=== PATIENT | male | born 1940 | race Caucasian/White ===

== ENCOUNTER 2017-05-01 07:37 | Day surgery (SDC) | payer BC, MEDICARE ==
[2017-04-28 10:39] VITALS: BMI 26.4
[~2017-05-01 07:37] MED LIST: LACTATED RINGERS 1,000 ML IV SCH
[2017-05-01 07:51] VITALS: RESP 18; TEMP 98
[2017-05-01] MEDS ORDERED: LACTATED RINGERS 1,000 ML IV ONE (07:51)
[2017-05-01] MEDS ORDERED: LIDOCAINE 1% 20 ML VIAL (10MG/ML) FOR IV START INTRADERMA ONE (07:51)
[2017-05-01 08:01] LABS: Glucose,Whole Blood 112 mg/dL (75-99)
[2017-05-01] MEDS ORDERED: GLUCAGON 1 MG/ML VIAL ONE (08:20)
[2017-05-01] MEDS ORDERED: LIDOCAINE 1% INJ 10MG/ML (20 ML MDV) ONE (08:20)
[2017-05-01] MEDS ORDERED: PROPOFOL 10 MG/ML 20 ML VIAL IV ONE (08:20)
--- NOTE | 2017-05-01 08:39 | P.GSHP ---
History of Present Illness H&P Date: 05/01/17 Chief Complaint: GERD, screening colonoscopy This a 76-year-old male who presents today for EGD and screening colonoscopy. He's had issues with GERD. Past Medical History Past Medical History: Atrial Fibrillation, Cancer, COPD, Diabetes Mellitus, Eye Disorder, GERD/Reflux, Hyperlipidemia, Hypertension, Prostate Disorder, Sleep Apnea/CPAP/BIPAP Additional Past Medical History / Comment(s): skin cancer- squamous and pre- melanoma, macular degeneration, brain bleed- February 2016, back problems-uses walker , cane as needed. History of Any Multi-Drug Resistant Organisms: None Reported Past Surgical History: Back Surgery, Heart Catheterization, Hernia Repair, Joint Replacement, Orthopedic Surgery, Tonsillectomy Additional Past Surgical History / Comment(s): total rt knee replacement, reverse total rt shoulder, lt knee benign tumor removed external, internal. back surgery with laminectomy and fusion. stevie cataracts Past Anesthesia/Blood Transfusion Reactions: Family History of Problems w/ Anesthesia, Postoperative Nausea & Vomiting (PONV) Additional Past Anesthesia/Blood Transfusion Reaction / Comment(s): mother hx ponv Smoking Status: Former smoker - Past Family History Mother Family Medical History: Cancer Additional Family Medical History / Comment(s): uterine cancer, pre-cancer colon had bowel resection Father Family Medical History: Cancer Additional Family Medical History / Comment(s): lymphoma Medications and Allergies Home Medications Medication Instructions Recorded Confirmed Type Atorvastatin [Lipitor] 40 mg PO DAILY 04/28/17 04/28/17 History Calcium Citrate 250 mg PO DAILY 04/28/17 04/28/17 History Cetirizine HCl 10 mg PO DAILY 04/28/17 04/28/17 History Cyanocobalamin [Vitamin B-12] 500 mcg PO DAILY 04/28/17 04/28/17 History DULoxetine HCL [Cymbalta] 60 mg PO DAILY 04/28/17 04/28/17 History Diltiazem HCl [Cartia Xt] 120 mg PO DAILY 04/28/17 04/28/17 History Fluticasone Nasal [place] [Flonase 1 spray EA NOSTRIL BID 04/28/17 04/28/17 History Nasal [place]] Folic Acid 0.5 mg PO DAILY 04/28/17 04/28/17 History Hydrochlorothiazide 25 mg PO DAILY 04/28/17 04/28/17 History Magnesium 200 mg PO DAILY 04/28/17 04/28/17 History Omeprazole 20 mg PO DAILY 04/28/17 04/28/17 History Pregabalin [Lyrica] 50 mg PO BID 04/28/17 04/28/17 History Tamsulosin HCl [Flomax] 0.4 mg PO DAILY 04/28/17 04/28/17 History Vit C/E/Zn/Coppr/Lutein/Zeaxan 1 each PO BID 04/28/17 04/28/17 History [Preservision Areds 2 Softgel] Warfarin [Coumadin] 5 mg PO WE 04/28/17 04/28/17 History Warfarin [Coumadin] 7.5 mg PO SUMOTUTHFRSA 04/28/17 04/28/17 History metFORMIN HCL [Glucophage] 500 mg PO DAILY 04/28/17 04/28/17 History traMADol HCL [Ultram] 50 mg PO BID 04/28/17 04/28/17 History Allergies Allergy/AdvReac Type Severity Reaction Status Date / Time lisinopril Allergy coughing Verified 04/28/17 09:41 Surgical - Exam Vital Signs Temp Pulse Resp BP Pulse Ox 98.0 F 90 18 151/85 99 05/01/17 07:50 05/01/17 07:50 05/01/17 07:50 05/01/17 07:50 05/01/17 07:50 - General well developed, no distress - Eyes PERRL - ENT normal pinna - Neck no masses - Respiratory normal expansion - Cardiovascular Rhythm: regular - Abdomen Abdomen: soft, non tender Results - Labs Abnormal Lab Results - Last 24 Hours (Table) 05/01/17 Range/Units 07:59 POC Glucose (mg/dL) 112 H (75-99) mg/dL Assessment and Plan Plan: GERD. We'll perform EGD. We'll also perform screening colonoscopy.
--- NOTE | 2017-05-01 09:07 | P.OP ---
Date of Procedure: 05/01/17 Preoperative Diagnosis: GERD Screening colonoscopy Postoperative Diagnosis: Antral gastritis Hiatal hernia Esophagitis Diverticulosis Right colon polyp Procedure(s) Performed: EGD Colonoscopy Implants: Anesthesia: MAC Surgeon: Ivan Kline Pathology: other (Antrum, esophagus, right colon) Condition: stable Disposition: PACU Indications for Procedure: Operative Findings: Description of Procedure: The patient's placed on the endoscopy table lateral position. He received IV sedation. The gastroscope placed oropharynx and passed into the esophagus and the stomach. The scope was then placed through the pylorus. First and second portion of the duodenum appeared normal. The scope was then brought back the antrum this appeared mildly inflamed. A biopsies was performed. Opened retroflexed and the remainder of the stomach appeared normal. There was a moderate size hiatal hernia. The GE junction was at 38 cm. The distal esophagus appeared inflamed and a biopsies performed. The proximal esophagus appeared normal. The scope was withdrawn for patient. Next digital rectal exam was performed which revealed a few external hemorrhoids. The prostate was symmetric without nodules. The flexible colonoscope was then placed patient anus and passed throughout the entire colon. The ileocecal valve was visualized. The scope was then brought back and the right colon there was a small sessile polyp. This removed the forcep. The remainder of the transverse colon appeared normal. In the descending; there is mild diverticular changes. The scope was then brought back the rectum and this appeared normal. Scope was withdrawn for patient.
[2017-05-01 09:26] VITALS: BP 181/83; PULSE 69
== END 2017-05-01 10:17 | disposition home or self-care (01) ==
LOC: ORWHC2ENDO 07:37
PROVIDERS: ATTEND Surgery
DX: Z12.11 Encounter for screening for malignant neoplasm of colon (principal); K29.50 Unspecified chronic gastritis without bleeding; K21.0 Gastro-esophageal reflux disease with esophagitis; K20.0 Eosinophilic esophagitis; K44.9 Diaphragmatic hernia without obstruction or gangrene; D12.2 Benign neoplasm of ascending colon; K57.30 Diverticulosis of large intestine without perforation or abscess without bleeding; K64.4 Residual hemorrhoidal skin tags; I48.91 Unspecified atrial fibrillation; Z79.01 Long term (current) use of anticoagulants; J44.9 Chronic obstructive pulmonary disease, unspecified; E11.9 Type 2 diabetes mellitus without complications; Z79.84 Long term (current) use of oral hypoglycemic drugs; G47.33 Obstructive sleep apnea (adult) (pediatric); Z99.89 Dependence on other enabling machines and devices; H35.30 Unspecified macular degeneration; I10 Essential (primary) hypertension; E78.5 Hyperlipidemia, unspecified; Z87.891 Personal history of nicotine dependence; Z79.891 Long term (current) use of opiate analgesic; Z79.51 Long term (current) use of inhaled steroids; Z79.899 Other long term (current) drug therapy; Z88.8 Allergy status to other drugs, medicaments and biological substances
CPT/HCPCS: 88305; 88342; 45380; 43239; J1610; J2001; J2704

== ENCOUNTER → 2017-05-12 | Outpatient (CLI) | payer MEDICARE, BC ==
[2017-05-12 14:43] LABS: INR 1.1 (<1.2); Partial Thromboplastin Time 24.3 sec (22.0-30.0)
== END | disposition home or self-care (01) ==
LOC: LABWHC1 14:16
PROVIDERS: ATTEND Physical Medicine & Rehabilitation
DX: M48.06 Spinal stenosis, lumbar region (principal); M43.16 Spondylolisthesis, lumbar region; M41.26 Other idiopathic scoliosis, lumbar region; M51.17 Intervertebral disc disorders with radiculopathy, lumbosacral region; M47.817 Spondylosis without myelopathy or radiculopathy, lumbosacral region; M54.5 Low back pain; M47.814 Spondylosis without myelopathy or radiculopathy, thoracic region; Z79.01 Long term (current) use of anticoagulants; Z98.890 Other specified postprocedural states; Z96.651 Presence of right artificial knee joint
CPT/HCPCS: 36415; 85610; 85730

== ENCOUNTER → 2017-05-28 | Outpatient (CLI) | payer MEDICARE, BC ==
[2017-05-28 16:56] LABS: Partial Thromboplastin Time 33.9 sec (22.0-30.0); Prothrombin Time 39.5 sec (9.0-12.0)
[2017-05-28 17:10] LABS: Potassium 3.9 mmol/L (3.5-5.1)
== END | disposition home or self-care (01) ==
LOC: LABPAT 15:50
PROVIDERS: ATTEND Surgery
DX: Z01.818 Encounter for other preprocedural examination (principal); I48.91 Unspecified atrial fibrillation; Z51.81 Encounter for therapeutic drug level monitoring; Z79.01 Long term (current) use of anticoagulants
CPT/HCPCS: 80051; 85610; 85730

== ENCOUNTER 2017-06-05 06:26 | Day surgery (SDC) | payer MEDICARE ==
[2017-05-27 16:58] VITALS: BMI 26.4
[~2017-06-05 06:26] MED LIST changes: +HEPARIN SODIUM,PORCINE 5,000 UNIT/ML 1 ML VIAL SQ ONE; +HYDROmorphone 1 MG/ML 1 ML SYRINGE IVP PRN; -LACTATED RINGERS 1,000 ML IV SCH; +ONDANSETRON 4 MG/2 ML VIAL IVP PRN; +ceFAZolin 2 GM in SODIUM CHLORIDE 0.9% 100 ML IVPB ONE
[2017-06-05] MEDS ORDERED: LIDOCAINE 1% 20 ML VIAL (10MG/ML) FOR IV START INTRADERMA ONE (07:01)
[2017-06-05] MEDS: LACTATED RINGERS 1,000 ML IV SCH (07:01)
[2017-06-05 07:05] LABS: Glucose,Whole Blood 130 mg/dL (75-99)
[2017-06-05] MEDS ORDERED: BUPIVACAINE (PF) 0.25% 30 ML VIAL SQ ONE (07:25)
[2017-06-05 07:39] LABS: Partial Thromboplastin Time 24.6 sec (22.0-30.0)
[2017-06-05 07:41] LABS: INR 1.1 (<1.2)
--- NOTE | 2017-06-05 07:55 | P.GSHP ---
History of Present Illness H&P Date: 06/05/17 Chief Complaint: GERD This is a 76-year-old male referred from Dr. merrill.The patient has had long- standing problems with reflux esophagitis. The patient underwent recent EGD is found have evidence of esophagitis. Patient has been well informed on the procedure of laparoscopic Edwin fundoplication. The patient is aware the risk of the conversion to the open procedure, risk of injury to the stomach, liver and spleen. The patient is also a risk of recurrent GERD and dysphagia symptoms. The patient understands there is a postoperative diet of full liquids for 2 weeks after surgery. Past Medical History Past Medical History: Atrial Fibrillation, Cancer, COPD, Diabetes Mellitus, Eye Disorder, GERD/Reflux, Hyperlipidemia, Hypertension, Prostate Disorder, Sleep Apnea/CPAP/BIPAP Additional Past Medical History / Comment(s): skin cancer- squamous and pre- melanoma, macular degeneration, brain bleed- February 2016, back problems-uses walker , cane as needed. History of Any Multi-Drug Resistant Organisms: None Reported Past Surgical History: Back Surgery, Heart Catheterization, Hernia Repair, Joint Replacement, Orthopedic Surgery, Tonsillectomy Additional Past Surgical History / Comment(s): total rt knee replacement, reverse total rt shoulder, lt knee benign tumor removed external, internal. back surgery with laminectomy and fusion. stevie cataracts Past Anesthesia/Blood Transfusion Reactions: Family History of Problems w/ Anesthesia, Postoperative Nausea & Vomiting (PONV) Additional Past Anesthesia/Blood Transfusion Reaction / Comment(s): mother hx ponv Smoking Status: Former smoker - Past Family History Mother Family Medical History: Cancer Additional Family Medical History / Comment(s): uterine cancer, pre-cancer colon had bowel resection Father Family Medical History: Cancer Additional Family Medical History / Comment(s): lymphoma Medications and Allergies Home Medications Medication Instructions Recorded Confirmed Type Atorvastatin [Lipitor] 40 mg PO DAILY 04/28/17 06/05/17 History Calcium Citrate 250 mg PO DAILY 04/28/17 06/05/17 History Cetirizine HCl 10 mg PO DAILY 04/28/17 06/05/17 History Cyanocobalamin [Vitamin B-12] 500 mcg PO DAILY 04/28/17 06/05/17 History DULoxetine HCL [Cymbalta] 60 mg PO DAILY 04/28/17 06/05/17 History Diltiazem HCl [Cartia Xt] 120 mg PO DAILY 04/28/17 06/05/17 History Fluticasone Nasal [place] [Flonase 1 spray EA NOSTRIL BID 04/28/17 06/05/17 History Nasal [place]] Folic Acid 0.5 mg PO DAILY 04/28/17 06/05/17 History Hydrochlorothiazide 25 mg PO DAILY 04/28/17 06/05/17 History Magnesium 200 mg PO DAILY 04/28/17 06/05/17 History Omeprazole 20 mg PO DAILY 04/28/17 06/05/17 History Pregabalin [Lyrica] 50 mg PO BID 04/28/17 06/05/17 History Tamsulosin HCl [Flomax] 0.4 mg PO DAILY 04/28/17 06/05/17 History Vit C/E/Zn/Coppr/Lutein/Zeaxan 1 each PO BID 04/28/17 06/05/17 History [Preservision Areds 2 Softgel] Warfarin [Coumadin] 5 mg PO WE 04/28/17 06/05/17 History Warfarin [Coumadin] 7.5 mg PO SUMOTUTHFRSA 04/28/17 06/05/17 History metFORMIN HCL [Glucophage] 500 mg PO DAILY 04/28/17 06/05/17 History traMADol HCL [Ultram] 50 mg PO BID 04/28/17 06/05/17 History Allergies Allergy/AdvReac Type Severity Reaction Status Date / Time lisinopril Allergy coughing Verified 06/05/17 06:47 Surgical - Exam Vital Signs Temp Pulse Resp BP Pulse Ox 97.7 F 73 16 150/76 97 06/05/17 06:52 06/05/17 06:52 06/05/17 06:52 06/05/17 06:52 06/05/17 06:52 - General well developed, no distress - Eyes PERRL - ENT normal pinna - Neck no masses - Respiratory normal expansion - Cardiovascular Rhythm: regular - Abdomen Abdomen: soft, non tender Results - Labs Abnormal Lab Results - Last 24 Hours (Table) 06/05/17 Range/Units 06:55 POC Glucose (mg/dL) 130 H (75-99) mg/dL Assessment and Plan Plan: GERD. We'll perform laparoscopic Edwin fundoplication.
[2017-06-05] MEDS ORDERED: ROCURONIUM BROMIDE 10 MG/ML 10 ML VIAL IV ONE (07:59)
[2017-06-05] MEDS ORDERED: LIDOCAINE 1% INJ 10MG/ML (20 ML MDV) ONE (07:59)
[2017-06-05] MEDS ORDERED: GLYCOPYRROLATE 0.2 MG/ML 2 ML VIAL ONE (07:59)
[2017-06-05] MEDS ORDERED: LABETALOL 5 MG/ML VIAL MDV ONE (07:59)
[2017-06-05] MEDS ORDERED: MIDAZOLAM 2 MG/2 ML VIAL ONE (07:59)
[2017-06-05] MEDS ORDERED: PROPOFOL 10 MG/ML 20 ML VIAL IV ONE (07:59)
[2017-06-05] MEDS ORDERED: NEOSTIGMINE 1 MG/ML 10 ML VIAL ONE (07:59)
[2017-06-05] MEDS ORDERED: PHENYLEPHRINE-0.9% NACL SYG 1 MG/10 ML SYRINGE ONE (07:59)
[2017-06-05] MEDS ORDERED: fentaNYL (PF) 50 MCG/ML 2 ML AMP ONE (07:59)
[2017-06-05] MEDS ORDERED: ePHEDrine SULFATE/0.9% NACL/PF 50 MG/5 ML SYRINGE IV ONE (07:59)
[2017-06-05] MEDS ORDERED: SUCCINYLCHOLINE CHLORIDE 100 MG/5 ML SYR IV ONE (07:59)
[2017-06-05] MEDS ORDERED: LACTATED RINGERS 1,000 ML IV ONE (08:53)
--- NOTE | 2017-06-05 08:57 | P.OP ---
Date of Procedure: 06/05/17 Preoperative Diagnosis: GERD Postoperative Diagnosis: GERD Procedure(s) Performed: Laparoscopic Edwin fundal plication Implants: Anesthesia: ANNIA Surgeon: Ivan Kline Estimated Blood Loss (ml): 5 Pathology: none sent Condition: stable Disposition: PACU Indications for Procedure: Operative Findings: Description of Procedure: HaThe patient was placed on the operating table in the supine position. The patient received general anesthesia. And was placed in dorsal lithotomy position. The patient was prepped and draped in the usual sterile fashion. The skin incision sites were anesthetized with 1% local Xylocaine. The skin was incised in the left periumbilical area and then using a blade less 5 mm trocar under direct visualization panel cavity was entered. After adequate insufflation the laparoscope was then placed into the peritoneal cavity. Next a 5 mm trochars placed in the right epigastric position. Another 5 millimeter trocar the right lateral position. Another 5 millimeter trocar in the left lateral position a 5 mm trocar is placed in the left epigastric position. And then the initial 5 mm trocar was exchanged for a 10 mm trocar. The left lateral lobe liver was retracted. The hernia was seen. The crural defect was then dissected using the Harmonic scissors device. A 360 crural dissection was performed the esophagus stomach was reduced back into the peritoneal Cavity. The crural defect was then closed using 2-0 Ethibond suture. Next the fundus of the stomach was mobilized using the Harvard scissors device. and then a 58-Kinyarwanda bougie dilator was placed oropharynx passed into the esophagus and stomach the fundal plication wrap was then performed by grasping the fundus posteriorly and bringing it around the esophagus and stomach fundoplication was then performed using 2-0 Ethibond suture. Care was taken that the fundal location rested over top of the intra-abdominal esophagus. There was no injury seen to the stomach or esophagus. The dilator was then withdrawn. The abdomen was irrigated there is no bleeding seen. The trochars were then withdrawn and then skin incision sites were closed using 3-0 Monocryl suture Steri-Strips are applied. Patient thought procedure well and sent to recovery room in stable condition.
[2017-06-05] MEDS ORDERED: ONDANSETRON 4 MG/2 ML VIAL IVP PRN (08:59)
[2017-06-05] MEDS ORDERED: HYDROmorphone 1 MG/ML 1 ML SYRINGE IVP PRN (08:59)
[2017-06-05 09:35] LABS: Glucose,Whole Blood 131 mg/dL (75-99)
[2017-06-05] MEDS: hydrALAZINE HCL 20 MG/ML 1 ML VIAL IVP ONE ×2 (09:48→09:59)
--- NOTE | 2017-06-05 11:25 | P.CONS ---
History of Present Illness - Reason for Consult Consult date: 06/05/17 Medical management Requesting physician: Ivan Kline - Chief Complaint Status post Edwin fundoplication - History of Present Illness This is a 76-year-old male, patient of Dr. Morelos. Patient has a known past medical history of GERD, atrial fibrillation, IVs mellitus type II, hyperlipidemia, hypertension, obstructive sleep apnea and a brain bleed in February 2016 after a fall. Patient did not require any surgical intervention at that time. Patient is currently in the hospital for Edwin fundoplication for his severe acid reflux. Patient tolerated surgery well. He is awake and alert. Reports that his pain is controlled. He did have some elevated blood pressures after surgery. N did require dose of IV hydralazine. Blood pressures have shown improvement. All medications will be restarted. Patient did not take blood pressure medications this morning. Patient denies any chest pain or shortness breath. Denies any nausea or vomiting. Bowel movements prior to surgery later normal. He does have a history of BPH in which she is on Flomax otherwise no new urinary symptoms. Review of Systems Please refer to HPI otherwise unremarkable Past Medical History Past Medical History: Atrial Fibrillation, Cancer, COPD, Diabetes Mellitus, Eye Disorder, GERD/Reflux, Hyperlipidemia, Hypertension, Prostate Disorder, Sleep Apnea/CPAP/BIPAP Additional Past Medical History / Comment(s): skin cancer- squamous and pre- melanoma, macular degeneration, brain bleed- February 2016, back problems-uses walker , cane as needed. History of Any Multi-Drug Resistant Organisms: None Reported Past Surgical History: Back Surgery, Heart Catheterization, Hernia Repair, Joint Replacement, Orthopedic Surgery, Tonsillectomy Additional Past Surgical History / Comment(s): total rt knee replacement, reverse total rt shoulder, lt knee benign tumor removed external, internal. back surgery with laminectomy and fusion. stevie cataracts Past Anesthesia/Blood Transfusion Reactions: Family History of Problems w/ Anesthesia, Postoperative Nausea & Vomiting (PONV) Additional Past Anesthesia/Blood Transfusion Reaction / Comm: mother hx ponv Smoking Status: Former smoker - Past Family History Mother Family Medical History: Cancer Additional Family Medical History / Comment(s): uterine cancer, pre-cancer colon had bowel resection Father Family Medical History: Cancer Additional Family Medical History / Comment(s): lymphoma Medications and Allergies Home Medications Medication Instructions Recorded Confirmed Type Atorvastatin [Lipitor] 40 mg PO DAILY 04/28/17 06/05/17 History Calcium Citrate 250 mg PO DAILY 04/28/17 06/05/17 History Cetirizine HCl 10 mg PO DAILY 04/28/17 06/05/17 History Cyanocobalamin [Vitamin B-12] 500 mcg PO DAILY 04/28/17 06/05/17 History DULoxetine HCL [Cymbalta] 60 mg PO DAILY 04/28/17 06/05/17 History Diltiazem HCl [Cartia Xt] 120 mg PO DAILY 04/28/17 06/05/17 History Fluticasone Nasal [place] [Flonase 1 spray EA NOSTRIL BID 04/28/17 06/05/17 History Nasal [place]] Folic Acid 0.5 mg PO DAILY 04/28/17 06/05/17 History Hydrochlorothiazide 25 mg PO DAILY 04/28/17 06/05/17 History Magnesium 200 mg PO DAILY 04/28/17 06/05/17 History Omeprazole 20 mg PO DAILY 04/28/17 06/05/17 History Pregabalin [Lyrica] 50 mg PO BID 04/28/17 06/05/17 History Tamsulosin HCl [Flomax] 0.4 mg PO DAILY 04/28/17 06/05/17 History Vit C/E/Zn/Coppr/Lutein/Zeaxan 1 each PO BID 04/28/17 06/05/17 History [Preservision Areds 2 Softgel] Warfarin [Coumadin] 5 mg PO WE 04/28/17 06/05/17 History Warfarin [Coumadin] 7.5 mg PO SUMOTUTHFRSA 04/28/17 06/05/17 History metFORMIN HCL [Glucophage] 500 mg PO DAILY 04/28/17 06/05/17 History traMADol HCL [Ultram] 50 mg PO BID 04/28/17 06/05/17 History Allergies Allergy/AdvReac Type Severity Reaction Status Date / Time lisinopril Allergy coughing Verified 06/05/17 06:47 Physical Exam Vitals: Vital Signs Temp Pulse Pulse Resp BP BP Pulse Ox 06/05/17 10:10 68 16 123/58 93 L 06/05/17 10:05 133/62 06/05/17 09:59 148/69 06/05/17 09:53 61 16 164/77 98 06/05/17 09:47 173/85 06/05/17 09:42 174/83 06/05/17 09:38 56 L 16 189/85 100 06/05/17 09:23 62 16 194/91 100 06/05/17 09:08 97 F L 82 12 198/91 97 06/05/17 06:52 97.7 F 73 16 150/76 97 Intake and Output 06/04/17 06/05/17 06/05/17 22:59 06:59 14:59 Intake Total 1350 Output Total 10 Balance 1340 Intake: IV 1350 Output: Estimated Blood Loss 10 Head normocephalic Neck supple Lungs clear to auscultation bilaterally no wheezing or crackles Heart irregular rhythm Abdomen is soft nontender nondistended hypoactive bowel sounds. Incision sites clean dry and intact Extremities no edema Neuro alert and orientated to 3 Results Labs: Abnormal Lab Results - Last 24 Hours (Table) 06/05/17 06/05/17 Range/Units 06:55 09:33 POC Glucose (mg/dL) 130 H 131 H (75-99) mg/dL Assessment and Plan Plan: 1. GERD: Status post Edwin fundoplication 2. Essential hypertension with episodes of accelerated hypertension after surgery. Patient did require 1 dose of IV hydralazine. Blood pressures are now stable. We'll resume his Cardizem today. Continue to monitor blood pressures 3. Chronic atrial fibrillation: Anticoagulated with Coumadin at home. We'll have nursing staff verify with surgeon if it is okay to resume Coumadin. Continue Cardizem. Monitor daily PT/INRs 4. History of obstructive sleep apnea: Patient brought CPAP from home 5. Diabetes mellitus type 2: Hold metformin while hospitalized. Add Humalog with sliding scale coverage 6. Hyperlipidemia resume Lipitor 7. History of brain bleed in February 2016 after a fall from a ladder an injury to his head. DVT prophylaxis subcu Lovenox Check CBC, CMP and PT/INR Thank you for this consultation. We will continue to follow along with you during patient's hospitalization. Time with Patient: Greater than 30 (Greater than 50% of the total time spent in counseling and coordination of care.I performed an examination of the patient and discussed their management with the physician Cmm Technician. I have reviewed the Physician Cmm Technician's notes and agree with the documented findings and plan of care)
[2017-06-05 11:34] LABS: Glucose,Whole Blood 149 mg/dL (75-99)
[2017-06-05 11:58] LABS: Basophils % (A) 0 %; CH 29.3; CHCM 33.2; Eosinophils # (A) 0.1 k/uL (0-0.7); Eosinophils % (A) 1 %; HCT 35.7 % (39.0-53.0); HDW 2.49; Luc # (Auto) 0.21; Luc % (Auto) 3; Lymphocytes # (A) 1.7 k/uL (1.0-4.8); Lymphocytes % (A) 21 %; MCH 29.7 pg (25.0-35.0); MCHC 33.5 g/dL (31.0-37.0); MCV 88.6 fL (80.0-100.0); Monocytes # (A) 0.5 k/uL (0-1.0); Monocytes % (A) 7 %; Neutrophils # (A) 5.4 k/uL (1.3-7.7); Neutrophils % (A) 68 %; RBC 4.03 m/uL (4.30-5.90); RDW 13.5 % (11.5-15.5); WBC (Perox) 8.32
[2017-06-05 12:10] LABS: ALT 45 U/L (21-72); AST 32 U/L (17-59); Alkaline Phosphatase 100 U/L (38-126); Anion Gap 11 mmol/L; Blood Urea Nitrogen 23 mg/dL (9-20); Calcium 8.9 mg/dL (8.4-10.2); Carbon Dioxide 26 mmol/L (22-30); Chloride 101 mmol/L (98-107); Glucose 148 mg/dL (74-99); Non-African American GFR(MDRD) >60 (>60 ml/min/1.73 sqM); Potassium 3.7 mmol/L (3.5-5.1); Sodium 138 mmol/L (137-145); Total Bilirubin 0.5 mg/dL (0.2-1.3); Total Protein 6.1 g/dL (6.3-8.2)
[2017-06-05] MEDS: TAMSULOSIN 0.4 MG CAP.ER.24H PO SCH ×2 (12:59→13:30)
[2017-06-05] MEDS: DILTIAZEM CD 120 MG CAP.ER.24H PO SCH ×2 (12:59→13:30)
[2017-06-05] MEDS: ENOXAPARIN 40 MG/0.4 ML SYRINGE SQ SCH (12:59)
[2017-06-05] MEDS: INSULIN LISPRO (humaLOG) 300 UNIT/3 ML VIAL SQ SCH ×3 (13:30→20:30)
[2017-06-05] MEDS: D5-0.45% NACL WITH KCL 20MEQ/L 1,000 ML IV SCH ×2 (13:57→17:53)
--- NOTE | 2017-06-05 14:52 | FL ---
EXAMINATION TYPE: FL esophagus cervic/pharynx DATE OF EXAM: 06/05/2017 LIMITED UGI-ESOPHAGRAM: CLINICAL HISTORY: History of epigastric pain, reflux, and hiatal hernia status post Brien fundoplic ation surgery earlier today. TECHNIQUE: Limited esophagram is performed utilizing 10 oz of Omnipaque 350. A total of 74 seconds o f fluoroscopic time was utilized during procedure. FINDINGS: The patient swallowed contrast without difficulty or delay. Some esophageal dysmotility wi th abnormal dilatation secondary and tertiary contractions is present. There is small amount of free air consistent with recent surgery noted. There is mild to moderate delay in flow of contrast along t he diaphragmatic hiatus into the stomach at site of surgery, there is no evidence of contrast extrava sation to suggest leak. Some contrast flows, other remains within distal esophagus after 1 to 2 ashish dillon. No persistent hiatal hernia is seen. Patient remains asymptomatic. IMPRESSION: No evidence of leak status post Brien fundoplication surgery earlier today. There is mil d to moderate obstruction but patient is noted to remain asymptomatic.
[2017-06-05 16:36] LABS: Glucose,Whole Blood 131 mg/dL (75-99)
[2017-06-05] MEDS: LIDOCAINE 5% PATCH TOPICAL SCH (17:49)
[2017-06-05] MEDS ORDERED: WARFARIN 7.5 MG TAB PO SCH (18:00)
[2017-06-05 19:39] LABS: Hemoglobin A1C 6.5 % (4.2-6.1)
[2017-06-05 20:23] LABS: Glucose,Whole Blood 150 mg/dL (75-99)
[2017-06-05] MEDS: PREGABALIN 50 MG CAP PO SCH (20:29)
[2017-06-05] MEDS: FLUTICASONE 50MCG/SPRAY NASAL 16GM EA NOSTRIL SCH (20:30)
[2017-06-05 22:40] VITALS: RESP 16
[2017-06-06] MEDS: D5-0.45% NACL WITH KCL 20MEQ/L 1,000 ML IV SCH ×2 (06:00→08:21)
[2017-06-06] MEDS: LACTATED RINGERS 1,000 ML IV SCH (06:06)
[2017-06-06] MEDS ORDERED: PANTOPRAZOLE 40 MG TABLET PO SCH (06:30)
[2017-06-06 07:07] LABS: Basophils % (A) 0 %; CH 30.2; CHCM 33.4; Eosinophils # (A) 0.1 k/uL (0-0.7); Eosinophils % (A) 2 %; HCT 37.5 % (39.0-53.0); HDW 2.37; HGB 12.2 gm/dL (13.0-17.5); Luc # (Auto) 0.17; Luc % (Auto) 2; Lymphocytes # (A) 1.4 k/uL (1.0-4.8); Lymphocytes % (A) 19 %; MCH 29.6 pg (25.0-35.0); MCHC 32.6 g/dL (31.0-37.0); MCV 90.8 fL (80.0-100.0); Mean Platelet Volume 8.6; Monocytes # (A) 0.5 k/uL (0-1.0); Monocytes % (A) 7 %; Neutrophils # (A) 4.9 k/uL (1.3-7.7); Neutrophils % (A) 69 %; RBC 4.13 m/uL (4.30-5.90); RDW 14.5 % (11.5-15.5); WBC 7.2 k/uL (3.8-10.6); WBC (Perox) 6.94
[2017-06-06 07:10] LABS: INR 1.1 (<1.2); Prothrombin Time 11.5 sec (9.0-12.0)
[2017-06-06 07:29] LABS: ALT 35 U/L (21-72); AST 32 U/L (17-59); Alkaline Phosphatase 98 U/L (38-126); Anion Gap 9 mmol/L; Blood Urea Nitrogen 10 mg/dL (9-20); Calcium 8.8 mg/dL (8.4-10.2); Carbon Dioxide 28 mmol/L (22-30); Chloride 102 mmol/L (98-107); Glucose 137 mg/dL (74-99); Non-African American GFR(MDRD) >60 (>60 ml/min/1.73 sqM); Potassium 4.3 mmol/L (3.5-5.1); Sodium 139 mmol/L (137-145); Total Bilirubin 0.7 mg/dL (0.2-1.3); Total Protein 6.1 g/dL (6.3-8.2)
[2017-06-06 07:30] LABS: Glucose,Whole Blood 144 mg/dL (75-99)
[2017-06-06] MEDS: INSULIN LISPRO (humaLOG) 300 UNIT/3 ML VIAL SQ SCH ×2 (08:19→12:19)
[2017-06-06] MEDS: LIDOCAINE 5% PATCH TOPICAL SCH (08:19)
[2017-06-06] MEDS: DILTIAZEM CD 120 MG CAP.ER.24H PO SCH (08:20)
[2017-06-06] MEDS: TAMSULOSIN 0.4 MG CAP.ER.24H PO SCH (08:20)
[2017-06-06] MEDS: ENOXAPARIN 40 MG/0.4 ML SYRINGE SQ SCH (08:20)
[2017-06-06] MEDS: FLUTICASONE 50MCG/SPRAY NASAL 16GM EA NOSTRIL SCH (08:21)
[2017-06-06] MEDS: PREGABALIN 50 MG CAP PO SCH (08:24)
[2017-06-06] MEDS ORDERED: DILTIAZEM CD 120 MG CAP.ER.24H PO SCH (09:00)
[2017-06-06] MEDS ORDERED: HYDROCHLOROTHIAZIDE 25 MG TAB PO SCH (09:00)
[2017-06-06] MEDS ORDERED: DULoxetine HCL 60 MG CAPSULE.DR PO SCH (09:00)
[2017-06-06] MEDS ORDERED: CALCIUM CARBONATE 500 MG CHEWABLE PO SCH (09:00)
[2017-06-06] MEDS ORDERED: MAGNESIUM OXIDE 400 MG TAB PO SCH (09:00)
[2017-06-06] MEDS ORDERED: VIT A,C & E-LUTEIN-MINERALS 1 EACH TAB PO SCH (09:00)
[2017-06-06] MEDS ORDERED: LORATADINE 10 MG TAB PO SCH (09:00)
[2017-06-06] MEDS ORDERED: ATORVASTATIN 40 MG TAB PO SCH (09:00)
[2017-06-06 11:56] LABS: Glucose,Whole Blood 126 mg/dL (75-99)
[2017-06-06] MEDS ORDERED: FOLIC ACID 1 MG TAB PO SCH (12:00)
[2017-06-06] MEDS ORDERED: CYANOCOBALAMIN 500 MCG TAB PO SCH (12:00)
[2017-06-06 15:43] VITALS: BP 118/70; PULSE 104; TEMP 98.1
--- NOTE | 2017-06-06 15:46 | P.PN ---
Subjective Patient status post Edwin fundal plication. Tolerating clear liquid diet. Last night patient had episode of chest pressure EKG had shown accelerated junctional rhythm. Patient has had no longer having chest pressure. Blood pressures were elevated this morning. Since his tolerating diet fluids and been discontinued blood pressures are showing improvement. He did have a blood pressure as high as 196/84. Repeat blood pressure is 155%. Patient reports having bowel movements. I did have one episode of urinary retention that improved after straight catheterization since then he has been able to urinate on his own Objective - Vital Signs Vital signs: Vital Signs Temp 97.7 F 06/06/17 07:00 Pulse 79 06/06/17 07:00 Resp 16 06/06/17 07:00 BP 155/77 06/06/17 11:36 Pulse Ox 93 L 06/06/17 07:00 Intake & Output 06/05/17 06/06/17 06/06/17 18:59 06:59 18:59 Intake Total 1590 1800 Output Total 685 1300 Balance 905 500 Weight 74.389 kg Intake: IV 1350 Intake, IV Titration 1250 Amount D5-0.45% NaCl with KCl 1250 20Meq/l 1,000 ml @ 125 mls/hr IV .Q8H [facility], [facility] Rx#: [id number] Oral 240 550 Output: Urine 675 1300 Straight 675 Estimated Blood Loss 10 Other: Voiding Method Urinal Urinal - Exam Head normocephalic Neck supple Lungs clear to auscultation bilaterally no wheezing or crackles Heart regular rate and rhythm S1-S2, no rub or gallop Abdomen is soft nontender nondistended positive bowel sounds no hepatosplenomegaly Extremities no edema Neuro alert and orientated to 3 - Labs CBC & Chem 7: 06/06/17 06:38 06/06/17 06:38 Labs: Abnormal Lab Results - Last 24 Hours (Table) 06/05/17 06/05/17 06/05/17 Range/Units 11:25 16:16 20:22 RBC (4.30-5.90) m/uL Hgb (13.0-17.5) gm/dL Hct (39.0-53.0) % Glucose (74-99) mg/dL POC Glucose (mg/dL) 131 H 150 H (75-99) mg/dL Hemoglobin A1c 6.5 H (4.2-6.1) % Total Protein (6.3-8.2) g/dL 06/06/17 06/06/17 06/06/17 Range/Units 06:38 06:38 07:21 RBC 4.13 L (4.30-5.90) m/uL Hgb 12.2 L (13.0-17.5) gm/dL Hct 37.5 L (39.0-53.0) % Glucose 137 H (74-99) mg/dL POC Glucose (mg/dL) 144 H (75-99) mg/dL Hemoglobin A1c (4.2-6.1) % Total Protein 6.1 L (6.3-8.2) g/dL 06/06/17 Range/Units 11:51 RBC (4.30-5.90) m/uL Hgb (13.0-17.5) gm/dL Hct (39.0-53.0) % Glucose (74-99) mg/dL POC Glucose (mg/dL) 126 H (75-99) mg/dL Hemoglobin A1c (4.2-6.1) % Total Protein (6.3-8.2) g/dL Assessment and Plan Plan: 1. GERD: Status post Edwin fundoplication 2. Essential hypertension with episodes of accelerated hypertension after surgery. Patient did require 1 dose of IV hydralazine. Blood pressures are now stable. We'll resume his Cardizem today. Continue to monitor blood pressures. Patient did have elevated blood pressures improved after IV fluids discontinued. 3. Chronic atrial fibrillation: Anticoagulated with Coumadin at home. Patient was restarted on his Coumadin 4. History of obstructive sleep apnea: Patient brought CPAP from home 5. Diabetes mellitus type 2: Hold metformin while hospitalized. Add Humalog with sliding scale coverage 6. Hyperlipidemia resume Lipitor 7. History of brain bleed in February 2016 after a fall from a ladder an injury to his head. 8. Chest pressure likely secondary to gas buildup from surgery. Symptoms have resolved. EKG had shown accelerated junctional rhythm. Reviewed with Dr. Soto. Patient is stable for discharge Patient follow-up with PCP in 1 week and to continue home medications. DVT prophylaxis subcu Lovenox
--- NOTE | 2017-06-06 15:48 | P.DS ---
Providers Date of admission: 06/05/2017 Expected date of discharge: 06/06/17 Attending physician: Ivan Kline Consults: 06/05/17 08:59 Consult Physician Routine Consulting Provider: Milan Soto Consult Reason/Comments: Medical management Do you want consulting provider notified?: Yes Primary care physician: [facility] Course: This is a 76-year-old male underwent laparoscopic Edwin location. Patient's postoperative arrival. Please see chart for details. Procedures: Laparoscopic Edwin fundal plication Patient Condition at Discharge: Good Plan - Discharge Summary New Discharge Prescriptions: New Docusate [Colace] 100 mg PO BID #20 capsule HYDROcodone/APAP 7.5-325MG [[place] 7.5] 1 each PO Q4H PRN #60 tab PRN Reason: Pain No Action Diltiazem HCl [Cartia Xt] 120 mg PO DAILY Vit C/E/Zn/Coppr/Lutein/Zeaxan [Preservision Ared[place] 2 Softgel] 1 each PO BID Cyanocobalamin [Vitamin B-12] 500 mcg PO DAILY metFORMIN HCL [Glucophage] 500 mg PO DAILY Warfarin [Coumadin] 5 mg PO WE Warfarin [Coumadin] 7.5 mg PO SUMOTUTHFRSA Pregabalin [Lyrica] 50 mg PO BID Omeprazole 20 mg PO DAILY Folic Acid 0.5 mg PO DAILY Fluticasone Nasal [place] [Flonase Nasal [place]] 1 spray EA NOSTRIL BID DULoxetine HCL [Cymbalta] 60 mg PO DAILY Cetirizine HCl 10 mg PO DAILY Atorvastatin [Lipitor] 40 mg PO DAILY Tamsulosin HCl [Flomax] 0.4 mg PO DAILY traMADol HCL [Ultram] 50 mg PO BID Magnesium 200 mg PO DAILY Hydrochlorothiazide 25 mg PO DAILY Calcium Citrate 250 mg PO DAILY Discharge Medication List Atorvastatin [Lipitor] 40 mg PO DAILY 04/28/17 [History] Calcium Citrate 250 mg PO DAILY 04/28/17 [History] Cetirizine HCl 10 mg PO DAILY 04/28/17 [History] Cyanocobalamin [Vitamin B-12] 500 mcg PO DAILY 04/28/17 [History] DULoxetine HCL [Cymbalta] 60 mg PO DAILY 04/28/17 [History] Diltiazem HCl [Cartia Xt] 120 mg PO DAILY 04/28/17 [History] Fluticasone Nasal [place] [Flonase Nasal [place]] 1 spray EA NOSTRIL BID 04/28/17 [ History] Folic Acid 0.5 mg PO DAILY 04/28/17 [History] Hydrochlorothiazide 25 mg PO DAILY 04/28/17 [History] Magnesium 200 mg PO DAILY 04/28/17 [History] Omeprazole 20 mg PO DAILY 04/28/17 [History] Pregabalin [Lyrica] 50 mg PO BID 04/28/17 [History] Tamsulosin HCl [Flomax] 0.4 mg PO DAILY 04/28/17 [History] Vit C/E/Zn/Coppr/Lutein/Zeaxan [Preservision [place]red[place] 2 Softgel] 1 each PO BID 01/10 [History] Warfarin [Coumadin] 5 mg PO WE 04/28/17 [History] Warfarin [Coumadin] 7.5 mg PO SUMOTUTHFRSA 04/28/17 [History] metFORMIN HCL [Glucophage] 500 mg PO DAILY 04/28/17 [History] traMADol HCL [Ultram] 50 mg PO BID 04/28/17 [History] Docusate [Colace] 100 mg PO BID #20 capsule 06/06/17 [Rx] HYDROcodone/APAP 7.5-325MG [[place] 7.5] 1 each PO Q4H PRN #60 tab 06/06/17 [Rx] Follow up Appointment(s)/Referral(s): Ivan Kline MD [STAFF PHYSICIAN] - 1 Week Discharge Disposition: HOME SELF-CARE
[2017-06-06 16:57] LABS: Glucose,Whole Blood 92 mg/dL (75-99)
[2017-06-11] MEDS ORDERED: WARFARIN 5 MG TAB PO SCH (18:00)
== END 2017-06-06 17:29 | disposition home or self-care (01) ==
LOC: OR 06:26 → 3SUR 08:54 → OR 06-06 17:29
PROVIDERS: ATTEND Surgery
DX: K21.0 Gastro-esophageal reflux disease with esophagitis (principal); Z83.79 Family history of other diseases of the digestive system; I48.2 Chronic atrial fibrillation; Z79.01 Long term (current) use of anticoagulants; R07.89 Other chest pain; J44.9 Chronic obstructive pulmonary disease, unspecified; E11.9 Type 2 diabetes mellitus without complications; Z79.84 Long term (current) use of oral hypoglycemic drugs; I10 Essential (primary) hypertension; E78.5 Hyperlipidemia, unspecified; G47.33 Obstructive sleep apnea (adult) (pediatric); Z99.89 Dependence on other enabling machines and devices; Z87.891 Personal history of nicotine dependence; N42.9 Disorder of prostate, unspecified; Z79.51 Long term (current) use of inhaled steroids; Z79.899 Other long term (current) drug therapy; Z88.8 Allergy status to other drugs, medicaments and biological substances
CPT/HCPCS: 93005; 97116; 97162; 80053 ×2; 83036; 85025 ×2; 85610 ×2; 85730; 74210; 43280; J2250; J0360; J1644; J2710; Q9967; J0690; J2405; J2001; J1650 ×2; J3010; J1170; J2370; J0330; J2704

== ENCOUNTER 2017-06-07 15:50 | Inpatient (IN) | payer MEDICARE ==
[2017-06-07] MEDS ORDERED: SODIUM CHLORIDE 0.9% 500 ML IV STA (16:26)
[2017-06-07] MEDS ORDERED: SODIUM CHLORIDE 0.9% 1,000 ML IV STA (16:26)
--- NOTE | 2017-06-07 16:30 | ED ---
Male Urogenital HPI - General Chief complaint: Urogenital Stated complaint: Male Time Seen by Provider: 06/07/17 16:19 Source: patient, RN notes reviewed Mode of arrival: wheelchair Limitations: no limitations - History of Present Illness Initial comments: This is a 68-year-old male who was just discharged yesterday after having a laparoscopic Edwin procedure done who states he's been having urinary frequency and urgency. He has been having incontinence. He probably had a catheterization done yesterday he's had decreased urine output. He is not eating and drinking. He did not take his medications this morning he is critically drinks fluids he'll have to urinating more. He was found upon arrival here to have a tachycardia likely atrial fibrillation. He denies any chest pain fevers chills nausea vomiting sweats any overt abdominal pain. - Related Data Home Medications Medication Instructions Recorded Confirmed Atorvastatin [Lipitor] 40 mg PO DAILY 04/28/17 06/07/17 Calcium Citrate 250 mg PO DAILY 04/28/17 06/07/17 Cetirizine HCl 10 mg PO DAILY 04/28/17 06/07/17 Cyanocobalamin [Vitamin B-12] 500 mcg PO DAILY 04/28/17 06/07/17 DULoxetine HCL [Cymbalta] 60 mg PO DAILY 04/28/17 06/07/17 Diltiazem HCl [Cartia Xt] 120 mg PO DAILY 04/28/17 06/07/17 Fluticasone Nasal [place] [Flonase 1 spray EA NOSTRIL BID 04/28/17 06/07/17 Nasal [place]] Folic Acid 0.5 mg PO DAILY 04/28/17 06/07/17 Hydrochlorothiazide 25 mg PO DAILY 04/28/17 06/07/17 Magnesium 200 mg PO DAILY 04/28/17 06/07/17 Omeprazole 20 mg PO DAILY 04/28/17 06/07/17 Pregabalin [Lyrica] 50 mg PO BID 04/28/17 06/07/17 Tamsulosin HCl [Flomax] 0.4 mg PO DAILY 04/28/17 06/07/17 Vit C/E/Zn/Coppr/Lutein/Zeaxan 1 cap PO BID 04/28/17 06/07/17 [Preservision Areds 2 Softgel] Warfarin [Coumadin] 5 mg PO WE 04/28/17 06/07/17 Warfarin [Coumadin] 7.5 mg PO SUMOTUTHFRSA 04/28/17 06/07/17 metFORMIN HCL [Glucophage] 500 mg PO W/BRKFST 04/28/17 06/07/17 traMADol HCL [Ultram] 50 mg PO BID 04/28/17 06/07/17 HYDROcodone/APAP 7.5-325MG [[place] 1 tab PO Q4H PRN 06/07/17 06/07/17 7.5] Previous Rx's Medication Instructions Recorded Docusate [Colace] 100 mg PO BID #20 capsule 06/06/17 Allergies Allergy/AdvReac Type Severity Reaction Status Date / Time lisinopril AdvReac Cough Verified 06/07/17 16:11 Review of Systems ROS Statement: Those systems with pertinent positive or pertinent negative responses have been documented in the HPI. ROS Other: All systems not noted in ROS Statement are negative. Past Medical History Past Medical History: Atrial Fibrillation, Cancer, COPD, Diabetes Mellitus, Eye Disorder, GERD/Reflux, Hyperlipidemia, Hypertension, Prostate Disorder, Sleep Apnea/CPAP/BIPAP Additional Past Medical History / Comment(s): skin cancer- squamous and pre- melanoma, macular degeneration, brain bleed- February 2016, back problems-uses walker , cane as needed. History of Any Multi-Drug Resistant Organisms: None Reported Past Surgical History: Back Surgery, Heart Catheterization, Hernia Repair, Joint Replacement, Orthopedic Surgery, Tonsillectomy Additional Past Surgical History / Comment(s): total rt knee replacement, reverse total rt shoulder, lt knee benign tumor removed external, internal. back surgery with laminectomy and fusion. stevie cataracts Past Anesthesia/Blood Transfusion Reactions: Family History of Problems w/ Anesthesia, Postoperative Nausea & Vomiting (PONV) Additional Past Anesthesia/Blood Transfusion Reaction / Comment(s): mother hx ponv Past Psychological History: No Psychological Hx Reported Smoking Status: Former smoker - Past Family History Mother Family Medical History: Cancer Additional Family Medical History / Comment(s): uterine cancer, pre-cancer colon had bowel resection Father Family Medical History: Cancer Additional Family Medical History / Comment(s): lymphoma General Exam - General Exam Comments Initial Comments: This is a well-developed well-nourished awake alert oriented 3 male Limitations: no limitations General appearance: alert, in no apparent distress Head exam: Present: atraumatic, normocephalic, normal inspection Eye exam: Present: normal appearance, PERRL, EOMI. Absent: scleral icterus, conjunctival injection, periorbital swelling ENT exam: Present: mucous membranes dry Neck exam: Present: normal inspection. Absent: tenderness, meningismus, lymphadenopathy Respiratory exam: Present: normal lung sounds bilaterally. Absent: respiratory distress, wheezes, rales, rhonchi, stridor Cardiovascular Exam: Present: tachycardia, irregular rhythm, normal heart sounds. Absent: systolic murmur, diastolic murmur, rubs, gallop, clicks GI/Abdominal exam: Present: soft, normal bowel sounds, other (Bladder fullness. No wound dehiscence). Absent: distended, tenderness, guarding, rebound, rigid Rectal exam: Present: deferred Extremities exam: Present: normal inspection, full ROM, normal capillary refill. Absent: tenderness, pedal edema, joint swelling, calf tenderness Back exam: Present: normal inspection Neurological exam: Present: alert, oriented X3, CN II-XII intact Psychiatric exam: Present: normal affect, normal mood Skin exam: Present: warm, dry, intact, normal color. Absent: rash Course Vital Signs 06/07/17 06/07/17 06/07/17 15:56 16:30 16:45 Temperature 97.8 F Pulse Rate 144 H 144 H 150 H Respiratory 18 18 18 Rate Blood Pressure 107/53 134/78 112/76 O2 Sat by Pulse 97 96 96 Oximetry 06/07/17 06/07/17 06/07/17 17:00 17:30 18:00 Temperature Pulse Rate 146 H 104 H 82 Respiratory 18 18 18 Rate Blood Pressure 107/77 108/67 108/68 O2 Sat by Pulse 95 96 98 Oximetry 06/07/17 06/07/17 18:30 19:00 Temperature Pulse Rate 82 80 Respiratory 18 18 Rate Blood Pressure 115/66 118/68 O2 Sat by Pulse 96 95 Oximetry - Reevaluation(s) Reevaluation #1: 06/07/17 19:33 Reevaluation patient reveals he does feel improved he did require Jacobs catheter for the urinary retention. His atrial fibrillation has improved with IV Cardizem. Medical Decision Making - Medical Decision Making I did discuss findings with the patient family and with Dr. Soto and facial be admitted he is subtherapeutic on his Coumadin he'll be placed on Lovenox. - Lab Data Result diagrams: 06/07/17 16:23 06/07/17 16:23 Lab Results 06/07/17 06/07/17 06/07/17 Range/Units 16:23 16:23 16:23 WBC 7.4 (3.8-10.6) k/uL RBC 4.76 (4.30-5.90) m/uL Hgb 14.7 (13.0-17.5) gm/dL Hct 41.0 (39.0-53.0) % MCV 86.2 (80.0-100.0) fL MCH 30.9 (25.0-35.0) pg MCHC 35.8 (31.0-37.0) g/dL RDW 13.5 (11.5-15.5) % Plt Count 263 (150-450) k/uL Neutrophils % 68 % Lymphocytes % 18 % Monocytes % 9 % Eosinophils % 2 % Basophils % 0 % Neutrophils # 5.0 (1.3-7.7) k/uL Lymphocytes # 1.3 (1.0-4.8) k/uL Monocytes # 0.7 (0-1.0) k/uL Eosinophils # 0.1 (0-0.7) k/uL Basophils # 0.0 (0-0.2) k/uL PT (9.0-12.0) sec INR (<1.2) APTT (22.0-30.0) sec Sodium 136 L (137-145) mmol/L Potassium 3.8 (3.5-5.1) mmol/L Chloride 99 (98-107) mmol/L Carbon Dioxide 25 (22-30) mmol/L Anion Gap 12 mmol/L BUN 13 (9-20) mg/dL Creatinine 0.79 (0.66-1.25) mg/dL Est GFR (MDRD) Af Amer >60 (>60 ml/min/1.73 sqM) Est GFR (MDRD) Non-Af >60 (>60 ml/min/1.73 sqM) Glucose 165 H (74-99) mg/dL Calcium 9.6 (8.4-10.2) mg/dL Magnesium 1.4 L (1.6-2.3) mg/dL Total Bilirubin 1.1 (0.2-1.3) mg/dL AST 37 (17-59) U/L ALT 38 (21-72) U/L Alkaline Phosphatase 120 (38-126) U/L Total Creatine Kinase 409 H (55-170) U/L CK-MB (CK-2) 6.4 H* (0.0-2.4) ng/mL CK-MB (CK-2) Rel Index 1.6 Troponin I 0.038 H* (0.000-0.034) ng/mL Total Protein 7.1 (6.3-8.2) g/dL Albumin 4.4 (3.5-5.0) g/dL Urine Color Urine Appearance (Clear) Urine pH (5.0-8.0) Ur Specific [place] (1.001-1.035) Urine Protein (Negative) Urine Glucose (UA) (Negative) Urine Ketones (Negative) Urine Blood (Negative) Urine Nitrite (Negative) Urine Bilirubin (Negative) Urine Urobilinogen (<2.0) mg/dL Ur Leukocyte Esterase (Negative) Urine WBC (0-5) /hpf Urine Mucus (None) /hpf 06/07/17 06/07/17 Range/Units 16:23 17:00 WBC (3.8-10.6) k/uL RBC (4.30-5.90) m/uL Hgb (13.0-17.5) gm/dL Hct (39.0-53.0) % MCV (80.0-100.0) fL MCH (25.0-35.0) pg MCHC (31.0-37.0) g/dL RDW (11.5-15.5) % Plt Count (150-450) k/uL Neutrophils % % Lymphocytes % % Monocytes % % Eosinophils % % Basophils % % Neutrophils # (1.3-7.7) k/uL Lymphocytes # (1.0-4.8) k/uL Monocytes # (0-1.0) k/uL Eosinophils # (0-0.7) k/uL Basophils # (0-0.2) k/uL PT 11.3 (9.0-12.0) sec INR 1.1 (<1.2) APTT 24.4 (22.0-30.0) sec Sodium (137-145) mmol/L Potassium (3.5-5.1) mmol/L Chloride (98-107) mmol/L Carbon Dioxide (22-30) mmol/L Anion Gap mmol/L BUN (9-20) mg/dL Creatinine (0.66-1.25) mg/dL Est GFR (MDRD) Af Amer (>60 ml/min/1.73 sqM) Est GFR (MDRD) Non-Af (>60 ml/min/1.73 sqM) Glucose (74-99) mg/dL Calcium (8.4-10.2) mg/dL Magnesium (1.6-2.3) mg/dL Total Bilirubin (0.2-1.3) mg/dL AST (17-59) U/L ALT (21-72) U/L Alkaline Phosphatase (38-126) U/L Total Creatine Kinase (55-170) U/L CK-MB (CK-2) (0.0-2.4) ng/mL CK-MB (CK-2) Rel Index Troponin I (0.000-0.034) ng/mL Total Protein (6.3-8.2) g/dL Albumin (3.5-5.0) g/dL Urine Color Yellow Urine Appearance Clear (Clear) Urine pH 7.5 (5.0-8.0) Ur Specific [place] 1.008 (1.001-1.035) Urine Protein 2+ H (Negative) Urine Glucose (UA) Negative (Negative) Urine Ketones 1+ H (Negative) Urine Blood Negative (Negative) Urine Nitrite Negative (Negative) Urine Bilirubin Negative (Negative) Urine Urobilinogen <2.0 (<2.0) mg/dL Ur Leukocyte Esterase Negative (Negative) Urine WBC 2 (0-5) /hpf Urine Mucus Rare H (None) /hpf - EKG Data -: EKG Interpreted by Me (Atrial fibrillation rate of 150 QRS 88 QT since QTC of 350/553 old inferior) - Radiology Data Radiology results: report reviewed (I did review the imaging and report or is evidence of atelectasis ), image reviewed Critical Care Time Critical Care Time: Yes Critical Care Time: 32 minutes of critical care time which includes initial presentation with history physical labs x-rays review of old charting reevaluation patient response to therapy discuss with the patient family regarding findings discussed with the ability physician and admission orders and documentation of the above Disposition Clinical Impression: Rapid atrial fibrillation, Acute urinary retention, Elevated troponin, Hypomagnesemia syndrome Disposition: ADMITTED IP TO THIS [facility] Condition: Stable Referrals: Divya Soni DO [Primary Care Provider] - 1-2 days Decision Time: 18:30
[2017-06-07 16:47] LABS: Basophils % (A) 0 %; CH 29.8; CHCM 34.7; Eosinophils # (A) 0.1 k/uL (0-0.7); Eosinophils % (A) 2 %; HGB 14.7 gm/dL (13.0-17.5); Luc # (Auto) 0.22; Luc % (Auto) 3; Lymphocytes # (A) 1.3 k/uL (1.0-4.8); Lymphocytes % (A) 18 %; MCH 30.9 pg (25.0-35.0); MCHC 35.8 g/dL (31.0-37.0); MCV 86.2 fL (80.0-100.0); Mean Platelet Volume 8.3; Monocytes # (A) 0.7 k/uL (0-1.0); Monocytes % (A) 9 %; Neutrophils % (A) 68 %; RBC 4.76 m/uL (4.30-5.90); RDW 13.5 % (11.5-15.5); WBC 7.4 k/uL (3.8-10.6); WBC (Perox) 7.23
[2017-06-07 17:03] LABS: INR 1.1 (<1.2); Partial Thromboplastin Time 24.4 sec (22.0-30.0); Prothrombin Time 11.3 sec (9.0-12.0)
[2017-06-07 17:04] LABS: ALT 38 U/L (21-72); AST 37 U/L (17-59); Alkaline Phosphatase 120 U/L (38-126); Anion Gap 12 mmol/L; Blood Urea Nitrogen 13 mg/dL (9-20); Calcium 9.6 mg/dL (8.4-10.2); Carbon Dioxide 25 mmol/L (22-30); Chloride 99 mmol/L (98-107); Glucose 165 mg/dL (74-99); Magnesium 1.4 mg/dL (1.6-2.3); Non-African American GFR(MDRD) >60 (>60 ml/min/1.73 sqM); Potassium 3.8 mmol/L (3.5-5.1); Sodium 136 mmol/L (137-145); Total Bilirubin 1.1 mg/dL (0.2-1.3); Total Protein 7.1 g/dL (6.3-8.2)
[2017-06-07 17:10] LABS: Appearance,Urine Clear (Clear); Bilirubin,Urine Negative (Negative); Glucose,Urine (UA) Negative (Negative); Ketones,Urine 1+ (Negative); Leukocyte Esterase,Urine Negative (Negative); Mucus,Urine Rare /hpf; Nitrite,Urine Negative (Negative); PH, Urine 7.5 (5.0-8.0); Particle Count 1132; Protein,Urine 2+ (Negative); Specific Gravity,Urine 1.008 (1.001-1.035); UA Billing (MACRO vs. MICRO) MICRO; Urobilinogen,Urine <2.0 mg/dL (<2.0); WBC,Urine 2 /hpf (0-5)
[2017-06-07] MEDS: DILTIAZEM 125 MG in SODIUM CHLORIDE 0.9% 100 ML IV ONE (17:11)
[2017-06-07 17:29] LABS: Creatine Kinase MB 6.4 ng/mL (0.0-2.4); Troponin I 0.038 ng/mL (0.000-0.034)
--- NOTE | 2017-06-07 18:41 | XR ---
EXAMINATION TYPE: XR chest 2V DATE OF EXAM: 06/07/2017 COMPARISON: None HISTORY: 76-year-old male with dysrhythmia TECHNIQUE: AP and lateral views FINDINGS: The heart is upper limits of normal in size. Atherosclerotic arch calcifications with elongation/ecta eh of the thoracic aorta. Diffuse interstitial prominence has a chronic appearance. There is some pa tchy opacity seen along the right hemidiaphragm on the lateral view. Reverse for a total shoulder art hroplasty. No pleural effusion. IMPRESSION: Chronic appearing changes. There is some patchy opacity along the right hemidiaphragm on the lateral view that probably represents atelectasis. Correlate with patient's symptoms to exclude early infiltr ate.
[2017-06-07] MEDS ORDERED: NALOXONE 0.4 MG/ML 1 ML VIAL IV PRN (19:39)
[2017-06-07] MEDS ORDERED: MAGNESIUM SULFATE-D5W PMX 1 GM in DEXTROSE/WATER 1 100ML.BAG IVPB ONE (19:40)
[2017-06-07] MEDS ORDERED: HYDROcodone/APAP 7.5-325MG 1 EACH TAB PO PRN (19:41)
[2017-06-07] MEDS: ENOXAPARIN 80 MG/0.8 ML SYRINGE SQ SCH (22:14)
[2017-06-07] MEDS: DOCUSATE 100 MG CAP PO SCH (22:14)
[2017-06-07] MEDS: WARFARIN 7.5 MG TAB PO SCH (22:14)
[2017-06-07] MEDS: traMADol 50 MG TAB PO SCH (22:15)
[2017-06-07] MEDS: FLUTICASONE 50MCG/SPRAY NASAL 16GM EA NOSTRIL SCH (22:16)
[2017-06-07] MEDS: PREGABALIN 50 MG CAP PO SCH (22:16)
[2017-06-07 22:28] LABS: Glucose,Whole Blood 132 mg/dL (75-99)
[2017-06-07] MEDS: INSULIN LISPRO (humaLOG) 300 UNIT/3 ML VIAL SQ SCH (22:33)
[2017-06-07] MEDS: SODIUM CHLORIDE 0.9% 1,000 ML IV SCH (23:45)
[2017-06-08 02:50] VITALS: BMI 24.0
[2017-06-08 06:32] LABS: Glucose,Whole Blood 102 mg/dL (75-99)
[2017-06-08] MEDS: INSULIN LISPRO (humaLOG) 300 UNIT/3 ML VIAL SQ SCH ×4 (06:40→22:03)
[2017-06-08] MEDS: PANTOPRAZOLE 40 MG TABLET PO SCH (06:58)
[2017-06-08] MEDS: metFORMIN 500 MG TAB PO SCH (06:58)
[2017-06-08] MEDS: ENOXAPARIN 80 MG/0.8 ML SYRINGE SQ SCH ×2 (08:23→22:03)
[2017-06-08] MEDS: CALCIUM CARBONATE 500 MG CHEWABLE PO SCH (08:24)
[2017-06-08] MEDS: CYANOCOBALAMIN 500 MCG TAB PO SCH (08:24)
[2017-06-08] MEDS: FOLIC ACID 1 MG TAB PO SCH (08:24)
[2017-06-08] MEDS: FLUTICASONE 50MCG/SPRAY NASAL 16GM EA NOSTRIL SCH ×2 (08:24→22:02)
[2017-06-08] MEDS: DOCUSATE 100 MG CAP PO SCH ×2 (08:25→22:02)
[2017-06-08] MEDS: HYDROCHLOROTHIAZIDE 25 MG TAB PO SCH (08:25)
[2017-06-08] MEDS: DULoxetine HCL 60 MG CAPSULE.DR PO SCH (08:25)
[2017-06-08] MEDS: MAGNESIUM OXIDE 400 MG TAB PO SCH (08:25)
[2017-06-08] MEDS: ATORVASTATIN 40 MG TAB PO SCH (08:25)
[2017-06-08] MEDS: LORATADINE 10 MG TAB PO SCH (08:26)
[2017-06-08] MEDS ORDERED: TAMSULOSIN 0.4 MG CAP.ER.24H PO SCH (09:00)
[2017-06-08] MEDS: traMADol 50 MG TAB PO SCH ×2 (10:27→22:01)
[2017-06-08] MEDS: PREGABALIN 50 MG CAP PO SCH ×2 (10:27→22:01)
[2017-06-08] MEDS: DILTIAZEM 125 MG in SODIUM CHLORIDE 0.9% 100 ML IV ONE (10:27)
--- NOTE | 2017-06-08 11:57 | P.HPIM ---
History of Present Illness H&P Date: 06/08/17 Taye August is a 68-year-old male who was recently discharged after having a laparoscopic Edwin procedure. Patient states he has been having urinary frequency and urgency. He has been having incontinence. He probably had a catheterization done yesterday he's had decreased urine output. He is not eating and drinking. Patient was evaluated in the emergency room and had evidence of urinary retention he had a Jacobs catheter inserted and had more than 1 L of urine out of his bladder . Patient was also found to have atrial fibrillation with rapid ventricular response he was started on IV Cardizem and was admitted to telemetry floor. Past Medical History Past Medical History: Atrial Fibrillation, Cancer, COPD, Diabetes Mellitus, Eye Disorder, GERD/Reflux, Hyperlipidemia, Hypertension, Prostate Disorder, Sleep Apnea/CPAP/BIPAP Additional Past Medical History / Comment(s): skin cancer- squamous and pre- melanoma, macular degeneration, brain bleed- February 2016, back problems-uses walker , cane as needed. History of Any Multi-Drug Resistant Organisms: None Reported Past Surgical History: Back Surgery, Heart Catheterization, Hernia Repair, Joint Replacement, Orthopedic Surgery, Tonsillectomy Additional Past Surgical History / Comment(s): total rt knee replacement, reverse total rt shoulder, lt knee benign tumor removed external, internal. back surgery with laminectomy and fusion. stevie cataracts Past Anesthesia/Blood Transfusion Reactions: Family History of Problems w/ Anesthesia, Postoperative Nausea & Vomiting (PONV) Additional Past Anesthesia/Blood Transfusion Reaction / Comment(s): mother hx ponv Past Psychological History: No Psychological Hx Reported Smoking Status: Former smoker Past Alcohol Use History: Daily Additional Past Alcohol Use History / Comment(s): smoked 50 years 1ppd quit 2004 Past Drug Use History: None Reported - Past Family History Mother Family Medical History: Cancer Additional Family Medical History / Comment(s): uterine cancer, pre-cancer colon had bowel resection Father Family Medical History: Cancer Additional Family Medical History / Comment(s): lymphoma Medications and Allergies Home Medications Medication Instructions Recorded Confirmed Type Atorvastatin [Lipitor] 40 mg PO DAILY 04/28/17 06/07/17 History Calcium Citrate 250 mg PO DAILY 04/28/17 06/07/17 History Cetirizine HCl 10 mg PO DAILY 04/28/17 06/07/17 History Cyanocobalamin [Vitamin B-12] 500 mcg PO DAILY 04/28/17 06/07/17 History DULoxetine HCL [Cymbalta] 60 mg PO DAILY 04/28/17 06/07/17 History Diltiazem HCl [Cartia Xt] 120 mg PO DAILY 04/28/17 06/07/17 History Fluticasone Nasal [place] [Flonase 1 spray EA NOSTRIL BID 04/28/17 06/07/17 History Nasal [place]] Folic Acid 0.5 mg PO DAILY 04/28/17 06/07/17 History Hydrochlorothiazide 25 mg PO DAILY 04/28/17 06/07/17 History Magnesium 200 mg PO DAILY 04/28/17 06/07/17 History Omeprazole 20 mg PO DAILY 04/28/17 06/07/17 History Pregabalin [Lyrica] 50 mg PO BID 04/28/17 06/07/17 History Tamsulosin HCl [Flomax] 0.4 mg PO DAILY 04/28/17 06/07/17 History Vit C/E/Zn/Coppr/Lutein/Zeaxan 1 cap PO BID 04/28/17 06/07/17 History [Preservision Areds 2 Softgel] Warfarin [Coumadin] 5 mg PO WE 04/28/17 06/07/17 History Warfarin [Coumadin] 7.5 mg PO SUMOTUTHFRSA 04/28/17 06/07/17 History metFORMIN HCL [Glucophage] 500 mg PO W/BRKFST 04/28/17 06/07/17 History traMADol HCL [Ultram] 50 mg PO BID 04/28/17 06/07/17 History HYDROcodone/APAP 7.5-325MG [[place] 1 tab PO Q4H PRN 06/07/17 06/07/17 History 7.5] Allergies Allergy/AdvReac Type Severity Reaction Status Date / Time lisinopril AdvReac Cough Verified 06/07/17 16:11 Physical Exam Vitals: Vital Signs Temp Pulse Pulse Resp BP BP Pulse Ox 06/08/17 08:00 97.2 F L 70 16 140/86 95 06/08/17 03:59 74 16 06/08/17 03:58 97.0 F L 74 16 140/71 98 06/08/17 00:00 97.0 F L 83 16 145/81 99 06/07/17 20:10 98.4 F 87 18 151/77 98 06/07/17 20:03 97.0 F L 83 18 143/80 100 06/07/17 19:00 80 18 118/68 95 06/07/17 18:30 82 18 115/66 96 06/07/17 18:00 82 18 108/68 98 06/07/17 17:30 104 H 18 108/67 96 06/07/17 17:00 146 H 18 107/77 95 06/07/17 16:45 150 H 18 112/76 96 06/07/17 16:30 144 H 18 134/78 96 06/07/17 15:56 97.8 F 144 H 18 107/53 97 Intake and Output 06/07/17 06/08/17 06/08/17 22:59 06:59 14:59 Intake Total 350 86.333 Output Total 930 450 Balance -580 -450 86.333 Intake: IV 150 Diltiazem 125 mg In 10 Sodium Chloride 0.9% 100 ml @ 5 MG/HR 5 mls/hr IV .Q24H ONE Rx#:[id number] Magnesium Sulfate-D5w Pmx 100 1 gm In Dextrose/Water 1 100ml.bag @ 100 mls/hr IVPB ONCE ONE Rx#: [id number] Sodium Chloride 0.9% 1, 40 000 ml @ 20 mls/hr IV . Q24H COUNT INCLUDES THE [facility] Rx#:[id number] Amount of Fluid Infused ( 200 ml) Intake, IV Titration 86.333 Amount Diltiazem 125 mg In 86.333 Sodium Chloride 0.9% 100 ml @ 5 MG/HR 5 mls/hr IV .Q24H ONE Rx#:[id number] Output: Urine 930 450 Uretheral (Jacobs) 930 Other: Voiding Method Diaper Indwelling Catheter Indwelling Catheter Weight 71.6 kg 72 kg In general patient is alert and oriented 3 in no apparent distress HEENT head normocephalic and atraumatic Neck is supple no JVD no goiter no lymphadenopathy no carotid bruit Chest examination reveals a few scattered crackles no wheezing Cardiac exam reveals regular heart sounds S1 and S2 no gallops no murmurs Abdomen is soft nontender no organomegaly with normal bowel sounds Extremity exam reveals no edema no cyanosis or clubbing Results CBC & Chem 7: 06/07/17 16:23 06/07/17 16:23 Labs: Abnormal Lab Results - Last 24 Hours (Table) 06/07/17 06/07/17 06/07/17 Range/Units 16:23 16:23 17:00 Sodium 136 L (137-145) mmol/L Glucose 165 H (74-99) mg/dL POC Glucose (mg/dL) (75-99) mg/dL Magnesium 1.4 L (1.6-2.3) mg/dL Total Creatine Kinase 409 H (55-170) U/L CK-MB (CK-2) 6.4 H* (0.0-2.4) ng/mL Troponin I 0.038 H* (0.000-0.034) ng/mL Urine Protein 2+ H (Negative) Urine Ketones 1+ H (Negative) Urine Mucus Rare H (None) /hpf 06/07/17 06/08/17 Range/Units 22:27 06:19 Sodium (137-145) mmol/L Glucose (74-99) mg/dL POC Glucose (mg/dL) 132 H 102 H (75-99) mg/dL Magnesium (1.6-2.3) mg/dL Total Creatine Kinase (55-170) U/L CK-MB (CK-2) (0.0-2.4) ng/mL Troponin I (0.000-0.034) ng/mL Urine Protein (Negative) Urine Ketones (Negative) Urine Mucus (None) /hpf Assessment and Plan Plan: Assessment and plan #1 urinary retention, Jacobs catheter inserted and more than 1 L was emptied bladder. At this time continue was Jacobs catheter, Flomax dose was increased to 0.4 mg twice daily Urology consult requested #2 atrial fibrillation with rapid ventricular response currently maintained on IV Cardizem drip continue #3 underlying history of hypertension #4 underlying history of hyperlipidemia #5 recent laparoscopic Edwin fundoplication without complication At this time medication and labs were reviewed, dose of Flomax was increased, otherwise continue with current management Will follow closely
[2017-06-08 12:16] LABS: Glucose,Whole Blood 121 mg/dL (75-99)
[2017-06-08] MEDS: DILTIAZEM CD 120 MG CAP.ER.24H PO SCH (16:45)
[2017-06-08 17:04] LABS: Glucose,Whole Blood 105 mg/dL (75-99)
[2017-06-08] MEDS: WARFARIN 7.5 MG TAB PO SCH (17:19)
[2017-06-08 20:44] LABS: Hemoglobin A1C 6.6 % (4.2-6.1)
[2017-06-08] MEDS: TAMSULOSIN 0.4 MG CAP.ER.24H PO SCH (22:03)
[2017-06-08 22:11] LABS: Glucose,Whole Blood 138 mg/dL (75-99)
[2017-06-09 06:12] LABS: Glucose,Whole Blood 100 mg/dL (75-99)
[2017-06-09 06:18] LABS: Basophils % (A) 1 %; CH 30.8; Eosinophils # (A) 0.3 k/uL (0-0.7); Eosinophils % (A) 4 %; HCT 37.4 % (39.0-53.0); HGB 12.2 gm/dL (13.0-17.5); Luc # (Auto) 0.25; Luc % (Auto) 4; Lymphocytes # (A) 2.4 k/uL (1.0-4.8); Lymphocytes % (A) 37 %; MCH 29.7 pg (25.0-35.0); MCHC 32.6 g/dL (31.0-37.0); Mean Platelet Volume 8.8; Monocytes # (A) 0.5 k/uL (0-1.0); Monocytes % (A) 7 %; Neutrophils # (A) 3.1 k/uL (1.3-7.7); Neutrophils % (A) 47 %; RDW 14.5 % (11.5-15.5); WBC 6.5 k/uL (3.8-10.6); WBC (Perox) 6.34
[2017-06-09 06:22] LABS: MCV 91.2 fL (80.0-100.0)
[2017-06-09] MEDS: INSULIN LISPRO (humaLOG) 300 UNIT/3 ML VIAL SQ SCH ×4 (06:35→21:38)
[2017-06-09 06:36] LABS: ALT 35 U/L (21-72); AST 22 U/L (17-59); Alkaline Phosphatase 94 U/L (38-126); Anion Gap 8 mmol/L; Blood Urea Nitrogen 15 mg/dL (9-20); Carbon Dioxide 27 mmol/L (22-30); Chloride 102 mmol/L (98-107); Glucose 88 mg/dL (74-99); Non-African American GFR(MDRD) >60 (>60 ml/min/1.73 sqM); Potassium 3.7 mmol/L (3.5-5.1); Sodium 137 mmol/L (137-145); Total Bilirubin 0.6 mg/dL (0.2-1.3); Total Protein 5.5 g/dL (6.3-8.2)
[2017-06-09] MEDS: metFORMIN 500 MG TAB PO SCH (06:55)
[2017-06-09] MEDS: PANTOPRAZOLE 40 MG TABLET PO SCH (06:55)
[2017-06-09] MEDS: DULoxetine HCL 60 MG CAPSULE.DR PO SCH (09:46)
[2017-06-09] MEDS: CYANOCOBALAMIN 500 MCG TAB PO SCH (09:46)
[2017-06-09] MEDS: DOCUSATE 100 MG CAP PO SCH ×2 (09:46→21:37)
[2017-06-09] MEDS: MAGNESIUM OXIDE 400 MG TAB PO SCH (09:46)
[2017-06-09] MEDS: CALCIUM CARBONATE 500 MG CHEWABLE PO SCH (09:46)
[2017-06-09] MEDS: TAMSULOSIN 0.4 MG CAP.ER.24H PO SCH ×2 (09:46→21:37)
[2017-06-09] MEDS: ATORVASTATIN 40 MG TAB PO SCH (09:46)
[2017-06-09] MEDS: HYDROCHLOROTHIAZIDE 25 MG TAB PO SCH (09:46)
[2017-06-09] MEDS: FLUTICASONE 50MCG/SPRAY NASAL 16GM EA NOSTRIL SCH ×2 (09:47→21:37)
[2017-06-09] MEDS: ENOXAPARIN 80 MG/0.8 ML SYRINGE SQ SCH ×2 (09:48→22:09)
--- NOTE | 2017-06-09 10:07 | P.CRDCN ---
History of Present Illness Consult date: 06/09/17 Requesting physician: Milan Soto Consult reason: atrial fibrillation Chief complaint: Urinary frequency and urgency History of present illness: This is a 76-year-old gentleman who follows with Dr. Regalado in the office. He has a known history of hypertension, diabetes, hyperlipidemia, sleep apnea, COPD, prior TIA, chronic persistent atrial fibrillation. He also states that he had a heart catheterization several years ago revealed only mild coronary artery disease at that time. Patient was recently in the hospital, at which time he underwent a laparoscopic Edwin procedure by Dr. Kline on June 05, he was discharged from there and states that since then he's been having to urinate frequently, and very little comes out each time. He also states that he's been incontinent of urine and a separate having a decrease in appetite. For these reasons he came to the emergency room. EKG on presentation here showed atrial fibrillation with a rapid ventricular response with occasional PVCs. Blood pressure on presentation here 108/50, heart rate in the 150 range, 97% pulse ox on room air. WBC 7.4 on admission hemoglobin 14.7, hemoglobin 12.2 this morning. Potassium 3.7, BUN 15, creatinine 0.8. Magnesium level on admission 1.4, 1.5 this morning. Troponin 0.038. At the time of my examination, patient is sitting up in the chair, he does have a Jacobs catheter in place and is draining adequate amounts of urine. Denies any point having any chest discomfort or difficulty breathing. Past Medical History Past Medical History: Atrial Fibrillation, Cancer, COPD, Diabetes Mellitus, Eye Disorder, GERD/Reflux, Hyperlipidemia, Hypertension, Prostate Disorder, Sleep Apnea/CPAP/BIPAP Additional Past Medical History / Comment(s): skin cancer- squamous and pre- melanoma, macular degeneration, brain bleed- February 2016, back problems-uses walker , cane as needed. History of Any Multi-Drug Resistant Organisms: None Reported Past Surgical History: Back Surgery, Heart Catheterization, Hernia Repair, Joint Replacement, Orthopedic Surgery, Tonsillectomy Additional Past Surgical History / Comment(s): total rt knee replacement, reverse total rt shoulder, lt knee benign tumor removed external, internal. back surgery with laminectomy and fusion. stevie cataracts Past Anesthesia/Blood Transfusion Reactions: Family History of Problems w/ Anesthesia, Postoperative Nausea & Vomiting (PONV) Additional Past Anesthesia/Blood Transfusion Reaction / Comment(s): mother hx ponv Past Psychological History: No Psychological Hx Reported Smoking Status: Former smoker Past Alcohol Use History: Daily Additional Past Alcohol Use History / Comment(s): smoked 50 years 1ppd quit 2004 Past Drug Use History: None Reported - Past Family History Mother Family Medical History: Cancer Additional Family Medical History / Comment(s): uterine cancer, pre-cancer colon had bowel resection Father Family Medical History: Cancer Additional Family Medical History / Comment(s): lymphoma Medications and Allergies Home Medications Medication Instructions Recorded Confirmed Type Atorvastatin [Lipitor] 40 mg PO DAILY 04/28/17 06/07/17 History Calcium Citrate 250 mg PO DAILY 04/28/17 06/07/17 History Cetirizine HCl 10 mg PO DAILY 04/28/17 06/07/17 History Cyanocobalamin [Vitamin B-12] 500 mcg PO DAILY 04/28/17 06/07/17 History DULoxetine HCL [Cymbalta] 60 mg PO DAILY 04/28/17 06/07/17 History Diltiazem HCl [Cartia Xt] 120 mg PO DAILY 04/28/17 06/07/17 History Fluticasone Nasal [place] [Flonase 1 spray EA NOSTRIL BID 04/28/17 06/07/17 History Nasal [place]] Folic Acid 0.5 mg PO DAILY 04/28/17 06/07/17 History Hydrochlorothiazide 25 mg PO DAILY 04/28/17 06/07/17 History Magnesium 200 mg PO DAILY 04/28/17 06/07/17 History Omeprazole 20 mg PO DAILY 04/28/17 06/07/17 History Pregabalin [Lyrica] 50 mg PO BID 04/28/17 06/07/17 History Tamsulosin HCl [Flomax] 0.4 mg PO DAILY 04/28/17 06/07/17 History Vit C/E/Zn/Coppr/Lutein/Zeaxan 1 cap PO BID 04/28/17 06/07/17 History [Preservision Areds 2 Softgel] Warfarin [Coumadin] 5 mg PO WE 04/28/17 06/07/17 History Warfarin [Coumadin] 7.5 mg PO SUMOTUTHFRSA 04/28/17 06/07/17 History metFORMIN HCL [Glucophage] 500 mg PO W/BRKFST 04/28/17 06/07/17 History traMADol HCL [Ultram] 50 mg PO BID 04/28/17 06/07/17 History HYDROcodone/APAP 7.5-325MG [Fitz[place]illiam 1 tab PO Q4H PRN 06/07/17 06/07/17 History 7.5] Allergies Allergy/AdvReac Type Severity Reaction Status Date / Time lisinopril AdvReac Cough Verified 06/07/17 16:11 Physical Exam Vitals: Vital Signs Temp Pulse Resp BP Pulse Ox 06/09/17 04:00 97.2 F L 74 16 118/62 93 L 06/08/17 23:40 75 16 06/08/17 23:39 98.7 F 75 16 147/73 95 06/08/17 20:00 81 16 131/71 95 06/08/17 15:50 97.8 F 78 16 135/68 97 06/08/17 15:48 83 16 06/08/17 12:00 97.8 F 81 16 137/61 97 Intake and Output 06/08/17 06/09/17 06/09/17 22:59 06:59 14:59 Intake Total 160 Output Total 500 1000 Balance -340 -1000 Intake: IV 160 Sodium Chloride 0.9% 1, 160 000 ml @ 20 mls/hr IV . Q24H [facility] Rx#:[id number] Output: Urine 500 1000 Other: Voiding Method Indwelling Catheter Indwelling Catheter Weight 72.7 kg PHYSICAL EXAMINATION: HEENT: Head is atraumatic, normocephalic. Pupils equal, round. Neck is supple. There is no elevated jugular venous pressure. HEART EXAMINATION: S1 and S2 irregularly irregular a systolic murmur is heard. CHEST EXAMINATION: Lungs are clear to auscultation and precussion. No chest wall tenderness is noted on palpation or with deep breathing. ABDOMEN: Soft, nontender. Bowel sounds are heard. No organomegaly noted. EXTREMITIES: 2+ peripheral pulses with no evidence of peripheral edema and no calf tenderness noted. NEUROLOGIC [patient is awake, alert and oriented -3.] . Results 06/09/17 05:23 06/09/17 05:23 Cardiac Enzymes 06/09/17 Range/Units 05:23 AST 22 (17-59) U/L CBC 06/09/17 Range/Units 05:23 WBC 6.5 (3.8-10.6) k/uL RBC 4.10 L (4.30-5.90) m/uL Hgb 12.2 L (13.0-17.5) gm/dL Hct 37.4 L (39.0-53.0) % Plt Count 202 (150-450) k/uL Comprehensive Metabolic Panel 06/09/17 Range/Units 05:23 Sodium 137 (137-145) mmol/L Potassium 3.7 (3.5-5.1) mmol/L Chloride 102 (98-107) mmol/L Carbon Dioxide 27 (22-30) mmol/L BUN 15 (9-20) mg/dL Creatinine 0.80 (0.66-1.25) mg/dL Glucose 88 (74-99) mg/dL Calcium 9.0 (8.4-10.2) mg/dL AST 22 (17-59) U/L ALT 35 (21-72) U/L Alkaline Phosphatase 94 (38-126) U/L Total Protein 5.5 L (6.3-8.2) g/dL Albumin 3.2 L (3.5-5.0) g/dL Current Medications Generic Name Dose Route Start Last Admin Trade Name Freq PRN Reason Stop Dose Admin Hydrocodone Bitart/Acetaminophen 1 each 06/07/17 19:41 Fitzwilliam 7.5-325 PO Q4H PRN Pain Atorvastatin Calcium 40 mg 06/08/17 09:00 06/08/17 08:25 Lipitor PO 40 mg DAILY MANOJ Administration Calcium Carbonate/Glycine 250 mg 06/08/17 09:00 06/08/17 08:24 Tums PO 250 mg DAILY MANOJ Administration Cyanocobalamin 500 mcg 06/08/17 09:00 06/08/17 08:24 Vitamin B-12 PO 500 mcg DAILY MANOJ Administration Diltiazem HCl 120 mg 06/08/17 16:00 06/08/17 16:45 Cardizem Cd PO 120 mg DAILY MANOJ Administration Docusate Sodium 100 mg 06/07/17 21:00 06/08/17 22:02 Colace PO 100 mg BID MANOJ Administration Duloxetine HCl 60 mg 06/08/17 09:00 06/08/17 08:25 Cymbalta PO 60 mg DAILY MANOJ Administration Enoxaparin Sodium 70 mg 06/07/17 21:00 06/08/17 22:03 Lovenox SQ 70 mg BID MANOJ Administration Fluticasone Propionate 1 spray 06/07/17 21:00 06/08/17 22:02 Flonase Nasal [place] EA NOSTRIL 1 spray BID MANOJ Administration Folic Acid 0.5 mg 06/08/17 09:00 06/08/17 08:24 Folic Acid PO 0.5 mg DAILY MANOJ Administration Hydrochlorothiazide 25 mg 06/08/17 09:00 06/08/17 08:25 Hydrodiuril PO 25 mg DAILY MANOJ Administration Sodium Chloride 1,000 mls @ 20 mls/hr 06/07/17 19:45 06/07/17 23:45 Saline 0.9% IV 20 mls/hr .Q24H MANOJ Administration Insulin Human Lispro 0 unit 06/07/17 21:00 06/09/17 06:35 Humalog SQ Not Given ACHS [facility] Protocol Loratadine 10 mg 06/08/17 09:00 06/08/17 08:26 Claritin PO 10 mg DAILY MANOJ Administration Magnesium Oxide 200 mg 06/08/17 09:00 06/08/17 08:25 Mag-Ox PO 200 mg DAILY MANOJ Administration Metformin HCl 500 mg 06/08/17 07:30 06/09/17 06:55 Glucophage PO 500 mg W/BRKFST MANOJ Administration Naloxone HCl 0.2 mg 06/07/17 19:39 Narcan IV Q2M PRN Opioid Reversal Pantoprazole Sodium 40 mg 06/08/17 07:30 06/09/17 06:55 Protonix PO 40 mg AC-BRKFST MANOJ Administration Pregabalin 50 mg 06/07/17 21:00 06/08/17 22:01 Lyrica PO 50 mg BID MANOJ Administration Tamsulosin HCl 0.4 mg 06/08/17 21:00 06/08/17 22:03 Flomax PO 0.4 mg BID MANOJ Administration Tramadol HCl 50 mg 06/07/17 21:00 06/08/17 22:01 Ultram PO 50 mg BID MANOJ Administration Warfarin Sodium 7.5 mg 06/07/17 19:45 06/08/17 17:19 Coumadin PO 7.5 mg [id number] MANOJ Administration Warfarin Sodium 5 mg 06/11/17 18:00 Coumadin PO WE MANOJ Intake and Output 06/08/17 06/09/17 06/09/17 22:59 06:59 14:59 Intake Total 160 Output Total 500 1000 Balance -340 -1000 Intake: IV 160 Sodium Chloride 0.9% 1, 160 000 ml @ 20 mls/hr IV . Q24H [facility] Rx#:[id number] Output: Urine 500 1000 Other: Voiding Method Indwelling Catheter Indwelling Catheter Weight 72.7 kg 06/09/17 05:23 06/09/17 05:23 EKG Interpretations (text) EKG shows atrial fibrillation with a rapid ventricular response. Assessment and Plan Plan: Assessment and plan #1 symptoms of urinary retention and frequency. Patient did put out more than a 1 L when the Jacobs was inserted. Dose of Flomax was increased. #2 atrial fibrillation with rapid ventricular response in a patient with known chronic persistent atrial fibrillation. Patient does take Coumadin for anticoagulation however has held that for 5 days because of the Edwin procedure. #3 recent Edwin fundoplication procedure #4 hypertension Number 5 hyperlipidemia #6 diabetes #7 COPD #8 abnormal troponin, likely secondary to oxygen supply and demand mismatch. Patient denies having any chest discomfort. #9 hypomagnesemia Plan We will obtain an echocardiogram with Doppler study. We will also repeat to further troponin values. Obtain free T4 and TSH level. Patient is currently in a normal sinus rhythm, on by mouth Cardizem. He is currently on Lovenox , we will reinitiate the Coumadin. Place magnesium. Further recommendations to follow. DNP note has been reviewed, I agree with a documented findings and plan of care. Patient was seen and examined.
[2017-06-09] MEDS: SODIUM CHLORIDE 0.9% 1,000 ML IV SCH (10:32)
[2017-06-09] MEDS: FOLIC ACID 1 MG TAB PO SCH (10:36)
[2017-06-09] MEDS: traMADol 50 MG TAB PO SCH ×2 (10:36→21:37)
[2017-06-09] MEDS: PREGABALIN 50 MG CAP PO SCH ×2 (10:36→21:37)
[2017-06-09 10:49] LABS: INR 1.4 (<1.2); Prothrombin Time 13.6 sec (9.0-12.0)
--- NOTE | 2017-06-09 10:54 | P.PN ---
Subjective Taye August is a 68-year-old male who was recently discharged after having a laparoscopic Edwin procedure. Patient states he has been having urinary frequency and urgency. He has been having incontinence. He probably had a catheterization done yesterday he's had decreased urine output. He is not eating and drinking. Patient was evaluated in the emergency room and had evidence of urinary retention he had a Jacobs catheter inserted and had more than 1 L of urine out of his bladder . Patient was also found to have atrial fibrillation with rapid ventricular response he was started on IV Cardizem and was admitted to telemetry floor. 06/09/2017 patient has converted back to sinus rhythm. He is off Cardizem drip and has been restarted on Cardizem 120 mg by mouth daily. Cardiology is following. They've ordered thyroid studies. Patient has Jacobs catheter in place for urinary retention and awaiting urology consult. Patient denies any chest pain or shortness of breath. Denies any nausea or vomiting reports having a bowel movement and eating without difficulty. Denies any abdominal pain. Objective - Vital Signs Vital signs: Vital Signs Temp 97.2 F L 06/09/17 04:00 Pulse 74 06/09/17 04:00 Resp 16 06/09/17 04:00 BP 118/62 06/09/17 04:00 Pulse Ox 93 L 06/09/17 04:00 Intake & Output 06/08/17 06/09/17 06/09/17 18:59 06:59 18:59 Intake Total 326.333 160 Output Total 500 1000 Balance -173.667 -840 Weight 72.7 kg Intake: IV 160 Sodium Chloride 0.9% 1, 160 000 ml @ 20 mls/hr IV . Q24H [facility] Rx#:[id number] Intake, IV Titration 86.333 Amount Diltiazem 125 mg In 86.333 Sodium Chloride 0.9% 100 ml @ 5 MG/HR 5 mls/hr IV .Q24H [facility] Rx#:[id number] Oral 240 Output: Urine 500 1000 Other: Voiding Method Indwelling Catheter Indwelling Catheter - Exam Head normocephalic Neck supple Lungs clear to auscultation bilaterally no wheezing or crackles Heart regular rate and rhythm S1-S2, no rub or gallop Abdomen is soft nontender nondistended positive bowel sounds no hepatosplenomegaly Extremities no edema Neuro alert and orientated to 3 - Labs CBC & Chem 7: 06/09/17 05:23 06/09/17 05:23 Labs: Abnormal Lab Results - Last 24 Hours (Table) 06/07/17 06/08/17 06/08/17 Range/Units 16:23 11:57 16:57 RBC (4.30-5.90) m/uL Hgb (13.0-17.5) gm/dL Hct (39.0-53.0) % POC Glucose (mg/dL) 121 H 105 H (75-99) mg/dL Hemoglobin A1c 6.6 H (4.2-6.1) % Magnesium (1.6-2.3) mg/dL Total Protein (6.3-8.2) g/dL Albumin (3.5-5.0) g/dL 06/08/17 06/09/17 06/09/17 Range/Units 22:00 05:23 05:23 RBC 4.10 L (4.30-5.90) m/uL Hgb 12.2 L (13.0-17.5) gm/dL Hct 37.4 L (39.0-53.0) % POC Glucose (mg/dL) 138 H (75-99) mg/dL Hemoglobin A1c (4.2-6.1) % Magnesium (1.6-2.3) mg/dL Total Protein 5.5 L (6.3-8.2) g/dL Albumin 3.2 L (3.5-5.0) g/dL 06/09/17 06/09/17 Range/Units 05:23 06:10 RBC (4.30-5.90) m/uL Hgb (13.0-17.5) gm/dL Hct (39.0-53.0) % POC Glucose (mg/dL) 100 H (75-99) mg/dL Hemoglobin A1c (4.2-6.1) % Magnesium 1.5 L (1.6-2.3) mg/dL Total Protein (6.3-8.2) g/dL Albumin (3.5-5.0) g/dL Assessment and Plan Plan: #1 urinary retention, Jacobs catheter inserted and more than 1 L was emptied bladder. At this time continue was Jacobs catheter, Flomax dose was increased to 0.4 mg twice daily yesterday Urology consult requested #2 atrial fibrillation with rapid ventricular response with known chronic atrial fibrillation. Patient is converted back to sinus rhythm. He is off of the Cardizem drip and his been started on by mouth Cardizem. Cardiology following they've ordered echo and thyroid studies. Continue Coumadin and Lovenox #3 underlying history of hypertension #4 underlying history of hyperlipidemia #5 recent laparoscopic Edwin fundoplication without complication I performed an examination of the patient and discussed their management with the physician Adoption Manager. I have reviewed the Physician Adoption Manager's notes and agree with the documented findings and plan of care
[2017-06-09 12:24] LABS: Glucose,Whole Blood 109 mg/dL (75-99)
--- NOTE | 2017-06-09 12:28 | ECHOF ---
Referral Reason:afib MEASUREMENTS -------- HEIGHT: 172.7 cm WEIGHT: 72.6 kg BP: 118/62 IVSd: 1.3 cm (0.6 - 1.1) LVIDd: 3.9 cm (3.9 - 5.3) LVPWd: 1.3 cm (0.6 - 1.1) IVSs: 2.0 cm LVIDs: 2.3 cm LVPWs: 1.9 cm Ao Diam: 3.4 cm (2.0 - 3.7) AV Cusp: 2.1 cm (1.5 - 2.6) LA Diam: 3.7 cm (2.7 - 3.8) MV EXCURSION: 11.106 mm (> 18.000) MV EF SLOPE: 75 mm/s (70 - 150) EPSS: 0.8 cm MV E Constantine: 0.41 m/s MV DecT: 143 ms MV A [place]: 0.75 m/s MV E/A Ratio: 0.54 RAP: 5.00 mmHg RVSP: 20.82 mmHg FINDINGS -------- This was a technically good study. There is mild concentric left ventricular hypertrophy. Overall left ventricular systolic function is normal with, an EF between 55 - 60 %. The right ventricle is normal in size and function. The left atrium is normal in size. The right atrium is normal in size. The aortic valve is trileaflet, and appears structurally normal. No aortic stenosis or regurgitation. There is trace mitral regurgitation. Trace tricuspid regurgitation present. The right ventricular systolic pressure, as measured by Doppler, is 20.82mmHg. Pulmonic valve appears structurally normal. The aortic root size is normal. The pericardium is normal. CONCLUSIONS -------- 1. This was a technically good study. 2. The right ventricular systolic pressure, as measured by Doppler, is 20.82mmHg. 3. Pulmonic valve appears structurally normal. 4. The aortic root size is normal. 5. The pericardium is normal. 6. There is mild concentric left ventricular hypertrophy. 7. Overall left ventricular systolic function is normal with, an EF between 55 - 60 %. 8. The right ventricle is normal in size and function. 9. The left atrium is normal in size. 10. The right atrium is normal in size. 11. The aortic valve is trileaflet, and appears structurally normal. No aortic stenosis or regurgitation. 12. There is trace mitral regurgitation. 13. Trace tricuspid regurgitation present. PATTERN PUNCHER: Shayy Helms RDCS
[2017-06-09] MEDS: MAGNESIUM SULFATE-D5W PMX 1 GM in DEXTROSE/WATER 1 100ML.BAG IVPB SCH ×2 (14:10→15:14)
[2017-06-09] MEDS: LORATADINE 10 MG TAB PO SCH (14:11)
--- NOTE | 2017-06-09 16:10 | P.GSCN ---
History of Present Illness Consult date: 06/09/17 Reason for Consult: Urinary retention History of present illness: The patient is a 76-year-old male who underwent elective laparoscopic Edwin fundoplication on 06/05/2017. He had problems voiding immediately postop and was in and out cathed twice that evening. He was able to void the next day but a postvoid residual was never checked. He was discharged on 06/06 but dull developed increasing lower abdominal discomfort, urinary frequency and urgency. He presented to the emergency room on 06/07 in the evening and a Jacobs catheter was inserted and drained 930 mL. The patient had been taking tamsulosin 0.4 mg daily at that time and the dose has been increased to 0.4 mg twice a day. Patient was also noted to have atrial fibrillation with fast ventricular rate as well as inadequate anticoagulation with warfarin and was admitted for further evaluation and treatment. The patient denies any previous history of urinary retention. He has a history of bladder outflow obstruction and says that he is taken Flomax for years. He most recently has seen Dr. Manny Hinson of the [facility]. He says he usually voids every 2-3 hours during the day and usually once or twice at night. He denies any daytime incontinence but says that at nighttime he sometimes wets before he can get out of bed to the bathroom. Review of Systems - Constitutional Denies chills, Denies fever - Cardiovascular Denies chest pain - Respiratory Denies wheezing - Gastrointestinal Denies abdominal pain, Denies constipation - Genitourinary Reports as per HPI Past Medical History Past Medical History: Atrial Fibrillation, Cancer, COPD, Diabetes Mellitus, Eye Disorder, GERD/Reflux, Hyperlipidemia, Hypertension, Prostate Disorder, Sleep Apnea/CPAP/BIPAP Additional Past Medical History / Comment(s): skin cancer- squamous and pre- melanoma, macular degeneration, brain bleed- February 2016, back problems-uses walker , cane as needed. History of Any Multi-Drug Resistant Organisms: None Reported Past Surgical History: Back Surgery, Heart Catheterization, Hernia Repair, Joint Replacement, Orthopedic Surgery, Tonsillectomy Additional Past Surgical History / Comment(s): total rt knee replacement, reverse total rt shoulder, lt knee benign tumor removed external, internal. back surgery with laminectomy and fusion. stevie cataracts, bilateral vasectomy Past Anesthesia/Blood Transfusion Reactions: Family History of Problems w/ Anesthesia, Postoperative Nausea & Vomiting (PONV) Additional Past Anesthesia/Blood Transfusion Reaction / Comm: mother hx ponv Past Psychological History: No Psychological Hx Reported Smoking Status: Former smoker Past Alcohol Use History: Daily Additional Past Alcohol Use History / Comment(s): smoked 50 years 1ppd quit 2004 Past Drug Use History: None Reported - Past Family History Mother Family Medical History: Cancer Additional Family Medical History / Comment(s): uterine cancer, pre-cancer colon had bowel resection Father Family Medical History: Cancer Additional Family Medical History / Comment(s): lymphoma Medications and Allergies Home Medications Medication Instructions Recorded Confirmed Type Atorvastatin [Lipitor] 40 mg PO DAILY 04/28/17 06/07/17 History Calcium Citrate 250 mg PO DAILY 04/28/17 06/07/17 History Cetirizine HCl 10 mg PO DAILY 04/28/17 06/07/17 History Cyanocobalamin [Vitamin B-12] 500 mcg PO DAILY 04/28/17 06/07/17 History DULoxetine HCL [Cymbalta] 60 mg PO DAILY 04/28/17 06/07/17 History Diltiazem HCl [Cartia Xt] 120 mg PO DAILY 04/28/17 06/07/17 History Fluticasone Nasal [place] [Flonase 1 spray EA NOSTRIL BID 04/28/17 06/07/17 History Nasal Dougherty] Folic Acid 0.5 mg PO DAILY 04/28/17 06/07/17 History Hydrochlorothiazide 25 mg PO DAILY 04/28/17 06/07/17 History Magnesium 200 mg PO DAILY 04/28/17 06/07/17 History Omeprazole 20 mg PO DAILY 04/28/17 06/07/17 History Pregabalin [Lyrica] 50 mg PO BID 04/28/17 06/07/17 History Tamsulosin HCl [Flomax] 0.4 mg PO DAILY 04/28/17 06/07/17 History Vit C/E/Zn/Coppr/Lutein/Zeaxan 1 cap PO BID 04/28/17 06/07/17 History [Preservision Areds 2 Softgel] Warfarin [Coumadin] 5 mg PO WE 04/28/17 06/07/17 History Warfarin [Coumadin] 7.5 mg PO SUMOTUTHFRSA 04/28/17 06/07/17 History metFORMIN HCL [Glucophage] 500 mg PO W/BRKFST 04/28/17 06/07/17 History traMADol HCL [Ultram] 50 mg PO BID 04/28/17 06/07/17 History HYDROcodone/APAP 7.5-325MG [[place] 1 tab PO Q4H PRN 06/07/17 06/07/17 History 7.5] Allergies Allergy/AdvReac Type Severity Reaction Status Date / Time lisinopril AdvReac Cough Verified 06/07/17 16:11 Surgical - Exam Vital Signs Temp Pulse Resp BP Pulse Ox 97.8 F 144 H 18 107/53 97 06/07/17 15:56 06/07/17 15:56 06/07/17 15:56 06/07/17 15:56 06/07/17 15:56 - General well developed, no pain, obese - Respiratory normal respiratory effort - Abdomen Abdomen: soft, non tender - Genitourinary normal penis with no external lesions, testicles non-tender Results - Labs 06/09/17 05:23 06/09/17 05:23 Abnormal Lab Results - Last 24 Hours (Table) 06/07/17 06/08/17 06/08/17 Range/Units 16:23 11:57 16:57 RBC (4.30-5.90) m/uL Hgb (13.0-17.5) gm/dL Hct (39.0-53.0) % POC Glucose (mg/dL) 121 H 105 H (75-99) mg/dL Hemoglobin A1c 6.6 H (4.2-6.1) % Total Protein (6.3-8.2) g/dL Albumin (3.5-5.0) g/dL 06/08/17 06/09/17 06/09/17 Range/Units 22:00 05:23 05:23 RBC 4.10 L (4.30-5.90) m/uL Hgb 12.2 L (13.0-17.5) gm/dL Hct 37.4 L (39.0-53.0) % POC Glucose (mg/dL) 138 H (75-99) mg/dL Hemoglobin A1c (4.2-6.1) % Total Protein 5.5 L (6.3-8.2) g/dL Albumin 3.2 L (3.5-5.0) g/dL 06/09/17 Range/Units 06:10 RBC (4.30-5.90) m/uL Hgb (13.0-17.5) gm/dL Hct (39.0-53.0) % POC Glucose (mg/dL) 100 H (75-99) mg/dL Hemoglobin A1c (4.2-6.1) % Total Protein (6.3-8.2) g/dL Albumin (3.5-5.0) g/dL Diabetes panel 06/07/17 06/09/17 Range/Units 16:23 05:23 Sodium 137 (137-145) mmol/L Potassium 3.7 (3.5-5.1) mmol/L Chloride 102 (98-107) mmol/L Carbon Dioxide 27 (22-30) mmol/L BUN 15 (9-20) mg/dL Creatinine 0.80 (0.66-1.25) mg/dL Glucose 88 (74-99) mg/dL Hemoglobin A1c 6.6 H (4.2-6.1) % Calcium 9.0 (8.4-10.2) mg/dL AST 22 (17-59) U/L ALT 35 (21-72) U/L Alkaline Phosphatase 94 (38-126) U/L Total Protein 5.5 L (6.3-8.2) g/dL Albumin 3.2 L (3.5-5.0) g/dL Calcium panel 06/09/17 Range/Units 05:23 Calcium 9.0 (8.4-10.2) mg/dL Albumin 3.2 L (3.5-5.0) g/dL Pituitary panel 06/09/17 Range/Units 05:23 Sodium 137 (137-145) mmol/L Potassium 3.7 (3.5-5.1) mmol/L Chloride 102 (98-107) mmol/L Carbon Dioxide 27 (22-30) mmol/L BUN 15 (9-20) mg/dL Creatinine 0.80 (0.66-1.25) mg/dL Glucose 88 (74-99) mg/dL Calcium 9.0 (8.4-10.2) mg/dL Adrenal panel 06/09/17 Range/Units 05:23 Sodium 137 (137-145) mmol/L Potassium 3.7 (3.5-5.1) mmol/L Chloride 102 (98-107) mmol/L Carbon Dioxide 27 (22-30) mmol/L BUN 15 (9-20) mg/dL Creatinine 0.80 (0.66-1.25) mg/dL Glucose 88 (74-99) mg/dL Calcium 9.0 (8.4-10.2) mg/dL Total Bilirubin 0.6 (0.2-1.3) mg/dL AST 22 (17-59) U/L ALT 35 (21-72) U/L Alkaline Phosphatase 94 (38-126) U/L Total Protein 5.5 L (6.3-8.2) g/dL Albumin 3.2 L (3.5-5.0) g/dL Assessment and Plan (1) Acute urinary retention Narrative/Plan: The cause of the patient's postop urinary retention is not clear. He seemed to be voiding adequately prior to admission for his surgery last week. His urinary retention could have been related to bladder overdistention in the immediate postoperative period related to sedation from analgesics and anesthesia. He is currently tolerating tamsulosin 0.4 mg twice a day and this should be continued. His catheter will be removed in the morning and he should be followed with bladder scans to check his postvoid residual to ensure that he is not retaining urine prior to discharge. Status: Acute
[2017-06-09 17:09] LABS: Glucose,Whole Blood 137 mg/dL (75-99)
[2017-06-09] MEDS: WARFARIN 7.5 MG TAB PO SCH (17:16)
[2017-06-09] MEDS: DILTIAZEM CD 120 MG CAP.ER.24H PO SCH (17:16)
[2017-06-09 21:16] LABS: Glucose,Whole Blood 193 mg/dL (75-99)
[2017-06-10] MEDS: SODIUM CHLORIDE 0.9% 1,000 ML IV SCH (05:36)
[2017-06-10 05:45] LABS: Glucose,Whole Blood 120 mg/dL (75-99)
[2017-06-10] MEDS: INSULIN LISPRO (humaLOG) 300 UNIT/3 ML VIAL SQ SCH ×2 (05:49→12:26)
[2017-06-10] MEDS: metFORMIN 500 MG TAB PO SCH (06:31)
[2017-06-10] MEDS: PANTOPRAZOLE 40 MG TABLET PO SCH (06:31)
[2017-06-10 06:54] LABS: Basophils % (A) 1 %; CH 30.6; CHCM 34.2; Eosinophils # (A) 0.3 k/uL (0-0.7); Eosinophils % (A) 5 %; HCT 35.7 % (39.0-53.0); HDW 2.43; HGB 12.2 gm/dL (13.0-17.5); Luc # (Auto) 0.19; Luc % (Auto) 3; Lymphocytes # (A) 2.3 k/uL (1.0-4.8); Lymphocytes % (A) 41 %; MCH 30.7 pg (25.0-35.0); MCHC 34.2 g/dL (31.0-37.0); MCV 89.9 fL (80.0-100.0); Mean Platelet Volume 8.7; Monocytes # (A) 0.4 k/uL (0-1.0); Monocytes % (A) 7 %; Neutrophils # (A) 2.4 k/uL (1.3-7.7); Neutrophils % (A) 43 %; RBC 3.97 m/uL (4.30-5.90); RDW 14.4 % (11.5-15.5); WBC 5.7 k/uL (3.8-10.6); WBC (Perox) 5.86
[2017-06-10 07:15] LABS: INR 1.5 (<1.2); Prothrombin Time 14.7 sec (9.0-12.0)
[2017-06-10 07:20] LABS: Anion Gap 9 mmol/L; Blood Urea Nitrogen 15 mg/dL (9-20); Calcium 8.9 mg/dL (8.4-10.2); Carbon Dioxide 28 mmol/L (22-30); Chloride 100 mmol/L (98-107); Glucose 85 mg/dL (74-99); Magnesium 1.7 mg/dL (1.6-2.3); Non-African American GFR(MDRD) >60 (>60 ml/min/1.73 sqM); Sodium 137 mmol/L (137-145)
[2017-06-10 07:21] LABS: Potassium 4.1 mmol/L (3.5-5.1)
--- NOTE | 2017-06-10 09:08 | P.PN ---
Subjective Taye August is a 68-year-old male who was recently discharged after having a laparoscopic Edwin procedure. Patient states he has been having urinary frequency and urgency. He has been having incontinence. He probably had a catheterization done yesterday he's had decreased urine output. He is not eating and drinking. Patient was evaluated in the emergency room and had evidence of urinary retention he had a Jacobs catheter inserted and had more than 1 L of urine out of his bladder . Patient was also found to have atrial fibrillation with rapid ventricular response he was started on IV Cardizem and was admitted to telemetry floor. 06/09/2017 patient has converted back to sinus rhythm. He is off Cardizem drip and has been restarted on Cardizem 120 mg by mouth daily. Cardiology is following. They've ordered thyroid studies. Patient has Jacobs catheter in place for urinary retention and awaiting urology consult. Patient denies any chest pain or shortness of breath. Denies any nausea or vomiting reports having a bowel movement and eating without difficulty. Denies any abdominal pain. On 06/10/2017 patient remains in normal sinus rhythm he is off Cardizem drip. Jacobs catheter was removed this morning he has not urinated yet, he is tolerating Flomax 0.4 mg twice daily well. Continue was current management and medications, will monitor was bladder scan to assess if patient is going to be able to urinate. If stable he can be discharged this afternoon. If patient is unable to urinate this afternoon he will have his Jacobs catheter reinserted will recheck later. Objective - Vital Signs Vital signs: Vital Signs Temp 98.1 F 06/10/17 04:00 Pulse 74 06/10/17 04:00 Resp 18 06/10/17 04:00 BP 149/71 06/10/17 04:00 Pulse Ox 96 06/10/17 04:00 Intake & Output 06/09/17 06/10/17 06/10/17 18:59 06:59 18:59 Intake Total 480 240 Output Total 400 1800 Balance 80 -1800 240 Weight 73.5 kg Intake: Oral 480 240 Output: Urine 400 1800 Uretheral (Jacobs) 300 Other: Voiding Method Indwelling Catheter Indwelling Catheter # Voids 1 # Bowel Movements 1 - Exam HEENT head normocephalic and atraumatic Neck is supple no JVD no goiter no lymphadenopathy Chest exam reveals a few scattered crackles no wheezing Cardiac exam reveals regular heart sounds no gallops no murmurs Abdomen is soft nontender no organomegaly with normal bowel sounds Extremity exam reveals no edema no cyanosis or clubbing - Labs CBC & Chem 7: 06/10/17 05:58 06/10/17 05:58 Labs: Abnormal Lab Results - Last 24 Hours (Table) 06/09/17 06/09/17 06/09/17 Range/Units 05:23 05:23 12:04 RBC (4.30-5.90) m/uL Hgb (13.0-17.5) gm/dL Hct (39.0-53.0) % PT 13.6 H (9.0-12.0) sec INR 1.4 H (<1.2) POC Glucose (mg/dL) 109 H (75-99) mg/dL Magnesium 1.5 L (1.6-2.3) mg/dL 06/09/17 06/09/17 06/10/17 Range/Units 16:43 21:14 05:44 RBC (4.30-5.90) m/uL Hgb (13.0-17.5) gm/dL Hct (39.0-53.0) % PT (9.0-12.0) sec INR (<1.2) POC Glucose (mg/dL) 137 H 193 H 120 H (75-99) mg/dL Magnesium (1.6-2.3) mg/dL 06/10/17 06/10/17 Range/Units 05:58 05:58 RBC 3.97 L (4.30-5.90) m/uL Hgb 12.2 L (13.0-17.5) gm/dL Hct 35.7 L (39.0-53.0) % PT 14.7 H (9.0-12.0) sec INR 1.5 H (<1.2) POC Glucose (mg/dL) (75-99) mg/dL Magnesium (1.6-2.3) mg/dL Assessment and Plan Plan: Assessment and plan #1 urinary retention, Jacobs catheter inserted and more than 1 L was emptied bladder. Flomax dose was increased to 0.4 mg twice daily Urology consult requested, Jacobs catheter was removed this morning awaiting to assess bladder function #2 atrial fibrillation with rapid ventricular response currently maintained on IV Cardizem drip continue #3 underlying history of hypertension #4 underlying history of hyperlipidemia #5 recent laparoscopic Edwin fundoplication without complication At this time medication and labs were reviewed, dose of Flomax was increased, otherwise continue with current management Will follow closely
[2017-06-10] MEDS: PREGABALIN 50 MG CAP PO SCH (09:39)
[2017-06-10] MEDS: ENOXAPARIN 80 MG/0.8 ML SYRINGE SQ SCH (09:39)
[2017-06-10] MEDS: FLUTICASONE 50MCG/SPRAY NASAL 16GM EA NOSTRIL SCH (09:39)
[2017-06-10] MEDS: HYDROCHLOROTHIAZIDE 25 MG TAB PO SCH (09:40)
[2017-06-10] MEDS: CALCIUM CARBONATE 500 MG CHEWABLE PO SCH (09:40)
[2017-06-10] MEDS: FOLIC ACID 1 MG TAB PO SCH (09:40)
[2017-06-10] MEDS: TAMSULOSIN 0.4 MG CAP.ER.24H PO SCH (09:40)
[2017-06-10] MEDS: DOCUSATE 100 MG CAP PO SCH (09:40)
[2017-06-10] MEDS: CYANOCOBALAMIN 500 MCG TAB PO SCH (09:40)
[2017-06-10] MEDS: LORATADINE 10 MG TAB PO SCH (09:41)
[2017-06-10] MEDS: DILTIAZEM CD 120 MG CAP.ER.24H PO SCH (09:41)
[2017-06-10] MEDS: MAGNESIUM OXIDE 400 MG TAB PO SCH (09:41)
[2017-06-10] MEDS: DULoxetine HCL 60 MG CAPSULE.DR PO SCH (09:41)
[2017-06-10] MEDS: ATORVASTATIN 40 MG TAB PO SCH (09:42)
[2017-06-10] MEDS: traMADol 50 MG TAB PO SCH (09:44)
[2017-06-10 11:32] VITALS: BP 154/76; PULSE 82; RESP 20; TEMP 97
[2017-06-10 12:00] LABS: Glucose,Whole Blood 120 mg/dL (75-99)
--- NOTE | 2017-06-10 12:35 | P.PN ---
Subjective This is a 76-year-old gentleman who follows with Dr. Regalado in the office. He has a known history of hypertension, diabetes, hyperlipidemia, sleep apnea, COPD, prior TIA, chronic persistent atrial fibrillation. He also states that he had a heart catheterization several years ago revealed only mild coronary artery disease at that time. Patient was recently in the hospital, at which time he underwent a laparoscopic Edwin procedure by Dr. Kline on June 05, he was discharged from there and states that since then he's been having to urinate frequently, and very little comes out each time. He also states that he's been incontinent of urine and a separate having a decrease in appetite. For these reasons he came to the emergency room. EKG on presentation here showed atrial fibrillation with a rapid ventricular response with occasional PVCs. Blood pressure on presentation here 108/50, heart rate in the 150 range, 97% pulse ox on room air. WBC 7.4 on admission hemoglobin 14.7, hemoglobin 12.2 this morning. Potassium 3.7, BUN 15, creatinine 0.8. Magnesium level on admission 1.4, 1.5 this morning. Troponin 0.038. At the time of my examination, patient is sitting up in the chair, he does have a Jacobs catheter in place and is draining adequate amounts of urine. Denies any point having any chest discomfort or difficulty breathing. 06/10/2017 Patient seen and examined this morning, remaining in normal sinus rhythm. He feels well overall, no complaints. Echocardiogram with Doppler study reveals an ejection fraction of 55-60%. INR 1.5 today. Objective - Vital Signs Vital signs: Vital Signs Temp 97.0 F L 06/10/17 11:32 Pulse 82 06/10/17 11:32 Resp 20 06/10/17 11:32 BP 154/76 06/10/17 11:32 Pulse Ox 95 06/10/17 11:32 Intake & Output 06/09/17 06/10/17 06/10/17 18:59 06:59 18:59 Intake Total 480 240 Output Total 400 1800 50 Balance 80 -1800 190 Weight 73.5 kg Intake: Oral 480 240 Output: Urine 400 1800 50 Uretheral (Jacobs) 300 Other: Voiding Method Indwelling Catheter Indwelling Catheter Indwelling Catheter # Voids 1 # Bowel Movements 1 - Exam PHYSICAL EXAMINATION: HEENT: Head is atraumatic, normocephalic. Pupils equal, round. Neck is supple. There is no elevated jugular venous pressure. HEART EXAMINATION: Heart S1, S2 normal. No murmur or gallop heard. CHEST EXAMINATION: Lungs are clear to auscultation and precussion. No chest wall tenderness is noted on palpation or with deep breathing. ABDOMEN: Soft, nontender. Bowel sounds are heard. No organomegaly noted. EXTREMITIES: 2+ peripheral pulses with no evidence of peripheral edema and no calf tenderness noted. NEUROLOGIC patient is awake, alert and oriented -3. . - Labs CBC & Chem 7: 06/10/17 05:58 06/10/17 05:58 Labs: Abnormal Lab Results - Last 24 Hours (Table) 06/09/17 06/09/17 06/10/17 Range/Units 16:43 21:14 05:44 RBC (4.30-5.90) m/uL Hgb (13.0-17.5) gm/dL Hct (39.0-53.0) % PT (9.0-12.0) sec INR (<1.2) POC Glucose (mg/dL) 137 H 193 H 120 H (75-99) mg/dL 06/10/17 06/10/17 06/10/17 Range/Units 05:58 05:58 11:53 RBC 3.97 L (4.30-5.90) m/uL Hgb 12.2 L (13.0-17.5) gm/dL Hct 35.7 L (39.0-53.0) % PT 14.7 H (9.0-12.0) sec INR 1.5 H (<1.2) POC Glucose (mg/dL) 120 H (75-99) mg/dL Assessment and Plan Plan: Assessment and plan #1 symptoms of urinary retention and frequency. Patient did put out more than a 1 L when the Jacobs was inserted. Dose of Flomax was increased. #2 atrial fibrillation with rapid ventricular response in a patient with known chronic persistent atrial fibrillation. Patient does take Coumadin for anticoagulation however has held that for 5 days because of the Edwin procedure. #3 recent Edwin fundoplication procedure #4 hypertension #5 hyperlipidemia #6 diabetes #7 COPD #8 abnormal troponin, likely secondary to oxygen supply and demand mismatch. Patient denies having any chest discomfort. #9 hypomagnesemia Plan From cardiology's perspective, patient may be able to be discharged once cleared by the primary. We will make him a follow-up appointment to see Dr. Regalado in the office post discharge. DNP note has been reviewed, I agree with a documented findings and plan of care. Patient was seen and examined.
[2017-06-11] MEDS ORDERED: WARFARIN 5 MG TAB PO SCH (18:00)
== END 2017-06-10 16:36 | disposition home or self-care (01) | DRG 696 ==
LOC: EC 15:50 → 6SEL 19:36
PROVIDERS: ADMIT Internal Medicine; ATTEND Internal Medicine
DX: R33.9 Retention of urine, unspecified (principal); I48.1 Persistent atrial fibrillation; J44.9 Chronic obstructive pulmonary disease, unspecified; I48.2 Chronic atrial fibrillation; E83.42 Hypomagnesemia; E78.5 Hyperlipidemia, unspecified; R35.0 Frequency of micturition; R39.15 Urgency of urination; I10 Essential (primary) hypertension; G47.30 Sleep apnea, unspecified; N32.0 Bladder-neck obstruction; N42.9 Disorder of prostate, unspecified; H35.30 Unspecified macular degeneration; I25.10 Atherosclerotic heart disease of native coronary artery without angina pectoris; K21.9 Gastro-esophageal reflux disease without esophagitis; R32 Unspecified urinary incontinence; E11.9 Type 2 diabetes mellitus without complications; I49.3 Ventricular premature depolarization; Z79.01 Long term (current) use of anticoagulants; Z79.899 Other long term (current) drug therapy; Z79.84 Long term (current) use of oral hypoglycemic drugs; Z85.820 Personal history of malignant melanoma of skin; Z96.651 Presence of right artificial knee joint; Z96.611 Presence of right artificial shoulder joint; Z98.42 Cataract extraction status, left eye; Z98.41 Cataract extraction status, right eye; Z87.891 Personal history of nicotine dependence; Z86.73 Personal history of transient ischemic attack (TIA), and cerebral infarction without residual deficits; Z88.8 Allergy status to other drugs, medicaments and biological substances
CPT/HCPCS: 36415; 51798; 71020; 80048; 80053; 81001; 82550; 82553; 83036; 83735; 84443; 84484; 85025; 85610; 85730; 93005; 93306; 94760; 96365; 96368; 99291

== ENCOUNTER 2017-08-08 08:08 | Day surgery (SDC) | payer MEDICARE ==
[2017-08-07 10:08] VITALS: BMI 26.1
[~2017-08-08 08:08] MED LIST changes: +ALPRAZolam 0.25 MG TAB PO PRN; +ALPRAZolam 0.5 MG TAB PO PRN; +ASPIRIN 325 MG TAB PO STA; +ATORVASTATIN 80 MG TAB PO STA; -HEPARIN SODIUM,PORCINE 5,000 UNIT/ML 1 ML VIAL SQ ONE; -HYDROmorphone 1 MG/ML 1 ML SYRINGE IVP PRN; +NITROGLYCERIN SL TABS 0.4 MG TAB SUBLINGUAL PRN; -ONDANSETRON 4 MG/2 ML VIAL IVP PRN; +SODIUM CHLORIDE 0.9% 1,000 ML in EMPTY BAG 1 BAG IV ONE; -ceFAZolin 2 GM in SODIUM CHLORIDE 0.9% 100 ML IVPB ONE
[2017-08-08] MEDS ORDERED: VERAPAMIL 2.5 MG/ML 2 ML AMP ONE (08:13)
[2017-08-08 08:46] LABS: Glucose,Whole Blood 119 mg/dL (75-99)
[2017-08-08 08:48] LABS: INR 1.3 (<1.2); Prothrombin Time 12.6 sec (9.0-12.0)
[2017-08-08 08:53] VITALS: PULSE 78; RESP 20; TEMP 98.6
[2017-08-08] MEDS ORDERED: MIDAZOLAM 2 MG/2 ML VIAL ONE (09:04)
[2017-08-08] MEDS ORDERED: HEPARIN SODIUM 1,000 UN/ML (10ML VL) ONE (09:06)
[2017-08-08] MEDS ORDERED: MIDAZOLAM 2 MG/2 ML VIAL IV ONE (09:18)
[2017-08-08] MEDS: LIDOCAINE 2% INJ 20 MG/ML SQ ONE ×2 (09:19→09:30)
[2017-08-08] MEDS ORDERED: IOHEXOL 350 MG/ML 125ML BOTTLE INJ ONE (09:45)
[2017-08-08] MEDS ORDERED: SODIUM CHLORIDE 0.9% 1,000 ML IV ONE (09:45)
[2017-08-08] MEDS ORDERED: RX INFO: IV CONTRAST WAS GIVEN 1 EACH MISC MISCELLANE PRN (09:52)
[2017-08-08] MEDS ORDERED: SODIUM CHLORIDE 0.9% 1,000 ML IV SCH (10:00)
[2017-08-08] MEDS ORDERED: PREGABALIN 50 MG CAP PO STA (11:11)
--- NOTE | 2017-08-08 11:11 | CC ---
CARDIAC CATHETERIZATION REPORT DATE OF SERVICE: 08/08/2017 PERFORMING PHYSICIAN: Dioni Vanegas MD, Project Estimator. PROCEDURE PERFORMED: Selective right and left coronary angiogram. INDICATION: This is a pleasant 76-year-old gentleman who was not feeling well lately and underwent myocardial perfusion imaging stress that showed apical ischemia. He was brought today to undergo a heart catheterization. APPROACH: Right common femoral artery. COMPLICATION: None. LEVEL OF SEDATION: Moderate with sedation length of 30 minutes. PROCEDURE DESCRIPTION: After obtaining an informed consent, the patient was brought to Cardiac Methods Specialist. The right common femoral artery was cannulated using micropuncture technique. Micropuncture wire passed easily. Then I placed a 6-Latvian sheath in the right common femoral artery. After that, in view of the severe tortuosity, I did exchange my 6-Latvian 11 cm sheath into a 6-Latvian 23 cm sheath. After that, I did selective right and left coronary angiogram using JR4 and JL4 catheters. The procedure was completed without any complication. SELECTIVE CORONARY ANGIOGRAM: 1. The RCA is a large caliber vessel and is a dominant vessel. The RCA is angiographically normal. It distally bifurcates into PDA and PLV branches. Both are angiographically normal. 2. The left main is angiographically normal. It bifurcates into the left circumflex and left anterior descending artery. 3. The left circumflex is a large caliber vessel and it is a nondominant vessel with the proximal circ appeared to have mild disease only. The mid left circumflex is angiographically normal and gives rise into a large OM branch. The left circumflex distally is angiographically normal. 4. LEFT ANTERIOR DESCENDING ARTERY: The proximal LAD appeared to have disease in the range of 40% to 50%. It gives rise into two small diagonal branches but the mid LAD is angiographically normal. The LAD distally appeared to be angiographically normal. CONCLUSION: 1. Normal right coronary artery. 2. Normal left main coronary artery. 3. Mild disease involving the left circumflex. 4. Intermediate disease involving the proximal and mid left anterior descending artery. POSTPROCEDURE MANAGEMENT: 1. Maximize medical treatment. 2. Follow up with the patient. MMODL / IJN: [id number] /
[2017-08-08] MEDS ORDERED: HYDROCHLOROTHIAZIDE 25 MG TAB PO SCH (11:15)
--- NOTE | 2017-08-08 11:17 | LTR ---
DATE OF SERVICE: 08/08/2017 RE: Taye August Dear Divya; Mr. Taye August underwent a heart catheterization today and that revealed only mild to moderate nonobstructive coronary artery disease. I want to thank you for allowing me to participate in his care and please do not hesitate to call if you have any questions or concerns. Sincerely, MD WENCESLAO Saenz / YAAKOV: [id number] /
[2017-08-08 15:14] LABS: Glucose,Whole Blood 117 mg/dL (75-99)
[2017-08-08 16:17] VITALS: BP 132/70
== END 2017-08-08 17:21 | disposition home or self-care (01) ==
LOC: CATHCVL 08:08
PROVIDERS: ATTEND Internal Medicine Interventional Cardiology
DX: I25.10 Atherosclerotic heart disease of native coronary artery without angina pectoris (principal); I48.0 Paroxysmal atrial fibrillation; G47.33 Obstructive sleep apnea (adult) (pediatric); J44.9 Chronic obstructive pulmonary disease, unspecified; E78.00 Pure hypercholesterolemia, unspecified; I10 Essential (primary) hypertension; Z87.891 Personal history of nicotine dependence; Z79.899 Other long term (current) drug therapy; Z79.01 Long term (current) use of anticoagulants; Z88.8 Allergy status to other drugs, medicaments and biological substances; Z79.51 Long term (current) use of inhaled steroids
CPT/HCPCS: 93454; 99152; 99153; 85610; C1769 ×4; C1894 ×4; C1887; J2001; J2250; Q9967

== ENCOUNTER → 2018-09-30 | Outpatient (CLI) | payer MEDICARE ==
[2018-09-30 15:57] LABS: Prothrombin Time 10.8 sec (9.0-12.0)
== END | disposition home or self-care (01) ==
LOC: LABWHC1 14:33
PROVIDERS: ATTEND Physical Medicine & Rehabilitation
DX: M48.062 Spinal stenosis, lumbar region with neurogenic claudication (principal); M43.16 Spondylolisthesis, lumbar region; M51.17 Intervertebral disc disorders with radiculopathy, lumbosacral region; M47.27 Other spondylosis with radiculopathy, lumbosacral region; M41.26 Other idiopathic scoliosis, lumbar region; M47.814 Spondylosis without myelopathy or radiculopathy, thoracic region; E78.5 Hyperlipidemia, unspecified; K58.9 Irritable bowel syndrome, unspecified; E11.9 Type 2 diabetes mellitus without complications; M54.5 Low back pain; Z79.01 Long term (current) use of anticoagulants; Z96.651 Presence of right artificial knee joint; Z87.19 Personal history of other diseases of the digestive system; Z98.890 Other specified postprocedural states
CPT/HCPCS: 36415; 85610

== ENCOUNTER → 2020-05-31 | Outpatient (CLI) | payer MEDICARE ==
[2020-05-31 09:29] LABS: HCT 40.5 % (39.0-53.0); HGB 13.2 gm/dL (13.0-17.5); MCH 30.1 pg (25.0-35.0); MCHC 32.6 g/dL (31.0-37.0); MCV 92.4 fL (80.0-100.0); Platelet Count 282 k/uL (150-450); RBC 4.38 m/uL (4.30-5.90); RDW 13.6 % (11.5-15.5); WBC 7.4 k/uL (3.8-10.6)
[2020-05-31 09:36] LABS: African American GFR (CKD) >90 (>60 ml/min/1.73 sqM); Anion Gap 6 mmol/L; Blood Urea Nitrogen 15 mg/dL (9-20); Carbon Dioxide 30 mmol/L (22-30); Chloride 103 mmol/L (98-107); Glucose 143 mg/dL (74-99); Non-African American GFR(CKD) 82 (>60 ml/min/1.73 sqM); Sodium 139 mmol/L (137-145)
== END | disposition home or self-care (01) ==
LOC: LABPAT 07:54
PROVIDERS: ATTEND Internal Medicine Interventional Cardiology
DX: Z01.818 Encounter for other preprocedural examination (principal); I25.10 Atherosclerotic heart disease of native coronary artery without angina pectoris; I48.0 Paroxysmal atrial fibrillation
CPT/HCPCS: 36415; 80051; 82565; 82947; 84520; 85027

== ENCOUNTER → 2020-06-05 | Day surgery (SDC) | payer MEDICARE ==
[2020-05-30 12:49] VITALS: BMI 27.4
[~2020-06-05] MED LIST changes: +HYDROmorphone 1 MG/ML 1 ML SYRINGE IVP PRN; +IOPAMIDOL-370 100ML BTL INJ ONE; +LIDOCAINE 1% INJ 10MG/ML (20 ML MDV) SQ ONE; +MIDAZOLAM 2 MG/2 ML VIAL IVP ONE; +RX INFO: IV CONTRAST WAS GIVEN 1 EACH MISC MISCELLANE PRN; +SODIUM CHLORIDE 0.9% 1,000 ML IV SCH; +hydrALAZINE HCL 20 MG/ML 1 ML VIAL IVP STA; +hydrALAZINE HCL 20 MG/ML 1 ML VIAL ONE
[2020-06-05 07:20] VITALS: TEMP 98
[2020-06-05 07:21] LABS: Glucose,Whole Blood 151 mg/dL (75-99)
[2020-06-05 09:17] VITALS: RESP 16
--- NOTE | 2020-06-05 12:39 | CC ---
CARDIAC CATHETERIZATION REPORT DATE OF SERVICE: 06/15/2020 PERFORMING PHYSICIAN: Dioni Vanegas MD. PROCEDURE PERFORMED: 1. Selective right and left coronary angiogram. 2. Left heart catheterization. INDICATION: This is an 79-year-old gentleman with hypertension and dyslipidemia and paroxysmal atrial fibrillation, who was experiencing symptoms of increasing shortness of breath with exertion. He underwent myocardial perfusion imaging stress test and that revealed an anterior ischemia. Because of that, a heart catheterization was advised. APPROACH: Right common femoral artery. COMPLICATION: None. LEVEL OF SEDATION: Moderate with sedation length of 20 minutes. PROCEDURE DESCRIPTION: After obtaining an informed consent, the patient was brought to the cardiac label machine operator. The right common femoral artery was cannulated using micropuncture technique, the micropuncture wire passed easily, then I placed a 6-Sami sheath 23 cm because of the tortuosity in the iliac at the right common femoral artery. I did selective right and left coronary angiogram with JR4 and JL4 catheters. Left heart catheterization was not performed. SELECTIVE CORONARY ANGIOGRAM: 1. The right coronary artery is a large caliber vessel and it is a dominant vessel. The RCA is angiographically normal, it distally bifurcates into PDA and PLV branches, both appeared to be angiographically normal. 2. The left main is angiographically normal. It bifurcates into LCX and LAD. 3. The LCX is a large caliber vessel and is a nondominant vessel. The LCX is angiographically normal. It gives rise into the first and second obtuse marginal branches both appeared to be angiographically normal. 4. The LAD, the proximal LAD has mild disease only. The mid LAD has intermediate lesion, appeared to be in the range of 50% to 60%. only. CONCLUSION: Intermediate disease involving the mid LAD appeared to be in the range of 50% to 60%. POSTPROCEDURE MANAGEMENT: 1. I did recommend maximized medical treatment since the intermediate lesion is not in the distribution of the abnormalities on the stress test. 2. Follow up with the patient. MMODL / IJN: [id number] /
[2020-06-05 14:56] VITALS: BP 137/63; PULSE 76
== END ==
LOC: CATHCVL 06:44
PROVIDERS: ATTEND Internal Medicine Interventional Cardiology
DX: I25.110 Atherosclerotic heart disease of native coronary artery with unstable angina pectoris (principal); I48.0 Paroxysmal atrial fibrillation; I49.3 Ventricular premature depolarization; I10 Essential (primary) hypertension; E78.5 Hyperlipidemia, unspecified; E78.00 Pure hypercholesterolemia, unspecified; E11.9 Type 2 diabetes mellitus without complications; Z79.84 Long term (current) use of oral hypoglycemic drugs; Z79.82 Long term (current) use of aspirin; Z79.899 Other long term (current) drug therapy; Z88.8 Allergy status to other drugs, medicaments and biological substances
CPT/HCPCS: 93458; C1769 ×4; C1894 ×3; J2250; J0360; J2001; J1170; Q9967

== ENCOUNTER → 2020-08-01 | Outpatient (CLI) | payer MEDICARE ==
--- NOTE | 2020-08-01 15:21 | MR ---
EXAMINATION TYPE: MR lumbar spine wo con DATE OF EXAM: 08/01/2020 COMPARISON: NONE HISTORY: Lower back pain, Weakness, center of back. Since surgery 6yrs ago. TECHNIQUE: Multiplanar, multisequence imaging of the lumbar spine is performed without IV contrast. FINDINGS: Sagittal images of the lumbar spine show exaggerated lumbar lordosis. There is slight grade 1 anterolisthesis L4 on L5 and L5 and S1. There is slight grade 1 retrolisthesis L1 on L2, L2 on L3, and L3 on L4. There is mild height loss or anterior wedging L1 level. There is mild to moderate heig ht loss or anterior wedging T12 level. Multilevel disc desiccation. Fairly moderate to advanced multi level disc space narrowing L1-L2 through the L4-L5 levels. Vacuum disc phenomenon L4-L5 level. Mild d isc space narrowing L5-S1 level. Posterior decompression with absent spinous process L3-L5 levels. T he conus medullaris is normal in position and signal ending at T12-L1 disc space. The bone marrow si gnal intensity shows overall heterogeneity. Artifact from posterior fusion hardware L5-S1 level is no joyce bilaterally. Axial images at T12-L1 level shows mild to moderate broad disc bulge with left paracentral disc protr usion component effacing anterior thecal sac and mild facet degenerative changes bilaterally. Patent bilateral neural foramina. Axial images at L1-L2 level shows spondylosis with mild/moderate broad disc bulge mildly effacing the anterior thecal sac with [id number] facet degenerative changes bilaterally. There is left fora bruno disc protrusion component causing asymmetric moderate inferior neural foraminal narrowing axial image 26. Right-sided neural foramina is patent. Axial images at L2-L3 level show spondylolisthesis with posterior spur disc complex mildly efface the anterior thecal sac. There is mild/moderate facet arthropathy bilaterally. There are bilateral mary ectomy defects of spinous process resection. There is moderate right and mild left-sided neural jessie inal narrowing. Axial images at L3-L4 level show laminectomy defects and spinous process resection. Spinal canal pres erved. Moderate facet arthropathy bilaterally. Mild to moderate bilateral anterior inferior neural fo raminal narrowing. Bony encroachment right L3 nerve sagittal image 14 is noted. Axial images at L4-L5 show spondylolisthesis with artifact from right-sided fusion hardware. There is broad-based right paracentral disc protrusion. Spinal canal preserved. Posterior decompression is pr esent. There is severe right and moderate left-sided neural foraminal narrowing. Encroachment right L 4 nerve suspected sagittal image 14. Some artifact degradation noted. Axial images at L5-S1 show artifact from posterior fusion hardware. There is posterior scar tissue. S yamila canal preserved. Bilateral neural foramina are likely patent. Findings seen better on axial speedy ges. Ectatic abdominal aorta to 2.3 cm AP diameter axial image 18. IMPRESSION: Multilevel surgical changes redemonstrated. Successful posterior decompression. Multileve l spondylolisthesis and degenerative changes as detailed above.
== END | disposition home or self-care (01) ==
LOC: RADMRIMAIN 14:17
PROVIDERS: ATTEND Physical Medicine & Rehabilitation
DX: M43.16 Spondylolisthesis, lumbar region (principal); M47.26 Other spondylosis with radiculopathy, lumbar region; Z98.1 Arthrodesis status; Z98.890 Other specified postprocedural states
CPT/HCPCS: 72148

== ENCOUNTER → 2020-08-05 | Outpatient (CLI) | payer MEDICARE ==
--- NOTE | 2020-08-05 14:57 | MR ---
EXAMINATION TYPE: MR knee LT wo con DATE OF EXAM: 08/05/2020 COMPARISON: None HISTORY: Pain in left knee, osteosrthritis Multiplanar multiecho imaging of the left knee was performed without contrast. Anterior and posterior cruciate ligaments are intact. There is minute knee joint effusion. Lateral me niscus is intact. There is increased signal horizontally in the posterior horn medial meniscus extend ing to the inferior surface. The collateral ligaments are intact. I see no focal bone destruction. Joint spaces are fairly normal. There is 4 x 1.5 cm popliteal cyst. There is no evidence for fracture. There is subcutaneous edema anterior to the patella and patellar tendon. IMPRESSION: Subcutaneous edema. Oblique horizontal tear of the posterior horn of the medial meniscus. Joint effusion and popliteal cyst.
== END | disposition home or self-care (01) ==
LOC: RADMRIMAIN 10:58
PROVIDERS: ATTEND Orthopaedic Surgery
DX: S83.242A Other tear of medial meniscus, current injury, left knee, initial encounter (principal); M71.22 Synovial cyst of popliteal space [Baker], left knee; R60.0 Localized edema; M17.12 Unilateral primary osteoarthritis, left knee; E11.9 Type 2 diabetes mellitus without complications

== ENCOUNTER → 2022-07-27 | Outpatient (CLI) | payer MEDICARE, BC ==
--- NOTE | 2022-07-28 05:04 | MR ---
EXAMINATION TYPE: MR cspine/tspine wo con DATE OF EXAM: 07/27/2022 COMPARISON: None HISTORY: No balance for 1 year, neck and mid back pain. History of mid back surgery. Multiplanar multiecho imaging of the cervical and thoracic spine was performed with no contrast. There is some straightening of the cervical spine and moderate disc space narrowing at C5-6 and C6-7 and C7-T1 with spurring of the endplates. There is slight kyphotic curvature at C5-6 level. No compre ssion fracture. There is multilevel mild cervical hypertrophic facet arthropathy. The brainstem is in tact. There is some subtle increased signal on the T2 images in the anterior aspect of the cervical c ord at the C3-4 level. The cervical prevertebral soft tissues are intact. Spinal canal is narrowed to 6.5 mm at C3-4 level which is the narrowest point. There is no cervical paraspinal mass. The thoracic vertebrae are fairly normal alignment. There is de generative disc space narrowing throughout the lower thoracic spine. There is anterior wedging of L1 vertebra 25% that appears old. There is posterior disc bulging and spur formation at T11-T12 and T10- 11 with some narrowing of the spinal canal. There is a mild relative spinal stenosis at T11-12. The t horacic spinal cord shows no edema. There is a very mild syrinx that measures 2 mm involving the lowe r thoracic spinal cord from the level of T10-T7. There is no thoracic paraspinal mass. No focal bone destruction in the thoracic spine. 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 No significant spinal stenosis. Mild kyphotic curvat ure at C5-6. Multilevel thoracic spondylotic changes. No significant compression fracture. There is a old compress ion fracture of L1. 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 No evidence of a spinal cord mass. There is mild s yamila stenosis at T10-11 and T11-12 due to the posterior disc bulging and herniation. There is mild p osterior disc bulging also at T8-9 and L1-L2.
== END | disposition home or self-care (01) ==
LOC: RADMRIMAIN 14:11
PROVIDERS: ATTEND Physical Medicine & Rehabilitation
DX: M48.04 Spinal stenosis, thoracic region (principal); M51.24 Other intervertebral disc displacement, thoracic region
CPT/HCPCS: 72141; 72146

== ENCOUNTER 2022-09-22 18:07 | Emergency (ER) | payer MEDICARE, BC ==
[2022-09-22 18:13] VITALS: RESP 16
--- NOTE | 2022-09-22 18:35 | ED ---
Nausea/Vomiting/Diarrhea HPI - General Chief complaint: Nausea/Vomiting/Diarrhea Stated complaint: diarrhea Time Seen by Provider: 09/22/22 18:17 Source: patient Mode of arrival: wheelchair Limitations: no limitations - History of Present Illness Initial comments: Patient is an 81-year-old male presents to the emergency room with complaints of diarrhea ongoing for 3 weeks without any other associated symptoms. He reports that he is having stool-like diarrhea about every 3-4 hours. He denies any nausea, vomiting, abdominal pain, chest pain, shortness of breath, fevers or chills. He reports that he has anal fissures so consequently he occasionally has blood in his stool but no consistent episodes of bloody stools and he denies any mucus in his stool. He reports that the stools are typically brown and liquid in color/consistency without any formed stool over the last few weeks. He discussed the symptoms with his primary care provider kenyatta francis in the week who ordered stool studies which were completed on 09/17/2022 which reveal negative cryptosporidium negative guardian antigen and C. diff negative. He reports that he has been drinking Pedialyte and other electrolyte drinks to help with the volume loss from the diarrhea but does overall feel weak. BPH, sleep apnea, chronic back pain with cane use regularly, very hard of hearing and macular degeneration. - Related Data Home Medications Medication Instructions Recorded Confirmed Cetirizine HCl 10 mg PO DAILY 04/28/17 10/27/21 Cyanocobalamin [Vitamin B-12] 500 mcg PO DAILY 04/28/17 10/27/21 DULoxetine HCL [Cymbalta] 60 mg PO HS 04/28/17 10/27/21 Fluticasone Nasal [place] [Flonase 1 spr EA NOSTRIL BID 04/28/17 10/27/21 Nasal [place]] Pregabalin [Lyrica] 50 mg PO BID PRN 04/28/17 10/27/21 dilTIAZem HCL [Cartia Xt] 120 mg PO DAILY 04/28/17 10/27/21 hydroCHLOROthiazide 25 mg PO DAILY 04/28/17 10/27/21 traMADol HCL [Ultram] 50 mg PO BID PRN 04/28/17 10/27/21 Isosorbide Mononitrate ER [Imdur] 15 mg PO DAILY 06/05/20 10/27/21 Olmesartan [Benicar] 5 mg PO BID 06/05/20 10/27/21 Atorvastatin [Lipitor] 40 mg PO HS 10/27/21 10/27/21 Calcium/Magnesium/Zinc 1 tab PO DAILY 10/27/21 10/27/21 [Fyqqhqc-Bfvekewpz-Eeus Tablet] Gravity Cinnamon 2000mg 1 cap PO DAILY 10/27/21 10/27/21 Cholecalciferol [Vitamin D3 (25 25 mcg PO DAILY 10/27/21 10/27/21 Mcg = 1000 Iu)] Escitalopram [Lexapro] 20 mg PO DAILY 10/27/21 10/27/21 Ginkgo Biloba 500 mg PO DAILY 10/27/21 10/27/21 Immune 24 Hour + 1 tab PO DAILY 10/27/21 10/27/21 L.acidoph,Paracasei, B.lactis 1 cap PO DAILY 10/27/21 10/27/21 [Probiotic] Multivitamins, Thera [Multivitamin 1 tab PO DAILY 10/27/21 10/27/21 (formulary)] Neuriva 1 tab PO DAILY 10/27/21 10/27/21 Pyridoxine HCl (Vitamin B6) 100 mg PO DAILY 10/27/21 10/27/21 [Vitamin B-6] Turmeric Root Extract [Turmeric] 500 mg PO DAILY 10/27/21 10/27/21 Ubidecarenone [Co Q-10] 100 mg PO DAILY 10/27/21 10/27/21 Vit C/E/Zn/Coppr/Lutein/Zeaxan 1 cap PO DAILY 10/27/21 10/27/21 [Preservision Areds 2 Softgel] Vitamin B Complex 1 cap PO DAILY 10/27/21 10/27/21 metFORMIN HCL ER [Glucophage XR] 500 mg PO DAILY 10/27/21 10/27/21 Previous Rx's Medication Instructions Recorded Albuterol Inhaler [Ventolin Hfa 2 puff INHALATION RT-QID PRN #8 gm 10/29/21 Inhaler] Budesonide/Formoterol Fumarate 1 puff INHALATION BID #10.2 gm 10/29/21 [Symbicort 80-4.5 Mcg Inhaler] cefUROXime axetiL [Ceftin] 500 mg PO BID 5 Days #10 tab 10/29/21 predniSONE 10 mg PO DIRECTED #30 tab 10/29/21 Allergies Allergy/AdvReac Type Severity Reaction Status Date / Time lisinopril AdvReac Cough Verified 10/27/21 19:50 Review of Systems ROS Statement: Those systems with pertinent positive or pertinent negative responses have been documented in the HPI. ROS Other: All systems not noted in ROS Statement are negative. Past Medical History Past Medical History: Atrial Fibrillation, Cancer, COPD, Diabetes Mellitus, Eye Disorder, GERD/Reflux, Hyperlipidemia, Hypertension, Prostate Disorder, Sleep Apnea/CPAP/BIPAP Additional Past Medical History / Comment(s): skin cancer- squamous and pre- melanoma, macular degeneration, fell off porch and had a brain bleed from this incident- February 2016, back problems-uses walker, cane as needed. covid 14 April 2021 History of Any Multi-Drug Resistant Organisms: None Reported Past Surgical History: Back Surgery, Heart Catheterization, Hernia Repair, Joint Replacement, Orthopedic Surgery, Tonsillectomy Additional Past Surgical History / Comment(s): total rt knee replacement, reverse total rt shoulder, lt knee benign tumor removed external, internal. back surgery with laminectomy and fusion. stevie cataracts, mema fundoplication Past Anesthesia/Blood Transfusion Reactions: Family History of Problems w/ Anesthesia Additional Past Anesthesia/Blood Transfusion Reaction / Comment(s): Takes longer to wake up. Mother had problems with N&V. Past Psychological History: Anxiety Smoking Status: Former smoker Past Alcohol Use History: Daily Past Drug Use History: None Reported - Past Family History Mother Family Medical History: Cancer Additional Family Medical History / Comment(s): uterine cancer, pre-cancer colon had bowel resection Father Family Medical History: Cancer Additional Family Medical History / Comment(s): lymphoma General Exam Limitations: no limitations General appearance: alert, in no apparent distress Head exam: Present: atraumatic, normocephalic, normal inspection Eye exam: Present: normal appearance, PERRL, EOMI. Absent: scleral icterus, conjunctival injection, periorbital swelling ENT exam: Present: mucous membranes moist Expanded Ear exam: Present: normal external inspection Mouth exam: Present: normal external inspection. Absent: drooling Teeth exam: Present: gingival enlargement, other (Multiple missing teeth with decay. Partial intact) Throat exam: normal inspection Neck exam: Present: normal inspection, full ROM. Absent: lymphadenopathy Respiratory exam: Present: normal lung sounds bilaterally. Absent: respiratory distress, wheezes, rales, rhonchi, stridor Cardiovascular Exam: Present: regular rate, normal rhythm, normal heart sounds. Absent: systolic murmur, diastolic murmur, rubs, gallop, clicks GI/Abdominal exam: Present: soft, normal bowel sounds. Absent: distended, tenderness, guarding, rebound, rigid Rectal exam: Present: deferred Extremities exam: Present: normal inspection, full ROM, pedal edema (Bilateral +1-2). Absent: tenderness Back exam: Present: normal inspection Neurological exam: Present: alert, oriented X3, CN II-XII intact Psychiatric exam: Present: normal affect, normal mood Skin exam: Present: warm, dry, intact, normal color. Absent: rash Course Vital Signs 09/22/22 09/22/22 09/22/22 18:11 19:25 21:28 Temperature 97.5 F L 98.1 F 98.4 F Pulse Rate 86 80 84 Respiratory 16 16 16 Rate Blood Pressure 126/65 156/80 O2 Sat by Pulse 96 97 96 Oximetry 09/22/22 09/22/22 21:29 22:10 Temperature 98.2 F Pulse Rate 82 Respiratory 16 Rate Blood Pressure 150/83 142/80 O2 Sat by Pulse 96 Oximetry Medical Decision Making - Medical Decision Making 81-year-old male presenting to the emergency room with 3 weeks of ongoing diarrhea without any other associated symptoms. Previously seen by primary care provider with stool studies completed previous laboratory studies of stool studies were reviewed and all negative including C. diff. No changes in stool consistency or presentation no indication for repeat stool studies at this time will obtain CBC, CMP, amylase, lipase along with urinalysis and CT of the abdomen in the setting of outpatient workup without any acute findings. Bilateral lower extremity edema noted will defer IV fluids at this time. No pain or nausea no need for analgesics or anti-emetics. CBC with mild leukocytosis with a WBC 12.7 likely inflammatory as platelets are also slightly elevated at 628. Electrolytes stable BUN slightly elevated at 21 as stated above in the setting of lower extremity edema without evidence of severe dehydration we'll defer IV fluids. Alkaline phosphatase normal 123, amylase and lipase low. Urinalysis unremarkable. Computed tomography scan of the abdomen and pelvis without contrast image interpreted by me showing no enteric inflammation, ascites or free air, no evidence of bowel obstruction or fecal impaction. No indication for further laboratory studies were diagnostic imaging. Will discharge home in stable condition with continuation of current antidiarrheal agents from patient's primary care provider and with follow-up with his primary care provider. Case discussed with Dr. Lemos - Lab Data Result diagrams: 09/22/22 18:43 09/22/22 18:43 Lab Results 09/22/22 09/22/22 09/22/22 Range/Units 18:43 18:43 18:43 WBC 12.1 H (3.8-10.6) k/uL RBC 4.03 L (4.30-5.90) m/uL Hgb 12.7 L (13.0-17.5) gm/dL Hct 37.1 L (39.0-53.0) % MCV 92.1 (80.0-100.0) fL MCH 31.6 (25.0-35.0) pg MCHC 34.3 (31.0-37.0) g/dL RDW 11.8 (11.5-15.5) % Plt Count 628 H (150-450) k/uL MPV 7.6 Neutrophils % 62 % Lymphocytes % 25 % Monocytes % 7 % Eosinophils % 2 % Basophils % 1 % Neutrophils # 7.5 (1.3-7.7) k/uL Lymphocytes # 3.1 (1.0-4.8) k/uL Monocytes # 0.8 (0-1.0) k/uL Eosinophils # 0.3 (0-0.7) k/uL Basophils # 0.1 (0-0.2) k/uL Sodium (137-145) mmol/L Potassium (3.5-5.1) mmol/L Chloride (98-107) mmol/L Carbon Dioxide (22-30) mmol/L Anion Gap mmol/L BUN (9-20) mg/dL Creatinine (0.66-1.25) mg/dL Est GFR (CKD-EPI)AfAm (>60 ml/min/1.73 sqM) Est GFR (CKD-EPI)NonAf (>60 ml/min/1.73 sqM) Glucose (74-99) mg/dL Calcium (8.4-10.2) mg/dL Total Bilirubin (0.2-1.3) mg/dL AST (17-59) U/L ALT (4-49) U/L Alkaline Phosphatase (38-126) U/L Total Protein (6.3-8.2) g/dL Albumin (3.5-5.0) g/dL Amylase (30-110) U/L Lipase (23-300) U/L Urine Color Urine Appearance (Clear) Urine pH (5.0-8.0) Ur Specific [place] (1.001-1.035) Urine Protein (Negative) Urine Glucose (UA) (Negative) Urine Ketones (Negative) Urine Blood (Negative) Urine Nitrite (Negative) Urine Bilirubin (Negative) Urine Urobilinogen (<2.0) mg/dL Ur Leukocyte Esterase (Negative) Urine RBC (0-5) /hpf Urine WBC (0-5) /hpf Ur Squamous Epith Cells (0-4) /hpf Amorphous Sediment (None) /hpf Hyaline Casts (0-2) /lpf Urine Mucus (None) /hpf Coronavirus (PCR) Not Detected (Not Detectd) Influenza Type A RNA Not Detected (Not Detectd) Influenza Type B (PCR) Not Detected (Not Detectd) 09/22/22 09/22/22 Range/Units 18:43 20:20 WBC (3.8-10.6) k/uL RBC (4.30-5.90) m/uL Hgb (13.0-17.5) gm/dL Hct (39.0-53.0) % MCV (80.0-100.0) fL MCH (25.0-35.0) pg MCHC (31.0-37.0) g/dL RDW (11.5-15.5) % Plt Count (150-450) k/uL MPV Neutrophils % % Lymphocytes % % Monocytes % % Eosinophils % % Basophils % % Neutrophils # (1.3-7.7) k/uL Lymphocytes # (1.0-4.8) k/uL Monocytes # (0-1.0) k/uL Eosinophils # (0-0.7) k/uL Basophils # (0-0.2) k/uL Sodium 134 L (137-145) mmol/L Potassium 4.4 (3.5-5.1) mmol/L Chloride 100 (98-107) mmol/L Carbon Dioxide 29 (22-30) mmol/L Anion Gap 5 mmol/L BUN 21 H (9-20) mg/dL Creatinine 1.10 (0.66-1.25) mg/dL Est GFR (CKD-EPI)AfAm 72 (>60 ml/min/1.73 sqM) Est GFR (CKD-EPI)NonAf 62 (>60 ml/min/1.73 sqM) Glucose 107 H (74-99) mg/dL Calcium 8.5 (8.4-10.2) mg/dL Total Bilirubin 0.2 (0.2-1.3) mg/dL AST 18 (17-59) U/L ALT 14 (4-49) U/L Alkaline Phosphatase 123 (38-126) U/L Total Protein 6.0 L (6.3-8.2) g/dL Albumin 3.3 L (3.5-5.0) g/dL Amylase <30 L (30-110) U/L Lipase 18 L (23-300) U/L Urine Color Yellow Urine Appearance Clear (Clear) Urine pH 6.0 (5.0-8.0) Ur Specific [place] 1.024 (1.001-1.035) Urine Protein 1+ H (Negative) Urine Glucose (UA) Negative (Negative) Urine Ketones Trace H (Negative) Urine Blood Negative (Negative) Urine Nitrite Negative (Negative) Urine Bilirubin Negative (Negative) Urine Urobilinogen 2.0 (<2.0) mg/dL Ur Leukocyte Esterase Negative (Negative) Urine RBC 1 (0-5) /hpf Urine WBC 5 (0-5) /hpf Ur Squamous Epith Cells 1 (0-4) /hpf Amorphous Sediment Occasional H (None) /hpf Hyaline Casts 22 H (0-2) /lpf Urine Mucus Few H (None) /hpf Coronavirus (PCR) (Not Detectd) Influenza Type A RNA (Not Detectd) Influenza Type B (PCR) (Not Detectd) - Radiology Data Radiology results: report reviewed, image reviewed CT of the abdomen and pelvis without contrast impression by radiologist shows that there is a compression fracture at T12 and L1 which are not significantly different than on MR scan on 08/01/2020. No acute fracture. Multilevel moderate spondylitic changes. Minimal colonic diverticulosis without diverticulitis. Atherosclerotic vascular disease. Right middle lobe nodule with no comparison; 12 mm noncalcified located right middle lobe at the right cardiac border. Disposition Clinical Impression: Diarrhea Disposition: HOME SELF-CARE Condition: Stable Instructions (If sedation given, give patient instructions): Acute Diarrhea (ED) Additional Instructions: Please continue anti-diarrheal medications as prescribed by her primary care provider. Please follow-up with your primary care provider in regards to your continue diarrhea along with follow-up regarding incidental finding of right middle lobe lung nodule. Stay well hydrated avoiding caffeinated products. [place] diet encouraged. Please return to the Emergency Department if symptoms worsen or any other concerns. Is patient prescribed a controlled substance at d/c from ED?: No Referrals: Bhupinder Soni MD [Primary Care Provider] - 1-2 days Time of Disposition: 21:57
[2022-09-22 18:50] LABS: Basophils # (A) 0.1 k/uL (0-0.2); Basophils % (A) 1 %; Eosinophils # (A) 0.3 k/uL (0-0.7); Eosinophils % (A) 2 %; HCT 37.1 % (39.0-53.0); HGB 12.7 gm/dL (13.0-17.5); Lymphocytes # (A) 3.1 k/uL (1.0-4.8); Lymphocytes % (A) 25 %; MCH 31.6 pg (25.0-35.0); MCHC 34.3 g/dL (31.0-37.0); MCV 92.1 fL (80.0-100.0); Mean Platelet Volume 7.6; Monocytes # (A) 0.8 k/uL (0-1.0); Monocytes % (A) 7 %; Neutrophils # (A) 7.5 k/uL (1.3-7.7); Neutrophils % (A) 62 %; Platelet Count 628 k/uL (150-450); RBC 4.03 m/uL (4.30-5.90); RDW 11.8 % (11.5-15.5); WBC 12.1 k/uL (3.8-10.6)
[2022-09-22 19:01] LABS: ALT 14 U/L (4-49); AST 18 U/L (17-59); African American GFR (CKD) 72 (>60 ml/min/1.73 sqM); Albumin 3.3 g/dL (3.5-5.0); Alkaline Phosphatase 123 U/L (38-126); Amylase <30 U/L (30-110); Anion Gap 5 mmol/L; Blood Urea Nitrogen 21 mg/dL (9-20); Calcium 8.5 mg/dL (8.4-10.2); Carbon Dioxide 29 mmol/L (22-30); Chloride 100 mmol/L (98-107); Glucose 107 mg/dL (74-99); Lipase 18 U/L (23-300); Non-African American GFR(CKD) 62 (>60 ml/min/1.73 sqM); Potassium 4.4 mmol/L (3.5-5.1); Sodium 134 mmol/L (137-145); Total Bilirubin 0.2 mg/dL (0.2-1.3)
--- NOTE | 2022-09-22 20:13 | CT ---
EXAMINATION TYPE: CT abdomen pelvis wo con DATE OF EXAM: 09/22/2022 COMPARISON: None HISTORY: Diarrhea x3wks. CT DLP: 608.2 mGycm Automated exposure control for dose reduction was used. Images obtained from the diaphragm to the floor the pelvis with no contrast. Lung bases are clear of consolidation. There is a 12 mm noncalcified nodule in the right middle lobe at the right cardiac border.There is minimal subsegmental atelectasis at the lung bases. Heart size i s fairly normal. No pericardial effusion. There is hiatal hernia. Liver and spleen are intact. The bi le ducts are not dilated. No evidence of pancreatic mass. Gallbladder is intact. There is no adrenal mass. Kidneys of normal size and contour. No hydronephrosis. There are renal calc ifications that are likely vascular. Ureters are not dilated. No retroperitoneal adenopathy. Abdomina l aorta is atheromatous. Bladder distends smoothly. No inguinal hernia. No free fluid in the pelvis. No pelvic mass. Abdominal aorta is atheromatous. There is scattered sigmoid diverticula. No diverticulitis. There is no mesenteric edema. No ascites or free air. No sign of a bowel obstruction. There is lead carpenter ior fusion surgery at L5-S1 with rods and screws. There is multilevel lumbar degenerative disc space narrowing. There is 25% wedging of T12. There is 20% wedging of L1 vertebra. The bony pelvis is intac t. The hip joints are intact. There is 2 cm fat-containing umbilical hernia. IMPRESSION: There is compression fractures of T12 and L1 which are not significantly different than on MR scan of 08/01/2020. No acute fracture. Multilevel moderate spondylotic changes. Minimal colonic diverticulosis without diverticulitis. Atherosclerotic vascular disease. Right middle lobe nodule. I have no old exam to compare.
[2022-09-22 21:04] LABS: Amorphous Sediment,Urine Occasional /hpf; Appearance,Urine Clear (Clear); Bilirubin,Urine Negative (Negative); Blood,Urine Negative (Negative); Color,Urine Yellow; Glucose,Urine (UA) Negative (Negative); Hyaline Casts,Urine 22 /lpf (0-2); Ketones,Urine Trace (Negative); Leukocyte Esterase,Urine Negative (Negative); Mucus,Urine Few /hpf; Nitrite,Urine Negative (Negative); Protein,Urine 1+ (Negative); RBC,Urine 1 /hpf (0-5); Specific Gravity,Urine 1.024 (1.001-1.035); Squamous Epithelial Cell,Urine 1 /hpf (0-4); WBC,Urine 5 /hpf (0-5)
[2022-09-22 22:11] VITALS: BP 142/80; PULSE 82; TEMP 98.2
== END 2022-09-22 22:10 | disposition home or self-care (01) ==
LOC: EC 18:07
DX: R19.7 Diarrhea, unspecified (principal); I48.91 Unspecified atrial fibrillation; J44.9 Chronic obstructive pulmonary disease, unspecified; E11.9 Type 2 diabetes mellitus without complications; K21.9 Gastro-esophageal reflux disease without esophagitis; E78.5 Hyperlipidemia, unspecified; I10 Essential (primary) hypertension; Z86.16 Personal history of COVID-19; Z20.822 Contact with and (suspected) exposure to COVID-19; Z87.891 Personal history of nicotine dependence; Z88.8 Allergy status to other drugs, medicaments and biological substances; Z79.51 Long term (current) use of inhaled steroids; Z79.899 Other long term (current) drug therapy; Z79.84 Long term (current) use of oral hypoglycemic drugs
CPT/HCPCS: 36415; 74176; 80053; 81001; 82150; 83690; 85025; 87502; 87635; 99284

== ENCOUNTER 2022-09-26 20:40 | Inpatient (IN) | payer BC, MEDICARE ==
[2022-09-26 21:00] LABS: Basophils # (A) 0.1 k/uL (0-0.2); Basophils % (A) 1 %; Eosinophils # (A) 0.2 k/uL (0-0.7); Eosinophils % (A) 1 %; HCT 39.9 % (39.0-53.0); HGB 12.8 gm/dL (13.0-17.5); Hypochromasia Slight; Lymphocytes # (A) 6.5 k/uL (1.0-4.8); Lymphocytes % (A) 42 %; MCH 30.8 pg (25.0-35.0); MCHC 32.1 g/dL (31.0-37.0); Monocytes # (A) 0.7 k/uL (0-1.0); Monocytes % (A) 5 %; Neutrophils # (A) 7.5 k/uL (1.3-7.7); Neutrophils % (A) 48 %; Platelet Count 547 k/uL (150-450); RBC 4.15 m/uL (4.30-5.90); RDW 11.8 % (11.5-15.5); WBC 15.6 k/uL (3.8-10.6)
[2022-09-26] MEDS ORDERED: NOREPINEPHRINE 4 MG in SODIUM CHLORIDE 0.9% 250 ML IV ONE (21:03)
[2022-09-26 21:09] LABS: Albumin 3.2 g/dL (3.5-5.0); Calcium 8.2 mg/dL (8.4-10.2); Magnesium 2.2 mg/dL (1.6-2.3); Potassium 4.6 mmol/L (3.5-5.1); Total Bilirubin 0.5 mg/dL (0.2-1.3); Total Protein 5.8 g/dL (6.3-8.2)
--- NOTE | 2022-09-26 21:16 | XR ---
EXAMINATION TYPE: XR chest 1V DATE OF EXAM: 09/26/2022 COMPARISON: 10/27/2021 HISTORY: Chest pain TECHNIQUE: FINDINGS: The endotracheal tube is 4.5 cm from the mark. There is nasogastric tube in the stomach. There is no heart failure. Lungs are clear of consolidation. Thoracic aorta is atheromatous. There is osteopenia. IMPRESSION: No active cardiopulmonary disease. Mild pulmonary fibrosis. No adverse change.
--- NOTE | 2022-09-26 21:28 | ED ---
CPR HPI - General Chief Complaint: Cardiac Arrest/CPR Stated Complaint: Cardiac Arrest Time Seen by Provider: 09/26/22 20:52 Source: EMS Mode of arrival: EMS Limitations: no limitations - History of Present Illness Initial Comments: This is an 81-year-old male who was brought in by EMS after being found in cardiac arrest. Per EMS, the patient was found by the patient's did not breathing or responsive and she called level I and started bystander CPR. Per EMS, the patient received 2 rounds of epinephrine as well as 3 rounds of CPR and had return of spontaneous circulation. The patient was intubated in the field. No further information was obtained by EMS and the was not present initially on arrival. - Related Data Home Medications Medication Instructions Recorded Confirmed Cetirizine HCl 10 mg PO DAILY 04/28/17 09/26/22 Cyanocobalamin [Vitamin B-12] 500 mcg PO DAILY 04/28/17 09/26/22 DULoxetine HCL [Cymbalta] 60 mg PO DAILY 04/28/17 09/26/22 Fluticasone Nasal [place] [Flonase 1 spr EA NOSTRIL BID 04/28/17 09/26/22 Nasal [place]] Pregabalin [Lyrica] 50 mg PO BID 04/28/17 09/26/22 dilTIAZem HCL [Cartia Xt] 120 mg PO DAILY 04/28/17 09/26/22 hydroCHLOROthiazide 25 mg PO DAILY 04/28/17 09/26/22 traMADol HCL [Ultram] 50 mg PO BID PRN 04/28/17 09/26/22 Isosorbide Mononitrate ER [Imdur] 15 mg PO DAILY 06/05/20 09/26/22 Atorvastatin [Lipitor] 40 mg PO DAILY 10/27/21 09/26/22 Calcium/Magnesium/Zinc 1 tab PO DAILY 10/27/21 09/26/22 [Gllthck-Jpykmljpi-Jsbd Tablet] Harvey Cinnamon 2000mg 1 cap PO DAILY 10/27/21 09/26/22 Cholecalciferol [Vitamin D3 (25 25 mcg PO DAILY 10/27/21 09/26/22 Mcg = 1000 Iu)] Ginkgo Biloba 500 mg PO DAILY 10/27/21 09/26/22 Immune 24 Hour + 1 tab PO DAILY 10/27/21 09/26/22 L.acidoph,Paracasei, B.lactis 1 cap PO DAILY 10/27/21 09/26/22 [Probiotic] Multivitamins, Thera [Multivitamin 1 tab PO DAILY 10/27/21 09/26/22 (formulary)] Neuriva 1 tab PO DAILY 10/27/21 09/26/22 Pyridoxine HCl (Vitamin B6) 100 mg PO DAILY 10/27/21 09/26/22 [Vitamin B-6] Turmeric Root Extract [Turmeric] 500 mg PO DAILY 10/27/21 09/26/22 Ubidecarenone [Co Q-10] 100 mg PO DAILY 10/27/21 09/26/22 Vit C/E/Zn/Coppr/Lutein/Zeaxan 1 cap PO DAILY 10/27/21 09/26/22 [Preservision Areds 2 Softgel] Vitamin B Complex 1 cap PO DAILY 10/27/21 09/26/22 metFORMIN HCL ER [Glucophage XR] 500 mg PO DAILY 10/27/21 09/26/22 Cholestyramine (with Sugar) 4 gm PO BID 09/26/22 09/26/22 [Cholestyramine Packet] Diphenox-Atrop 2.5-0.025 mg 1 tab PO BID PRN 09/26/22 09/26/22 [Lomotil] Mirabegron [Myrbetriq] 50 mg PO DAILY 09/26/22 09/26/22 Allergies Allergy/AdvReac Type Severity Reaction Status Date / Time lisinopril AdvReac Cough Verified 09/26/22 20:43 Review of Systems ROS Statement: Those systems with pertinent positive or pertinent negative responses have been documented in the HPI. ROS Other: All systems not noted in ROS Statement are negative. Limitations: ROS unobtainable due to patients medical condition Past Medical History Past Medical History: Atrial Fibrillation, Cancer, COPD, Diabetes Mellitus, Eye Disorder, GERD/Reflux, Hyperlipidemia, Hypertension, Prostate Disorder, Sleep Apnea/CPAP/BIPAP Additional Past Medical History / Comment(s): skin cancer- squamous and pre- melanoma, macular degeneration, fell off porch and had a brain bleed from this incident- February 2016, back problems-uses walker, cane as needed. covid 14 April 2021 History of Any Multi-Drug Resistant Organisms: None Reported Past Surgical History: Back Surgery, Heart Catheterization, Hernia Repair, Joint Replacement, Orthopedic Surgery, Tonsillectomy Additional Past Surgical History / Comment(s): total rt knee replacement, reverse total rt shoulder, lt knee benign tumor removed external, internal. back surgery with laminectomy and fusion. stevie cataracts, emma fundoplication Past Anesthesia/Blood Transfusion Reactions: Family History of Problems w/ Anesthesia Additional Past Anesthesia/Blood Transfusion Reaction / Comment(s): Takes longer to wake up. Mother had problems with N&V. Past Psychological History: Anxiety Smoking Status: Former smoker Past Alcohol Use History: Daily Past Drug Use History: None Reported - Past Family History Mother Family Medical History: Cancer Additional Family Medical History / Comment(s): uterine cancer, pre-cancer colon had bowel resection Father Family Medical History: Cancer Additional Family Medical History / Comment(s): lymphoma General Exam - General Exam Comments Initial Comments: Patient intubated on arrival, status post ROSC Limitations: altered mental status Head exam: Present: atraumatic, normocephalic Eye exam: Present: normal appearance (Pupils unequal, nonreactive) Pupils: Present: irregular ENT exam: Present: normal exam, normal oropharynx Neck exam: Present: normal inspection, other (Patient in c-collar on arrival) Respiratory exam: Present: normal lung sounds bilaterally, other (Intubated) Cardiovascular Exam: Present: bradycardia, normal heart sounds GI/Abdominal exam: Present: soft, hyperactive bowel sounds, other (Multiple episodes of liquid diarrhea during evaluation and physical exam) Rectal exam: Present: normal rectal tone exam: Present: normal inspection External exam: Present: normal external exam Extremities exam: Present: normal inspection, normal capillary refill Back exam: Present: normal inspection Neurological exam: Present: other (Intubated, unresponsive) Psychiatric exam: Present: other (Intubated, unresponsive) Skin exam: Present: warm, dry Course Vital Signs 09/26/22 09/26/22 09/26/22 20:43 20:47 20:49 Pulse Rate 90 Respiratory 16 Rate Blood Pressure 76/54 O2 Sat by Pulse 100 Oximetry Fraction of 100 100 Inspired Oxygen (FIO2) 09/26/22 09/26/22 09/26/22 20:53 20:54 20:56 Pulse Rate 61 67 Respiratory 16 16 16 Rate Blood Pressure 91/42 85/52 O2 Sat by Pulse 100 100 Oximetry Fraction of Inspired Oxygen (FIO2) 09/26/22 09/26/22 09/26/22 20:59 21:13 21:21 Pulse Rate 61 60 56 L Respiratory 16 16 16 Rate Blood Pressure 85/52 69/43 88/51 O2 Sat by Pulse 100 100 100 Oximetry Fraction of Inspired Oxygen (FIO2) 09/26/22 09/26/22 09/26/22 21:26 21:41 22:12 Pulse Rate 55 L 62 58 L Respiratory 16 16 16 Rate Blood Pressure 98/49 107/52 106/62 O2 Sat by Pulse 100 100 100 Oximetry Fraction of Inspired Oxygen (FIO2) 09/26/22 09/26/22 09/26/22 22:24 22:30 22:36 Pulse Rate 60 59 L 56 L Respiratory 16 16 Rate Blood Pressure 92/43 109/62 90/54 O2 Sat by Pulse 100 100 100 Oximetry Fraction of Inspired Oxygen (FIO2) 09/26/22 09/26/22 09/26/22 22:52 22:56 23:00 Pulse Rate 63 65 66 Respiratory 16 16 16 Rate Blood Pressure 131/62 126/64 101/58 O2 Sat by Pulse 100 100 100 Oximetry Fraction of Inspired Oxygen (FIO2) 09/26/22 23:40 Pulse Rate 60 Respiratory 16 Rate Blood Pressure 95/55 O2 Sat by Pulse 100 Oximetry Fraction of Inspired Oxygen (FIO2) Procedures - Central Line Placement Right Femoral Consent Obtained: emergent situation Patient Placed on Monitor/Pulse Ox: Yes MD Prep: mask, gown, gloves Central Line Prep: Chlorhexidine scrub, sterile drapes applied Amount of Anesthesia Used (mls): 0 Ultrasound Used for Placement: Yes Central Line Lumen Inserted: triple Bloods Obtained for Lab: No Central Line Position: good blood return, all ports aspirated, flushed, capped, sutured in place with nylon Dressing Applied: Tegaderm Post Procedure X-Ray: tip of catheter in good position Patient Tolerated Procedure: well Complications: none Medical Decision Making - Medical Decision Making The patient was seen and evaluated immediately on arrival. The patient was brought into the resuscitation bay and did have return of spontaneous circulation prior to arrival. The patient had clear breath signs bilaterally was intubated successfully in the field. The patient was placed on a ventilator. The patient's blood pressure was significantly decreased on arrival and was given 2 L of normal saline fluid via 2 large-bore IVs. Laboratory workup was obtained as was a chest x-ray as well as a CT head and CT C-spine. The patient was initiated on peripheral norepinephrine while the patient was being infused with 3 L of normal saline fluid. The patient's heart rate continued to remain stable. The patient's did present emergency department and reported the patient has had diffuse watery diarrhea over the last 4 weeks with increasing weakness noted today. She stated that she heard him fall approximately 2 steps to the ground and noted that he was not breathing. The patient had CPR initiated by his approximately 30 seconds after the patient's found him as was instructed by the trimmer operator. ABG was obtained and showed a pH of 7.21, CO2 of 44 and pO2 of 332. The patient was being ventilated at the time of this evaluation. The patient continued to remain stable on IV norepinephrine. The patient was likely suffering from hypovolemic shock secondary to chronic diarrhea. EKG was obtained initially on arrival and did not show any signs of STEMI. The patient's norepinephrine was titrated down as the patient was receiving fluids and blood pressure was improving. However the patient was still intubated and Dr. Paris, was contacted for vice president of contracts consultation. He did also recommend a central line as the patient was still on norepinephrine at this time. I did agree with this and the central line was placed. The patient was accepted by his private care physician, Dr. Soni and the patient STEMI was told of these updates and plan. They're agreed to this and the patient was admitted in stable condition. - Lab Data Result diagrams: 09/26/22 20:55 09/26/22 20:55 Lab Results 09/26/22 09/26/22 09/26/22 Range/Units 20:55 20:55 20:55 WBC 15.6 H (3.8-10.6) k/uL RBC 4.15 L (4.30-5.90) m/uL Hgb 12.8 L (13.0-17.5) gm/dL Hct 39.9 (39.0-53.0) % MCV 96.0 (80.0-100.0) fL MCH 30.8 (25.0-35.0) pg MCHC 32.1 (31.0-37.0) g/dL RDW 11.8 (11.5-15.5) % Plt Count 547 H (150-450) k/uL MPV 8.0 Neutrophils % 48 % Lymphocytes % 42 % Monocytes % 5 % Eosinophils % 1 % Basophils % 1 % Neutrophils # 7.5 (1.3-7.7) k/uL Lymphocytes # 6.5 H (1.0-4.8) k/uL Monocytes # 0.7 (0-1.0) k/uL Eosinophils # 0.2 (0-0.7) k/uL Basophils # 0.1 (0-0.2) k/uL Hypochromasia Slight Sample Site ABG pH (7.35-7.45) ABG pCO2 (35-45) mmHg ABG pO2 (83-108) mmHg ABG HCO3 (21-25) mmol/L ABG Total CO2 (19-24) mmol/L ABG O2 Saturation (94-97) % ABG Base Excess mmol/L Kavin Test FiO2 % Sodium 132 L (137-145) mmol/L Potassium 4.6 (3.5-5.1) mmol/L Chloride 100 (98-107) mmol/L Carbon Dioxide 18 L (22-30) mmol/L Anion Gap 14 mmol/L BUN 24 H (9-20) mg/dL Creatinine 1.22 (0.66-1.25) mg/dL Est GFR (CKD-EPI)AfAm 63 (>60 ml/min/1.73 sqM) Est GFR (CKD-EPI)NonAf 55 (>60 ml/min/1.73 sqM) Glucose 223 H (74-99) mg/dL Lactic Ac Sepsis Rflx Plasma Lactic Acid Conner 6.7 H* (0.7-2.0) mmol/L Calcium 8.2 L (8.4-10.2) mg/dL Magnesium 2.2 (1.6-2.3) mg/dL Total Bilirubin 0.5 (0.2-1.3) mg/dL AST 67 H (17-59) U/L ALT 33 (4-49) U/L Alkaline Phosphatase 113 (38-126) U/L Total Protein 5.8 L (6.3-8.2) g/dL Albumin 3.2 L (3.5-5.0) g/dL 09/26/22 09/26/22 Range/Units 21:20 22:25 WBC (3.8-10.6) k/uL RBC (4.30-5.90) m/uL Hgb (13.0-17.5) gm/dL Hct (39.0-53.0) % MCV (80.0-100.0) fL MCH (25.0-35.0) pg MCHC (31.0-37.0) g/dL RDW (11.5-15.5) % Plt Count (150-450) k/uL MPV Neutrophils % % Lymphocytes % % Monocytes % % Eosinophils % % Basophils % % Neutrophils # (1.3-7.7) k/uL Lymphocytes # (1.0-4.8) k/uL Monocytes # (0-1.0) k/uL Eosinophils # (0-0.7) k/uL Basophils # (0-0.2) k/uL Hypochromasia Sample Site Lrad ABG pH 7.21 L (7.35-7.45) ABG pCO2 44 (35-45) mmHg ABG pO2 332 H (83-108) mmHg ABG HCO3 18 L (21-25) mmol/L ABG Total CO2 19 (19-24) mmol/L ABG O2 Saturation 98.9 H (94-97) % ABG Base Excess -10.3 mmol/L Kavin Test Yes FiO2 100 % Sodium (137-145) mmol/L Potassium (3.5-5.1) mmol/L Chloride (98-107) mmol/L Carbon Dioxide (22-30) mmol/L Anion Gap mmol/L BUN (9-20) mg/dL Creatinine (0.66-1.25) mg/dL Est GFR (CKD-EPI)AfAm (>60 ml/min/1.73 sqM) Est GFR (CKD-EPI)NonAf (>60 ml/min/1.73 sqM) Glucose (74-99) mg/dL Lactic Ac Sepsis Rflx Y Plasma Lactic Acid Conner (0.7-2.0) mmol/L Calcium (8.4-10.2) mg/dL Magnesium (1.6-2.3) mg/dL Total Bilirubin (0.2-1.3) mg/dL AST (17-59) U/L ALT (4-49) U/L Alkaline Phosphatase (38-126) U/L Total Protein (6.3-8.2) g/dL Albumin (3.5-5.0) g/dL - EKG Data -: EKG Interpreted by Me EKG Comments: An EKG was obtained and was read by myself and showed a rate of 72, QRS duration of 102 and QTC of 450. This EKG showed a an age or fibrillation without any ST segment elevations or depressions noted. Critical Care Time Critical Care Time: Yes Total Critical Care Time: 62 Disposition Clinical Impression: Hypovolemic shock Disposition: ADMITTED IP TO THIS [facility] Condition: Critical Is patient prescribed a controlled substance at d/c from ED?: No Referrals: Bhupinder Soni MD [Primary Care Provider] - 1-2 days Time of Disposition: 22:50 Decision to Admit Reason: Admit from EC Decision Date: 09/26/22 Decision Time: 22:50
[2022-09-26 22:32] LABS: ABG Base Excess -10.3 mmol/L; ABG HCO3 18 mmol/L (21-25); ABG Oxygen Saturation 98.9 % (94-97); ABG PCO2 44 mmHg (35-45); ABG PH 7.21 (7.35-7.45); ABG PO2 332 mmHg (83-108); ABG TCO2 19 mmol/L (19-24); Allen Test Performed? Yes
--- NOTE | 2022-09-26 22:32 | CT ---
EXAMINATION TYPE: CT brain tita hernandez DATE OF EXAM: 09/26/2022 COMPARISON: None HISTORY: Pt fell down stairs, cardiac arrest CT DLP: 1485.6 mGycm Automated exposure control for dose reduction was used. Images of the brain and cervical spine obtained with no contrast. There is cerebral cortical atrophy. There is moderate patchy hypodensity in the periventricular white matter. There is no mass effect or midline shift. No sign of intracranial hemorrhage. Calvarium is i ntact. There is normal aeration of the mastoid sinuses. The cervical vertebra show some straightening. There is disc space narrowing throughout the cervical spine and slight kyphotic curvature. No compression fracture. There is hypertrophic multilevel cervic al facet arthropathy. IMPRESSION: Multilevel cervical spondylotic changes. No fracture. Cerebral atrophy and chronic small vessel ischemia. No acute intracranial abnormality.
[2022-09-26] MEDS ORDERED: NALOXONE 0.4 MG/ML 1 ML VIAL IV PRN (23:01)
[2022-09-27 00:25] LABS: Glucose,Whole Blood 194 mg/dL (70-110)
[2022-09-27] MEDS: SODIUM CHLORIDE 0.9% 1,000 ML IV SCH ×3 (03:20→21:09)
[2022-09-27 05:20] LABS: Amorphous Sediment,Urine Occasional /hpf; Appearance,Urine Cloudy (Clear); Bacteria,Urine Occasional /hpf; Bilirubin,Urine Negative (Negative); Blood,Urine Small (Negative); Color,Urine Yellow; Glucose,Urine (UA) Negative (Negative); Granular Casts,Urine 3 /lpf (0); Hyaline Casts,Urine 3 /lpf (0-2); Ketones,Urine 1+ (Negative); Leukocyte Esterase,Urine Negative (Negative); Mucus,Urine Occasional /hpf; Nitrite,Urine Negative (Negative); PH, Urine 5.5 (5.0-8.0); Protein,Urine 2+ (Negative); RBC,Urine 1 /hpf (0-5); Specific Gravity,Urine 1.022 (1.001-1.035); Squamous Epithelial Cell,Urine 1 /hpf (0-4); Urobilinogen,Urine <2.0 mg/dL (<2.0); WBC,Urine 7 /hpf (0-5)
[2022-09-27 05:47] LABS: ABG Base Excess -8.2 mmol/L; ABG HCO3 19 mmol/L (21-25); ABG PCO2 46 mmHg (35-45); ABG PH 7.23 (7.35-7.45); ABG PO2 138 mmHg (83-108); ABG TCO2 21 mmol/L (19-24); Allen Test Performed? Yes
[2022-09-27 06:19] LABS: Glucose,Whole Blood 223 mg/dL (70-110)
[2022-09-27 07:05] LABS: Calcium 6.7 mg/dL (8.4-10.2); Magnesium 1.6 mg/dL (1.6-2.3); Potassium 4.9 mmol/L (3.5-5.1)
[2022-09-27 07:27] LABS: Basophils % (A) 0 %; Eosinophils % (A) 0 %; HCT 34.4 % (39.0-53.0); HGB 10.7 gm/dL (13.0-17.5); Hypochromasia Moderate; Lymphocytes # (A) 0.9 k/uL (1.0-4.8); Lymphocytes % (A) 8 %; MCH 30.3 pg (25.0-35.0); MCHC 31.2 g/dL (31.0-37.0); MCV 97.2 fL (80.0-100.0); Mean Platelet Volume 8.9; Monocytes # (A) 0.7 k/uL (0-1.0); Monocytes % (A) 6 %; Neutrophils # (A) 10.5 k/uL (1.3-7.7); Neutrophils % (A) 85 %; Platelet Count 373 k/uL (150-450); RBC 3.54 m/uL (4.30-5.90); RDW 12.2 % (11.5-15.5); WBC 12.4 k/uL (3.8-10.6)
--- NOTE | 2022-09-27 08:33 | XR ---
EXAMINATION TYPE: XR chest 1V portable DATE OF EXAM: 09/27/2022 CLINICAL HISTORY: Difficulty breathing progress study. Cardiac arrest and fall injury. TECHNIQUE: Single AP portable supine view of the chest is obtained. COMPARISON: Chest x-ray from one day earlier. FINDINGS: Stable endotracheal and orogastric tubes. Stable mild cardiomegaly with atherosclerotic and ectatic thoracic aorta. Chronic parenchymal changes bilaterally without suspicious new focal airspace opacity, pleural effusion, or pneumothorax seen. O sseous structures remain demineralized. Surgical changes right shoulder is partially imaged. IMPRESSION: Mild cardiomegaly and chronic changes without acute pulmonary process. No significant dolly nge from one day earlier.
[2022-09-27] MEDS: CHLORHEXIDINE GLUCONATE 15 ML CUP MUCOUS MEM SCH ×2 (08:51→20:57)
[2022-09-27] MEDS ORDERED: LORazepam 2 MG/ML INJ IV STA ×2 (10:13→12:07)
[2022-09-27] MEDS: PANTOPRAZOLE 40 MG/10 ML VIAL IVP SCH (10:45)
--- NOTE | 2022-09-27 11:06 | P.CNPUL ---
History of Present Illness Consult date: 09/27/22 Requesting physician: Bhupinder Soni Reason for consult: other (Cardiac arrest) Chief complaint: Cardiac arrest History of present illness: This is an 81-year-old white male with history of multiple medical problems including hypertension, chronic atrial fibrillation, COPD, type 2 diabetes, dysl ipidemia, obstructive sleep apnea syndrome, history of brain bleed secondary to previous fall off the portion. Patient had a witnessed cardiac arrest yesterday by his , and he went pulseless and noted not breathing. His initiated CPR, until EMS arrived, patient received 2 rounds of epinephrine, and 3 rounds of CPR, with return of spontaneous circulation. Patient was intubated in the [facility] by EMS, brought into the ER, he was hypotensive, placed on norepinephrine initially, patient was given significant amount of fluids as it was felt that the patient was hypovolemic. Patient had a central line placed by the ER physician, admitted to the ICU and this consult was initiated. Presently the patient is intubated and mechanically ventilated, his ventilator settings are assist control rate 16 the volume 400 FiO2 50% and PEEP of 5 ABG showed a pO2 of 138 pCO2 46 pH of 7.23, hence I recommended increasing the rate up to 20 and cutting down the FiO2 to 40%. Patient is having significant amount of facial twitching, neurological consultation is pending, EEG is pending, and I recomme nded a trial of 1 mg of Ativan just in case of the findings are consistent with ongoing seizures. Chest x-ray was reviewed, no active disease and I recommended advancing the endotracheal tube down to see him. Patient is now off norepinephrine, hemodynamically stable, however the patient is not responsive to any stimuli including painful stimuli. His pupils are nonreactive and fixed. Obviously the patient may have sustained a significant anoxic brain injury, CPR was done for about 15 minutes. Review of Systems ROS unobtainable: due to endotracheal tube Past Medical History Past Medical History: Atrial Fibrillation, Cancer, COPD, Diabetes Mellitus, Eye Disorder, GERD/Reflux, Hyperlipidemia, Hypertension, Prostate Disorder, Sleep Apnea/CPAP/BIPAP Additional Past Medical History / Comment(s): skin cancer- squamous and pre- melanoma, macular degeneration, fell off porch and had a brain bleed from this incident- February 2016, back problems-uses walker, cane as needed. covid 14 April 2021 History of Any Multi-Drug Resistant Organisms: None Reported Past Surgical History: Back Surgery, Heart Catheterization, Hernia Repair, Joint Replacement, Orthopedic Surgery, Tonsillectomy Additional Past Surgical History / Comment(s): total rt knee replacement, reverse total rt shoulder, lt knee benign tumor removed external, internal. back surgery with laminectomy and fusion. stevie cataracts, emma fundoplication Past Anesthesia/Blood Transfusion Reactions: Family History of Problems w/ Ane sthesia Additional Past Anesthesia/Blood Transfusion Reaction / Comment(s): Takes longer to wake up. Mother had problems with N&V. Past Psychological History: Anxiety Smoking Status: Former smoker Past Alcohol Use History: Daily Additional Past Alcohol Use History / Comment(s): smoked 50 years 1ppd quit 2004. Past Drug Use History: None Reported Additional Drug Use History / Comment(s): CBD drops in his coffee in the morn ing. - Past Family History Mother Family Medical History: Cancer Additional Family Medical History / Comment(s): uterine cancer, pre-cancer colon had bowel resection Father Family Medical History: Cancer Additional Family Medical History / Comment(s): lymphoma Medications and Allergies Home Medications Medication Instructions Recorded Confirmed Type Cetirizine HCl 10 mg PO DAILY 04/28/17 09/26/22 History Cyanocobalamin [Vitamin B-12] 500 mcg PO DAILY 04/28/17 09/26/22 History DULoxetine HCL [Cymbalta] 60 mg PO DAILY 04/28/17 09/26/22 History Fluticasone Nasal [place]art [Flonase 1 spr EA NOSTRIL BID 04/28/17 09/26/22 History Nasal Rampart] Pregabalin [Lyrica] 50 mg PO BID 04/28/17 09/26/22 History dilTIAZem HCL [Cartia Xt] 120 mg PO DAILY 04/28/17 09/26/22 History hydroCHLOROthiazide 25 mg PO DAILY 04/28/17 09/26/22 History traMADol HCL [Ultram] 50 mg PO BID PRN 04/28/17 09/26/22 History Isosorbide Mononitrate ER [Imdur] 15 mg PO DAILY 06/05/20 09/26/22 History Atorvastatin [Lipitor] 40 mg PO DAILY 10/27/21 09/26/22 History Calcium/Magnesium/Zinc 1 tab PO DAILY 10/27/21 09/26/22 History [Lorawbw-Yxgsxgkfn-Mznt Tablet] Elwell Cinnamon 2000mg 1 cap PO DAILY 10/27/21 09/26/22 History Cholecalciferol [Vitamin D3 (25 25 mcg PO DAILY 10/27/21 09/26/22 History Mcg = 1000 Iu)] Ginkgo Biloba 500 mg PO DAILY 10/27/21 09/26/22 History Immune 24 Hour + 1 tab PO DAILY 10/27/21 09/26/22 History L.acidoph,Paracasei, B.lactis 1 cap PO DAILY 10/27/21 09/26/22 History [Probiotic] Multivitamins, Thera [Multivitamin 1 tab PO DAILY 10/27/21 09/26/22 History (formulary)] Neuriva 1 tab PO DAILY 10/27/21 09/26/22 History Pyridoxine HCl (Vitamin B6) 100 mg PO DAILY 10/27/21 09/26/22 History [Vitamin B-6] Turmeric Root Extract [Turmeric] 500 mg PO DAILY 10/27/21 09/26/22 History Ubidecarenone [Co Q-10] 100 mg PO DAILY 10/27/21 09/26/22 History Vit C/E/Zn/Coppr/Lutein/Zeaxan 1 cap PO DAILY 10/27/21 09/26/22 History [Preservision Areds 2 Softgel] Vitamin B Complex 1 cap PO DAILY 10/27/21 09/26/22 History metFORMIN HCL ER [Glucophage XR] 500 mg PO DAILY 10/27/21 09/26/22 History Cholestyramine (with Sugar) 4 gm PO BID 09/26/22 09/26/22 History [Cholestyramine Packet] Diphenox-Atrop 2.5-0.025 mg 1 tab PO BID PRN 09/26/22 09/26/22 History [Lomotil] Mirabegron [Myrbetriq] 50 mg PO DAILY 09/26/22 09/26/22 History Allergies Allergy/AdvReac Type Severity Reaction Status Date / Time lisinopril AdvReac Cough Verified 09/26/22 20:43 Physical Exam Vitals: Vital Signs Temp Pulse Resp BP Pulse Ox FiO2 09/27/22 10:30 73 20 91/50 96 09/27/22 10:00 71 16 92/49 97 09/27/22 09:30 70 16 94/51 97 09/27/22 09:00 78 19 99/49 97 50 09/27/22 08:30 71 17 104/54 97 09/27/22 08:00 98.6 F 72 17 93/59 97 50 09/27/22 07:30 70 18 97/59 50 09/27/22 07:00 70 17 98/55 97 09/27/22 06:45 71 16 98/55 97 02 06:30 69 17 107/60 97 09/27/22 06:15 67 17 107/60 98 09/27/22 06:00 97.3 F L 72 18 116/62 97 09/27/22 05:45 74 16 100/62 97 09/27/22 05:30 70 16 102/62 97 09/27/22 05:15 69 16 103/58 97 09/27/22 05:00 67 17 107/64 97 09/27/22 04:45 66 16 98/57 97 09/27/22 04:30 64 16 93/58 96 09/27/22 04:15 65 16 97/56 97 09/27/22 04:00 96.0 F L 64 17 95/62 97 50 09/27/22 03:45 63 16 84/52 09/27/22 03:30 61 16 96/60 09/27/22 03:15 63 16 107/58 97 50 09/27/22 03:10 62 16 107/58 98 09/27/22 03:00 60 16 98/65 98 09/27/22 02:50 60 17 98/65 98 09/27/22 02:40 63 16 109/71 99 02 02:30 62 16 109/62 99 02 02:20 64 16 109/62 98 02 02:10 62 16 112/59 98 02 02:00 64 16 111/72 98 02 01:50 63 16 111/72 99 02 01:40 66 16 131/78 99 09/27/22 01:30 63 16 133/67 98 02 01:20 65 16 133/67 99 02 01:10 64 16 129/77 99 09/27/22 01:00 65 16 114/75 99 09/27/22 00:50 65 16 114/75 99 09/27/22 00:40 68 16 142/74 99 09/27/22 00:30 96.0 F L 68 25 H 143/84 100 50 09/27/22 00:24 24 09/27/22 00:09 50 09/27/22 00:00 50 09/26/22 23:40 60 16 95/55 100 09/26/22 23:00 66 16 101/58 100 09/26/22 22:56 65 16 126/64 100 09/26/22 22:52 63 16 131/62 100 09/26/22 22:36 56 L 16 90/54 100 09/26/22 22:30 59 L 16 109/62 100 09/26/22 22:24 60 92/43 100 09/26/22 22:12 58 L 16 106/62 100 09/26/22 21:41 62 16 107/52 100 09/26/22 21:26 55 L 16 98/49 100 09/26/22 21:21 56 L 16 88/51 100 09/26/22 21:13 60 16 69/43 100 09/26/22 20:59 61 16 85/52 100 09/26/22 20:56 67 16 85/52 100 09/26/22 20:54 16 09/26/22 20:53 61 16 91/42 100 09/26/22 20:49 100 09/26/22 20:47 100 09/26/22 20:43 90 16 76/54 100 Intake and Output 09/26/22 09/27/22 09/27/22 22:59 06:59 14:59 Intake Total 38.897 725.024 400 Output Total 30 5 Balance 38.897 695.024 395 Intake: IV 700 400 Sodium Chloride 0.9% 1, 700 400 000 ml @ 100 mls/hr IV . Q10H [facility] Rx#:[id number] Intake, IV Titration 38.897 25.024 Amount Norepinephrine 4 mg In 38.897 25.024 Sodium Chloride 0.9% 250 ml @ 0.03 MCG/KG/MIN 8. 295 mls/hr IV .Q24H [facility] Rx#:[id number] Output: Urine 30 5 Other: Voiding Method Indwelling Catheter Indwelling Catheter Weight 80 kg 78.1 kg Physical Exam: Revealed an 81-year-old white male intubated mechanically ventilated, in no distress. Head: Atraumatic, normocephalic. HEENT:[Neck is supple.] [No neck masses.] [No thyromegaly.] [No JVD.] Pupils are fixed, nonreactive, patient has endotracheal tube in place, and orogastric tube in place. Chest: [Symmetrical chest expansion diminished breath sounds at the bases no crackles or rhonchi or wheezes Cardiac Exam: Irregular irregular rhythm, no S3 gallop, no murmur, Abdomen: [Soft, nontender, no megaly, no rebound, no guarding, normal bowel sounds.] Extremities: [No clubbing, no edema, no cyanosis.] Neurological Exam: Patient is unresponsive to any verbal or painful stimuli. Noted to have significant twitching of the face and periorbital area, pupils nonreactive. No spontaneous movement noted whatsoever Psychiatric: Could not assess Results - Laboratory Findings CBC and BMP: 09/27/22 06:07 09/27/22 06:07 ABG ABG pH 7.23 (7.35-7.45) L 09/27/22 05:38 ABG pCO2 46 mmHg (35-45) H 09/27/22 05:38 ABG pO2 138 mmHg (83-108) H 09/27/22 05:38 ABG O2 Saturation 98.0 % (94-97) H 09/27/22 05:38 Abnormal lab findings: Abnormal Labs 09/26/22 09/26/22 09/26/22 20:55 20:55 20:55 WBC 15.6 H RBC 4.15 L Hgb 12.8 L Hct Plt Count 547 H Neutrophils # Lymphocytes # 6.5 H ABG pH ABG pCO2 ABG pO2 ABG HCO3 ABG O2 Saturation Sodium 132 L Chloride Carbon Dioxide 18 L BUN 24 H Creatinine Glucose 223 H POC Glucose (mg/dL) Plasma Lactic Acid Conner 6.7 H* Calcium 8.2 L AST 67 H Total Protein 5.8 L Albumin 3.2 L Urine Protein Urine Ketones Urine Blood Urine WBC Amorphous Sediment Urine Bacteria Hyaline Casts Urine Mucus 09/26/22 09/27/22 09/27/22 22:25 00:23 04:49 WBC RBC Hgb Hct Plt Count Neutrophils # Lymphocytes # ABG pH 7.21 L ABG pCO2 ABG pO2 332 H ABG HCO3 18 L ABG O2 Saturation 98.9 H Sodium Chloride Carbon Dioxide BUN Creatinine Glucose POC Glucose (mg/dL) 194 H Plasma Lactic Acid Conner Calcium AST Total Protein Albumin Urine Protein 2+ H Urine Ketones 1+ H Urine Blood Small H Urine WBC 7 H Amorphous Sediment Occasional H Urine Bacteria Occasional H Hyaline Casts 3 H Urine Mucus Occasional H 09/27/22 09/27/22 09/27/22 05:38 06:07 06:07 WBC 12.4 H RBC 3.54 L Hgb 10.7 L Hct 34.4 L Plt Count Neutrophils # 10.5 H Lymphocytes # 0.9 L ABG pH 7.23 L ABG pCO2 46 H ABG pO2 138 H ABG HCO3 19 L ABG O2 Saturation 98.0 H Sodium 135 L Chloride 111 H Carbon Dioxide 16 L BUN 26 H Creatinine 1.32 H Glucose 207 H POC Glucose (mg/dL) Plasma Lactic Acid Conner Calcium 6.7 L AST Total Protein Albumin Urine Protein Urine Ketones Urine Blood Urine WBC Amorphous Sediment Urine Bacteria Hyaline Casts Urine Mucus 09/27/22 06:18 WBC RBC Hgb Hct Plt Count Neutrophils # Lymphocytes # ABG pH ABG pCO2 ABG pO2 ABG HCO3 ABG O2 Saturation Sodium Chloride Carbon Dioxide BUN Creatinine Glucose POC Glucose (mg/dL) 223 H Plasma Lactic Acid Conner Calcium AST Total Protein Albumin Urine Protein Urine Ketones Urine Blood Urine WBC Amorphous Sediment Urine Bacteria Hyaline Casts Urine Mucus - Diagnostic Findings Chest x-ray: image reviewed (As noted in HPI) Additional studies: CT of the head and cervical spine showed cerebral atrophy and chronic small vessel ischemia, multilevel cervical spondylitic changes. No fracture. Assessment and Plan Assessment: Impression: Cardiac arrest Acute hypoxic respiratory failure secondary to cardiac arrest Suspect anoxic brain injury Chronic atrial fibrillation History of benign essential hypertension Dyslipidemia History of obstructive sleep apnea syndrome History of previous head injury and intercerebral bleed. Recent history of gastroenteritis and hypovolemia on presentation Recommendation: Continue ventilatory support, vent setting changes were made. Hemodynamic support if necessary. Continue IV fluids Neurological consultation as the patient may have severe anoxic brain injury EEG, results are pending GI and DVT prophylaxis. Nutritional support Cardiac consultation. Patient is critically ill, We will continue to follow prognosis is extremely poor Time with Patient: Greater than 30
[2022-09-27 11:13] LABS: Glucose,Whole Blood 180 mg/dL (70-110)
[2022-09-27] MEDS ORDERED: PHENYTOIN SODIUM INJ 1,500 MG in SODIUM CHLORIDE 0.9% 100 ML IVPB STA (12:08)
--- NOTE | 2022-09-27 13:04 | P.CNNES ---
History of Present Illness Consult date: 09/27/22 Requesting physician: Robinson Paris Reason for Consult: Frequent facial twitching, no response to pain, unequal pupils, History of Present Illness: Patient is a 81-year-old male came to the hospital by ambulance yesterday at 8:40 PM for cardiac arrest. Patient's family was not available at the time of this interview. Per EMS flow sheet, they were contacted at 7:56 PM. When they arrived, found patient pulseless and apneic in garage with fire department personnel performing CPR. Fire department had applied the AED prior to EMS arrival. CPR was continued utilizing Yuri device and OPA was placed. Family head mentioned that they had been walking into the house and the patient collapsed and fell down 2 steps to the garage floor. Family had initiated CPR prior to fire Department arrival. Patient was intubated patient received 2 doses of epinephrine after which patient had a strong palpable pulse at 8:19 PM. Patient remained apneic and ventilation was continued.. EKG showed atrial fibrillation. It appears downtime was 23 minutes. Patient's blood test shows the BBC 15.6, hemoglobin 12.8, platelets 547. Sodium 132 potassium 4.6, BUN 24 creatinine 1.22. Lactate was 6.7. AST 67, ALT 33. UA negative. CT head showed cerebral atrophy and chronic small vessel ischemic change. I personally reviewed CT head, agree with the findings. There is small vessel disease. No acute process. CT cervical spine negative. EKG shows atrial fibrillation. Chest x-ray showed mild cardiomegaly and chronic changes without acute process. Patient has been having frequent myoclonic twitching of his facial region. Patient has unequal pupil, right larger than the left. Patient's home medications include diltiazem, pregabalin, Cymbalta, tramadol 50 mg twice a day, HCTZ, metformin, Lipitor 40 mg, Myrbetriq. Review of Systems Per family report, patient has diarrhea for last 4 weeks. ROS unobtainable: due to endotracheal tube, due to mental status Past Medical History Past Medical History: Atrial Fibrillation, Cancer, COPD, Diabetes Mellitus, Eye Disorder, GERD/Reflux, Hyperlipidemia, Hypertension, Prostate Disorder, Sleep Apnea/CPAP/BIPAP Additional Past Medical History / Comment(s): skin cancer- squamous and pre- melanoma, macular degeneration, fell off porch and had a brain bleed from this incident- February 2016, back problems-uses walker, cane as needed. covid 14 April 2021 History of Any Multi-Drug Resistant Organisms: None Reported Past Surgical History: Back Surgery, Heart Catheterization, Hernia Repair, Joint Replacement, Orthopedic Surgery, Tonsillectomy Additional Past Surgical History / Comment(s): total rt knee replacement, reverse total rt shoulder, lt knee benign tumor removed external, internal. back surgery with laminectomy and fusion. stevie cataracts, emma fundoplication Past Anesthesia/Blood Transfusion Reactions: Family History of Problems w/ Anesthesia Additional Past Anesthesia/Blood Transfusion Reaction / Comment(s): Takes longer to wake up. Mother had problems with N&V. Past Psychological History: Anxiety Smoking Status: Former smoker Past Alcohol Use History: Daily Additional Past Alcohol Use History / Comment(s): smoked 50 years 1ppd quit 2004. Past Drug Use History: None Reported Additional Drug Use History / Comment(s): CBD drops in his coffee in the morning. - Past Family History Mother Family Medical History: Cancer Additional Family Medical History / Comment(s): uterine cancer, pre-cancer colon had bowel resection Father Family Medical History: Cancer Additional Family Medical History / Comment(s): lymphoma Medications and Allergies Home Medications Medication Instructions Recorded Confirmed Type Cetirizine HCl 10 mg PO DAILY 04/28/17 09/26/22 History Cyanocobalamin [Vitamin B-12] 500 mcg PO DAILY 04/28/17 09/26/22 History DULoxetine HCL [Cymbalta] 60 mg PO DAILY 04/28/17 09/26/22 History Fluticasone Nasal [place] [Flonase 1 spr EA NOSTRIL BID 04/28/17 09/26/22 History Nasal [place]] Pregabalin [Lyrica] 50 mg PO BID 04/28/17 09/26/22 History dilTIAZem HCL [Cartia Xt] 120 mg PO DAILY 04/28/17 09/26/22 History hydroCHLOROthiazide 25 mg PO DAILY 04/28/17 09/26/22 History traMADol HCL [Ultram] 50 mg PO BID PRN 04/28/17 09/26/22 History Isosorbide Mononitrate ER [Imdur] 15 mg PO DAILY 06/05/20 09/26/22 History Atorvastatin [Lipitor] 40 mg PO DAILY 10/27/21 09/26/22 History Calcium/Magnesium/Zinc 1 tab PO DAILY 10/27/21 09/26/22 History [Waiucej-[place]-Riqv Tablet] [place] Cinnamon 2000mg 1 cap PO DAILY 10/27/21 09/26/22 History Cholecalciferol [Vitamin D3 (25 25 mcg PO DAILY 10/27/21 09/26/22 History Mcg = 1000 Iu)] Ginkgo Biloba 500 mg PO DAILY 10/27/21 09/26/22 History Immune 24 Hour + 1 tab PO DAILY 10/27/21 09/26/22 History L.acidoph,Paracasei, B.lactis 1 cap PO DAILY 10/27/21 09/26/22 History [Probiotic] Multivitamins, Thera [Multivitamin 1 tab PO DAILY 10/27/21 09/26/22 History (formulary)] Neuriva 1 tab PO DAILY 10/27/21 09/26/22 History Pyridoxine HCl (Vitamin B6) 100 mg PO DAILY 10/27/21 09/26/22 History [Vitamin B-6] Turmeric Root Extract [Turmeric] 500 mg PO DAILY 10/27/21 09/26/22 History Ubidecarenone [Co Q-10] 100 mg PO DAILY 10/27/21 09/26/22 History Vit C/E/Zn/Coppr/Lutein/Zeaxan 1 cap PO DAILY 10/27/21 09/26/22 History [Preservision Areds 2 Softgel] Vitamin B Complex 1 cap PO DAILY 10/27/21 09/26/22 History metFORMIN HCL ER [Glucophage XR] 500 mg PO DAILY 10/27/21 09/26/22 History Cholestyramine (with Sugar) 4 gm PO BID 09/26/22 09/26/22 History [Cholestyramine Packet] Diphenox-Atrop 2.5-0.025 mg 1 tab PO BID PRN 09/26/22 09/26/22 History [Lomotil] Mirabegron [Myrbetriq] 50 mg PO DAILY 09/26/22 09/26/22 History Allergies Allergy/AdvReac Type Severity Reaction Status Date / Time lisinopril AdvReac Cough Verified 09/26/22 20:43 Physical Examination - Vital Signs Vital Signs: Vital Signs Temp Pulse Resp BP Pulse Ox FiO2 09/27/22 09:00 78 19 99/49 97 50 09/27/22 08:30 71 17 104/54 97 09/27/22 08:00 98.6 F 72 17 93/59 97 50 09/27/22 07:30 70 18 97/59 50 09/27/22 07:00 70 17 98/55 97 09/27/22 06:45 71 16 98/55 97 09/27/22 06:30 69 17 107/60 97 09/27/22 06:15 67 17 107/60 98 09/27/22 06:00 97.3 F L 72 18 116/62 97 09/27/22 05:45 74 16 100/62 97 09/27/22 05:30 70 16 102/62 97 09/27/22 05:15 69 16 103/58 97 09/27/22 05:00 67 17 107/64 97 09/27/22 04:45 66 16 98/57 97 09/27/22 04:30 64 16 93/58 96 09/27/22 04:15 65 16 97/56 97 09/27/22 04:00 96.0 F L 64 17 95/62 97 50 09/27/22 03:45 63 16 84/52 09/27/22 03:30 61 16 96/60 09/27/22 03:15 63 16 107/58 97 50 09/27/22 03:10 62 16 107/58 98 09/27/22 03:00 60 16 98/65 98 09/27/22 02:50 60 17 98/65 98 09/27/22 02:40 63 16 109/71 99 09/27/22 02:30 62 16 109/62 99 02 02:20 64 16 109/62 98 09/27/22 02:10 62 16 112/59 98 09/27/22 02:00 64 16 111/72 98 02 01:50 63 16 111/72 99 09/27/22 01:40 66 16 131/78 99 02 01:30 63 16 133/67 98 02 01:20 65 16 133/67 99 09/27/22 01:10 64 16 129/77 99 09/27/22 01:00 65 16 114/75 99 09/27/22 00:50 65 16 114/75 99 09/27/22 00:40 68 16 142/74 99 09/27/22 00:30 96.0 F L 68 25 H 143/84 100 50 09/27/22 00:24 24 09/27/22 00:09 50 09/27/22 00:00 50 09/26/22 23:40 60 16 95/55 100 09/26/22 23:00 66 16 101/58 100 09/26/22 22:56 65 16 126/64 100 09/26/22 22:52 63 16 131/62 100 09/26/22 22:36 56 L 16 90/54 100 09/26/22 22:30 59 L 16 109/62 100 09/26/22 22:24 60 92/43 100 09/26/22 22:12 58 L 16 106/62 100 09/26/22 21:41 62 16 107/52 100 09/26/22 21:26 55 L 16 98/49 100 09/26/22 21:21 56 L 16 88/51 100 09/26/22 21:13 60 16 69/43 100 09/26/22 20:59 61 16 85/52 100 09/26/22 20:56 67 16 85/52 100 09/26/22 20:54 16 09/26/22 20:53 61 16 91/42 100 09/26/22 20:49 100 09/26/22 20:47 100 09/26/22 20:43 90 16 76/54 100 Intake and Output 09/26/22 09/27/22 09/27/22 22:59 06:59 14:59 Intake Total 38.897 725.024 300 Output Total 30 5 Balance 38.897 695.024 295 Intake: IV 700 300 Sodium Chloride 0.9% 1, 700 300 000 ml @ 100 mls/hr IV . Q10H [facility] Rx#:[id number] Intake, IV Titration 38.897 25.024 Amount Norepinephrine 4 mg In 38.897 25.024 Sodium Chloride 0.9% 250 ml @ 0.03 MCG/KG/MIN 8. 295 mls/hr IV .Q24H [facility] Rx#:[id number] Output: Urine 30 5 Other: Voiding Method Indwelling Catheter Indwelling Catheter Weight 80 kg 78.1 kg Patient is an elderly male, who is intubated, on Levophed. Patient is comatose on mechanical ventilation. GCS is 3. On cranial nerve examination, pupils are unequal, right is about 4 mm, left is 2-3 mm, and the left is sluggishly reacting if at all. Right is nonreactive. Oculocephalics are absent, corneals absent. Per nurse report, the gag and cough reflexes are absent. Patient is not breathing over the ventilator, confirmed by respiratory therapist. Patient is having frequent myoclonic twitching of his facial region. No seizure-like activity is noted involving the extremities, only the facial region. On muscle strength testing, muscle strength cannot be tested. Deep tendon reflexes are absent and plantars are flat. Sensory to painful stimuli, patient did not respond. Cerebellar cannot be assessed. Tone is decreased and bulk of muscles normal. Gait not able to be checked. On general examination, there is no carotid bruit or murmur, S1-S2 audible. Chest is clear on consultation. Abdomen is soft nontender. No organomegaly, bowel sounds present. Peripheral pulses are present. No edema. Patient has some mottling of the feet. Results - Laboratory Findings CBC and BMP: 09/27/22 06:07 09/27/22 06:07 Abnormal Lab Findings: Abnormal Labs 09/26/22 09/26/22 09/26/22 20:55 20:55 20:55 WBC 15.6 H RBC 4.15 L Hgb 12.8 L Hct Plt Count 547 H Neutrophils # Lymphocytes # 6.5 H ABG pH ABG pCO2 ABG pO2 ABG HCO3 ABG O2 Saturation Sodium 132 L Chloride Carbon Dioxide 18 L BUN 24 H Creatinine Glucose 223 H POC Glucose (mg/dL) Plasma Lactic Acid Conner 6.7 H* Calcium 8.2 L AST 67 H Total Protein 5.8 L Albumin 3.2 L Urine Protein Urine Ketones Urine Blood Urine WBC Amorphous Sediment Urine Bacteria Hyaline Casts Urine Mucus 09/26/22 09/27/22 09/27/22 22:25 00:23 04:49 WBC RBC Hgb Hct Plt Count Neutrophils # Lymphocytes # ABG pH 7.21 L ABG pCO2 ABG pO2 332 H ABG HCO3 18 L ABG O2 Saturation 98.9 H Sodium Chloride Carbon Dioxide BUN Creatinine Glucose POC Glucose (mg/dL) 194 H Plasma Lactic Acid Conner Calcium AST Total Protein Albumin Urine Protein 2+ H Urine Ketones 1+ H Urine Blood Small H Urine WBC 7 H Amorphous Sediment Occasional H Urine Bacteria Occasional H Hyaline Casts 3 H Urine Mucus Occasional H 09/27/22 09/27/22 09/27/22 05:38 06:07 06:07 WBC 12.4 H RBC 3.54 L Hgb 10.7 L Hct 34.4 L Plt Count Neutrophils # 10.5 H Lymphocytes # 0.9 L ABG pH 7.23 L ABG pCO2 46 H ABG pO2 138 H ABG HCO3 19 L ABG O2 Saturation 98.0 H Sodium 135 L Chloride 111 H Carbon Dioxide 16 L BUN 26 H Creatinine 1.32 H Glucose 207 H POC Glucose (mg/dL) Plasma Lactic Acid Conner Calcium 6.7 L AST Total Protein Albumin Urine Protein Urine Ketones Urine Blood Urine WBC Amorphous Sediment Urine Bacteria Hyaline Casts Urine Mucus 09/27/22 06:18 WBC RBC Hgb Hct Plt Count Neutrophils # Lymphocytes # ABG pH ABG pCO2 ABG pO2 ABG HCO3 ABG O2 Saturation Sodium Chloride Carbon Dioxide BUN Creatinine Glucose POC Glucose (mg/dL) 223 H Plasma Lactic Acid Conner Calcium AST Total Protein Albumin Urine Protein Urine Ketones Urine Blood Urine WBC Amorphous Sediment Urine Bacteria Hyaline Casts Urine Mucus Assessment and Plan Assessment: * Status post cardiac arrest with prolonged downtime of 23 minutes. * Myoclonic twitching of the face. Possible seizure activity. * EEG with burst suppressed pattern. * Anisocoria, uncertain new or old finding. CT head showed no brainstem compression. * Hypertension * Hyperlipidemia * Diabetes * Atrial fibrillation * X tobacco use Plan: * EEG revealed bursts suppressed pattern. The suppressed pattern consists of isoelectric EEG, with intermittent burst of high amplitude 5 Hz generalized sharp waves lasting for 0.25-1 second intermittently. * Patient was given Ativan. * Patient will be loaded with Dilantin 1500 mg 1 dose. * Patient will be maintained on Keppra 1000 mg twice a day. * Prognosis appears poor based upon the extent of the downtime, current neurological examination as well as EEG findings. * Discussed with patient's nurse in detail. Thank you for the consult. Addendum 5:30 PM: Patient's seizure like activity resolved with above treatment por nursing report. Patient continues to be comatose. Patient's family arrived and I was able to speak to patient's and [id number]. Informed me that patient went to the garage to get something from the refrigerator, when she heard the cans fall on the ground. She went in and he was unconscious, pulseless. She started CPR, called 911 at the same t [place]. Police department came very fast, and shortly after EMS arrived. Patient's mentioned that he has been having diarrhea for last 4 weeks. She also mentioned that patients anisocoria is chronic in nature since after cataract surgery. Patient is not showing any clinical improvement at this time. Still some low amplitude facial twitching. Check stat Dilantin level. May have to rebolus, at the levels are subtherapeutic. Continue Keppra 1000 mg twice a day. Consider repeating EEG in the morning. Patient has atrial fibrillation, but not a candidate for anticoagulation because of recent cardiac arrest with prolonged down time. Time with Patient: Greater than 30
[2022-09-27] MEDS: levETIRAcetam IV 1,000 MG in SALINE 1 100ML.BAG IVPB SCH ×2 (13:29→20:58)
[2022-09-27] MEDS: HEPARIN SODIUM,PORCINE/PF 5,000 UNIT/0.5 ML SYRINGE SQ SCH ×2 (16:13→23:50)
[2022-09-27 16:40] LABS: Glucose,Whole Blood 192 mg/dL (70-110)
--- NOTE | 2022-09-27 17:48 | P.HPIM ---
Past Medical History Past Medical History: Atrial Fibrillation, Cancer, COPD, Diabetes Mellitus, Eye Disorder, GERD/Reflux, Hyperlipidemia, Hypertension, Prostate Disorder, Sleep Apnea/CPAP/BIPAP Additional Past Medical History / Comment(s): skin cancer- squamous and pre- melanoma, macular degeneration, fell off porch and had a brain bleed from this incident- February 2016, back problems-uses walker, cane as needed. covid 14 April 2021 History of Any Multi-Drug Resistant Organisms: None Reported Past Surgical History: Back Surgery, Heart Catheterization, Hernia Repair, Joint Replacement, Orthopedic Surgery, Tonsillectomy Additional Past Surgical History / Comment(s): total rt knee replacement, reverse total rt shoulder, lt knee benign tumor removed external, internal. back surgery with laminectomy and fusion. stevie cataracts, emma fundoplication Past Anesthesia/Blood Transfusion Reactions: Family History of Problems w/ Anesthesia Additional Past Anesthesia/Blood Transfusion Reaction / Comment(s): Takes longer to wake up. Mother had problems with N&V. Past Psychological History: Anxiety Smoking Status: Former smoker Past Alcohol Use History: Daily Additional Past Alcohol Use History / Comment(s): smoked 50 years 1ppd quit 2004. Past Drug Use History: None Reported Additional Drug Use History / Comment(s): CBD drops in his coffee in the morning. - Past Family History Mother Family Medical History: Cancer Additional Family Medical History / Comment(s): uterine cancer, pre-cancer colon had bowel resection Father Family Medical History: Cancer Additional Family Medical History / Comment(s): lymphoma Medications and Allergies Home Medications Medication Instructions Recorded Confirmed Type Cetirizine HCl 10 mg PO DAILY 04/28/17 09/26/22 History Cyanocobalamin [Vitamin B-12] 500 mcg PO DAILY 04/28/17 09/26/22 History DULoxetine HCL [Cymbalta] 60 mg PO DAILY 04/28/17 09/26/22 History Fluticasone Nasal Challenge [Flonase 1 spr EA NOSTRIL BID 04/28/17 09/26/22 History Nasal Challenge] Pregabalin [Lyrica] 50 mg PO BID 04/28/17 09/26/22 History dilTIAZem HCL [Cartia Xt] 120 mg PO DAILY 04/28/17 09/26/22 History hydroCHLOROthiazide 25 mg PO DAILY 04/28/17 09/26/22 History traMADol HCL [Ultram] 50 mg PO BID PRN 04/28/17 09/26/22 History Isosorbide Mononitrate ER [Imdur] 15 mg PO DAILY 06/05/20 09/26/22 History Atorvastatin [Lipitor] 40 mg PO DAILY 10/27/21 09/26/22 History Calcium/Magnesium/Zinc 1 tab PO DAILY 10/27/21 09/26/22 History [Awvtizl-Cpyfycraf-Ojpp Tablet] [place] Cinnamon 2000mg 1 cap PO DAILY 10/27/21 09/26/22 History Cholecalciferol [Vitamin D3 (25 25 mcg PO DAILY 10/27/21 09/26/22 History Mcg = 1000 Iu)] Ginkgo Biloba 500 mg PO DAILY 10/27/21 09/26/22 History Immune 24 Hour + 1 tab PO DAILY 10/27/21 09/26/22 History L.acidoph,Paracasei, B.lactis 1 cap PO DAILY 10/27/21 09/26/22 History [Probiotic] Multivitamins, Thera [Multivitamin 1 tab PO DAILY 10/27/21 09/26/22 History (formulary)] Neuriva 1 tab PO DAILY 10/27/21 09/26/22 History Pyridoxine HCl (Vitamin B6) 100 mg PO DAILY 10/27/21 09/26/22 History [Vitamin B-6] Turmeric Root Extract [Turmeric] 500 mg PO DAILY 10/27/21 09/26/22 History Ubidecarenone [Co Q-10] 100 mg PO DAILY 10/27/21 09/26/22 History Vit C/E/Zn/Coppr/Lutein/Zeaxan 1 cap PO DAILY 10/27/21 09/26/22 History [Preservision Areds 2 Softgel] Vitamin B Complex 1 cap PO DAILY 10/27/21 09/26/22 History metFORMIN HCL ER [Glucophage XR] 500 mg PO DAILY 10/27/21 09/26/22 History Cholestyramine (with Sugar) 4 gm PO BID 09/26/22 09/26/22 History [Cholestyramine Packet] Diphenox-Atrop 2.5-0.025 mg 1 tab PO BID PRN 09/26/22 09/26/22 History [Lomotil] Mirabegron [Myrbetriq] 50 mg PO DAILY 09/26/22 09/26/22 History Allergies Allergy/AdvReac Type Severity Reaction Status Date / Time lisinopril AdvReac Cough Verified 09/26/22 20:43 Physical Exam Vitals: Vital Signs Temp Pulse Resp BP Pulse Ox FiO2 09/27/22 16:00 99.6 F 53 L 20 89/55 94 L 40 09/27/22 15:30 52 L 20 88/48 94 L 09/27/22 15:00 51 L 20 84/46 94 L 40 09/27/22 14:30 56 L 20 89/45 94 L 09/27/22 14:00 48 L 20 103/55 94 L 09/27/22 13:45 60 20 103/55 96 09/27/22 13:30 74 20 88/46 09/27/22 13:00 72 20 87/46 96 09/27/22 12:30 72 20 112/56 95 09/27/22 12:00 98.9 F 75 20 112/60 97 09/27/22 11:41 40 09/27/22 11:32 50 09/27/22 11:31 50 09/27/22 11:30 75 20 86/49 96 09/27/22 11:15 73 20 86/49 96 09/27/22 11:00 73 20 92/54 96 09/27/22 10:30 73 20 91/50 96 09/27/22 10:00 71 16 92/49 97 09/27/22 09:30 70 16 94/51 97 09/27/22 09:00 78 19 99/49 97 50 09/27/22 08:30 71 17 104/54 97 09/27/22 08:00 98.6 F 72 17 93/59 97 50 09/27/22 07:30 70 18 97/59 50 09/27/22 07:00 70 17 98/55 97 09/27/22 06:45 71 16 98/55 97 09/27/22 06:30 69 17 107/60 97 09/27/22 06:15 67 17 107/60 98 09/27/22 06:00 97.3 F L 72 18 116/62 97 09/27/22 05:45 74 16 100/62 97 09/27/22 05:30 70 16 102/62 97 09/27/22 05:15 69 16 103/58 97 09/27/22 05:00 67 17 107/64 97 09/27/22 04:45 66 16 98/57 97 09/27/22 04:30 64 16 93/58 96 09/27/22 04:15 65 16 97/56 97 09/27/22 04:00 96.0 F L 64 17 95/62 97 50 09/27/22 03:45 63 16 84/52 09/27/22 03:30 61 16 96/60 09/27/22 03:15 63 16 107/58 97 50 09/27/22 03:10 62 16 107/58 98 09/27/22 03:00 60 16 98/65 98 09/27/22 02:50 60 17 98/65 98 09/27/22 02:40 63 16 109/71 99 09/27/22 02:30 62 16 109/62 99 09/27/22 02:20 64 16 109/62 98 09/27/22 02:10 62 16 112/59 98 09/27/22 02:00 64 16 111/72 98 09/27/22 01:50 63 16 111/72 99 09/27/22 01:40 66 16 131/78 99 09/27/22 01:30 63 16 133/67 98 09/27/22 01:20 65 16 133/67 99 09/27/22 01:10 64 16 129/77 99 09/27/22 01:00 65 16 114/75 99 09/27/22 00:50 65 16 114/75 99 09/27/22 00:40 68 16 142/74 99 09/27/22 00:30 96.0 F L 68 25 H 143/84 100 50 09/27/22 00:24 24 09/27/22 00:09 50 09/27/22 00:00 50 09/26/22 23:40 60 16 95/55 100 09/26/22 23:00 66 16 101/58 100 09/26/22 22:56 65 16 126/64 100 09/26/22 22:52 63 16 131/62 100 09/26/22 22:36 56 L 16 90/54 100 09/26/22 22:30 59 L 16 109/62 100 09/26/22 22:24 60 92/43 100 09/26/22 22:12 58 L 16 106/62 100 09/26/22 21:41 62 16 107/52 100 09/26/22 21:26 55 L 16 98/49 100 09/26/22 21:21 56 L 16 88/51 100 09/26/22 21:13 60 16 69/43 100 09/26/22 20:59 61 16 85/52 100 09/26/22 20:56 67 16 85/52 100 09/26/22 20:54 16 09/26/22 20:53 61 16 91/42 100 09/26/22 20:49 100 09/26/22 20:47 100 09/26/22 20:43 90 16 76/54 100 Intake and Output 09/27/22 09/27/22 09/27/22 06:59 14:59 22:59 Intake Total 725.024 817.467 212.674 Output Total 30 10 0 Balance 695.024 807.467 212.674 Intake: IV 700 800 200 Sodium Chloride 0.9% 1, 700 800 200 000 ml @ 100 mls/hr IV . Q10H [facility] Rx#:[id number] Intake, IV Titration 25.024 17.467 12.674 Amount Norepinephrine 4 mg In 25.024 17.467 12.674 Sodium Chloride 0.9% 250 ml @ 0.03 MCG/KG/MIN 8. 295 mls/hr IV .Q24H ONE Rx#:[id number] Output: Urine 30 10 0 Other: Voiding Method Indwelling Catheter Indwelling Catheter Indwelling Catheter Weight 78.1 kg 78.4 kg Results CBC & Chem 7: 09/27/22 06:07 09/27/22 06:07 Labs: Abnormal Lab Results - Last 24 Hours (Table) 09/26/22 09/26/22 09/26/22 Range/Units 20:55 20:55 20:55 WBC 15.6 H (3.8-10.6) k/uL RBC 4.15 L (4.30-5.90) m/uL Hgb 12.8 L (13.0-17.5) gm/dL Hct (39.0-53.0) % Plt Count 547 H (150-450) k/uL Neutrophils # (1.3-7.7) k/uL Lymphocytes # 6.5 H (1.0-4.8) k/uL ABG pH (7.35-7.45) ABG pCO2 (35-45) mmHg ABG pO2 (83-108) mmHg ABG HCO3 (21-25) mmol/L ABG O2 Saturation (94-97) % Sodium 132 L (137-145) mmol/L Chloride (98-107) mmol/L Carbon Dioxide 18 L (22-30) mmol/L BUN 24 H (9-20) mg/dL Creatinine (0.66-1.25) mg/dL Glucose 223 H (74-99) mg/dL POC Glucose (mg/dL) (70-110) mg/dL Plasma Lactic Acid Conner 6.7 H* (0.7-2.0) mmol/L Calcium 8.2 L (8.4-10.2) mg/dL AST 67 H (17-59) U/L Total Protein 5.8 L (6.3-8.2) g/dL Albumin 3.2 L (3.5-5.0) g/dL Urine Protein (Negative) Urine Ketones (Negative) Urine Blood (Negative) Urine WBC (0-5) /hpf Amorphous Sediment (None) /hpf Urine Bacteria (None) /hpf Hyaline Casts (0-2) /lpf Urine Mucus (None) /hpf 09/26/22 09/27/22 09/27/22 Range/Units 22:25 00:23 04:49 WBC (3.8-10.6) k/uL RBC (4.30-5.90) m/uL Hgb (13.0-17.5) gm/dL Hct (39.0-53.0) % Plt Count (150-450) k/uL Neutrophils # (1.3-7.7) k/uL Lymphocytes # (1.0-4.8) k/uL ABG pH 7.21 L (7.35-7.45) ABG pCO2 (35-45) mmHg ABG pO2 332 H (83-108) mmHg ABG HCO3 18 L (21-25) mmol/L ABG O2 Saturation 98.9 H (94-97) % Sodium (137-145) mmol/L Chloride (98-107) mmol/L Carbon Dioxide (22-30) mmol/L BUN (9-20) mg/dL Creatinine (0.66-1.25) mg/dL Glucose (74-99) mg/dL POC Glucose (mg/dL) 194 H (70-110) mg/dL Plasma Lactic Acid Conner (0.7-2.0) mmol/L Calcium (8.4-10.2) mg/dL AST (17-59) U/L Total Protein (6.3-8.2) g/dL Albumin (3.5-5.0) g/dL Urine Protein 2+ H (Negative) Urine Ketones 1+ H (Negative) Urine Blood Small H (Negative) Urine WBC 7 H (0-5) /hpf Amorphous Sediment Occasional H (None) /hpf Urine Bacteria Occasional H (None) /hpf Hyaline Casts 3 H (0-2) /lpf Urine Mucus Occasional H (None) /hpf 09/27/22 09/27/22 09/27/22 Range/Units 05:38 06:07 06:07 WBC 12.4 H (3.8-10.6) k/uL RBC 3.54 L (4.30-5.90) m/uL Hgb 10.7 L (13.0-17.5) gm/dL Hct 34.4 L (39.0-53.0) % Plt Count (150-450) k/uL Neutrophils # 10.5 H (1.3-7.7) k/uL Lymphocytes # 0.9 L (1.0-4.8) k/uL ABG pH 7.23 L (7.35-7.45) ABG pCO2 46 H (35-45) mmHg ABG pO2 138 H (83-108) mmHg ABG HCO3 19 L (21-25) mmol/L ABG O2 Saturation 98.0 H (94-97) % Sodium 135 L (137-145) mmol/L Chloride 111 H (98-107) mmol/L Carbon Dioxide 16 L (22-30) mmol/L BUN 26 H (9-20) mg/dL Creatinine 1.32 H (0.66-1.25) mg/dL Glucose 207 H (74-99) mg/dL POC Glucose (mg/dL) (70-110) mg/dL Plasma Lactic Acid Conner (0.7-2.0) mmol/L Calcium 6.7 L (8.4-10.2) mg/dL AST (17-59) U/L Total Protein (6.3-8.2) g/dL Albumin (3.5-5.0) g/dL Urine Protein (Negative) Urine Ketones (Negative) Urine Blood (Negative) Urine WBC (0-5) /hpf Amorphous Sediment (None) /hpf Urine Bacteria (None) /hpf Hyaline Casts (0-2) /lpf Urine Mucus (None) /hpf 09/27/22 09/27/22 09/27/22 Range/Units 06:18 11:12 16:38 WBC (3.8-10.6) k/uL RBC (4.30-5.90) m/uL Hgb (13.0-17.5) gm/dL Hct (39.0-53.0) % Plt Count (150-450) k/uL Neutrophils # (1.3-7.7) k/uL Lymphocytes # (1.0-4.8) k/uL ABG pH (7.35-7.45) ABG pCO2 (35-45) mmHg ABG pO2 (83-108) mmHg ABG HCO3 (21-25) mmol/L ABG O2 Saturation (94-97) % Sodium (137-145) mmol/L Chloride (98-107) mmol/L Carbon Dioxide (22-30) mmol/L BUN (9-20) mg/dL Creatinine (0.66-1.25) mg/dL Glucose (74-99) mg/dL POC Glucose (mg/dL) 223 H 180 H 192 H (70-110) mg/dL Plasma Lactic Acid Conner (0.7-2.0) mmol/L Calcium (8.4-10.2) mg/dL AST (17-59) U/L Total Protein (6.3-8.2) g/dL Albumin (3.5-5.0) g/dL Urine Protein (Negative) Urine Ketones (Negative) Urine Blood (Negative) Urine WBC (0-5) /hpf Amorphous Sediment (None) /hpf Urine Bacteria (None) /hpf Hyaline Casts (0-2) /lpf Urine Mucus (None) /hpf Microbiology - Last 24 Hours (Table) 09/27/22 03:00 Gram Stain - Preliminary Sputum Sputum Culture - Preliminary Thrombosis Risk Factor Assmnt - Choose All That Apply Each Risk Factor Represents 3 Points: Age 75 years or older Thrombosis Risk Factor Assessment Total Risk Factor Score: 3 Thrombosis Risk Factor Assessment Level: Moderate Risk
[2022-09-27 18:47] LABS: Glucose,Whole Blood 210 mg/dL (70-110)
[2022-09-27 20:58] LABS: Glucose,Whole Blood 212 mg/dL (70-110)
--- NOTE | 2022-09-27 21:41 | EEG ---
ELECTROENCEPHALOGRAM REPORT PREAMBLE: This is an 81-year-old male with cardiac arrest with prolonged down time. This study is performed to evaluate for epileptiform activity. Patient is comatose. EEG FINDINGS: This is a 21-channel portable EEG recorded with video component, utilizing 10/20 international system with referential and bipolar montages. The recording starts and continues with presence of severely suppressed background, almost appearing isoelectric, with intermittent bursts of high amplitude generalized spike and slow wave at 5 hertz. These bursts are associated with myoclonic twitching of the facial region. No reactivity of the background was seen with passive eye opening and closing. Photic stimulation was not done. Different stages of sleep were not seen. IMPRESSION: This is a severely abnormal EEG due to the presence of almost isoelectric suppression, with intermittent periods of high amplitude generalized spike wave, at 4 to 5 hertz. This burst pattern was associated with some myoclonic twitching suggestive of ictal activity. Overall, this EEG is suggestive of generalized cerebral dysfunction, severe degree, which is typically associated with cardiac arrest. This pattern pertains poor prognosis. Followup EEG recommended if clinically indicated. MMODL / IJN: [id number] / [facility]
--- NOTE | 2022-09-27 22:14 | P.HPIM ---
History of Present Illness H&P Date: 09/27/22 Chief Complaint: cardiac arrest Taye August is a 81 yo M who was brought to the hospital via EMS after cardiac arrest at home. Per his , pt had been experiencing diarrhea over the past few weeks and had been undergoing outpatient workup for same. He went into his garage last night and his heard a fall and when she checked on him the pt was collapsed on the floor of his garage. Pt's performed CPR and when EMS arrived they continued 3 rounds of CPR with ROSC and established an OPA. On his arrival to the ED pt hypotensive and requiring levophed, he was given IV fluids and transferred to the ICU. WBC 15k, Hgb 12.8, Na 132, Cr 1.22, pH 7.2, PCO2 44. CXR no acute process. He continues to demonstrate spontaneous facial twitching. Review of Systems ROS unobtainable: due to mental status Past Medical History Past Medical History: Atrial Fibrillation, Cancer, COPD, Diabetes Mellitus, Eye Disorder, GERD/Reflux, Hyperlipidemia, Hypertension, Prostate Disorder, Sleep Apnea/CPAP/BIPAP Additional Past Medical History / Comment(s): skin cancer- squamous and pre- melanoma, macular degeneration, fell off porch and had a brain bleed from this incident- February 2016, back problems-uses walker, cane as needed. covid 14 April 2021 History of Any Multi-Drug Resistant Organisms: None Reported Past Surgical History: Back Surgery, Heart Catheterization, Hernia Repair, Joint Replacement, Orthopedic Surgery, Tonsillectomy Additional Past Surgical History / Comment(s): total rt knee replacement, reverse total rt shoulder, lt knee benign tumor removed external, internal. back surgery with laminectomy and fusion. stevie cataracts, emma fundoplication Past Anesthesia/Blood Transfusion Reactions: Family History of Problems w/ Anesthesia Additional Past Anesthesia/Blood Transfusion Reaction / Comment(s): Takes longer to wake up. Mother had problems with N&V. Past Psychological History: Anxiety Smoking Status: Former smoker Past Alcohol Use History: Daily Additional Past Alcohol Use History / Comment(s): smoked 50 years 1ppd quit 2004. Past Drug Use History: None Reported Additional Drug Use History / Comment(s): CBD drops in his coffee in the morning. - Past Family History Mother Family Medical History: Cancer Additional Family Medical History / Comment(s): uterine cancer, pre-cancer colon had bowel resection Father Family Medical History: Cancer Additional Family Medical History / Comment(s): lymphoma Medications and Allergies Home Medications Medication Instructions Recorded Confirmed Type Cetirizine HCl 10 mg PO DAILY 04/28/17 09/26/22 History Cyanocobalamin [Vitamin B-12] 500 mcg PO DAILY 04/28/17 09/26/22 History DULoxetine HCL [Cymbalta] 60 mg PO DAILY 04/28/17 09/26/22 History Fluticasone Nasal [place] [Flonase 1 spr EA NOSTRIL BID 04/28/17 09/26/22 History Nasal [place]] Pregabalin [Lyrica] 50 mg PO BID 04/28/17 09/26/22 History dilTIAZem HCL [Cartia Xt] 120 mg PO DAILY 04/28/17 09/26/22 History hydroCHLOROthiazide 25 mg PO DAILY 04/28/17 09/26/22 History traMADol HCL [Ultram] 50 mg PO BID PRN 04/28/17 09/26/22 History Isosorbide Mononitrate ER [Imdur] 15 mg PO DAILY 06/05/20 09/26/22 History Atorvastatin [Lipitor] 40 mg PO DAILY 10/27/21 09/26/22 History Calcium/Magnesium/Zinc 1 tab PO DAILY 10/27/21 09/26/22 History [Ctivqpp-Kilceuiqo-Bnfa Tablet] [place] Cinnamon 2000mg 1 cap PO DAILY 10/27/21 09/26/22 History Cholecalciferol [Vitamin D3 (25 25 mcg PO DAILY 10/27/21 09/26/22 History Mcg = 1000 Iu)] Ginkgo Biloba 500 mg PO DAILY 10/27/21 09/26/22 History Immune 24 Hour + 1 tab PO DAILY 10/27/21 09/26/22 History L.acidoph,Paracasei, B.lactis 1 cap PO DAILY 10/27/21 09/26/22 History [Probiotic] Multivitamins, Thera [Multivitamin 1 tab PO DAILY 10/27/21 09/26/22 History (formulary)] Neuriva 1 tab PO DAILY 10/27/21 09/26/22 History Pyridoxine HCl (Vitamin B6) 100 mg PO DAILY 10/27/21 09/26/22 History [Vitamin B-6] Turmeric Root Extract [Turmeric] 500 mg PO DAILY 10/27/21 09/26/22 History Ubidecarenone [Co Q-10] 100 mg PO DAILY 10/27/21 09/26/22 History Vit C/E/Zn/Coppr/Lutein/Zeaxan 1 cap PO DAILY 10/27/21 09/26/22 History [Preservision Areds 2 Softgel] Vitamin B Complex 1 cap PO DAILY 10/27/21 09/26/22 History metFORMIN HCL ER [Glucophage XR] 500 mg PO DAILY 10/27/21 09/26/22 History Cholestyramine (with Sugar) 4 gm PO BID 09/26/22 09/26/22 History [Cholestyramine Packet] Diphenox-Atrop 2.5-0.025 mg 1 tab PO BID PRN 09/26/22 09/26/22 History [Lomotil] Mirabegron [Myrbetriq] 50 mg PO DAILY 09/26/22 09/26/22 History Allergies Allergy/AdvReac Type Severity Reaction Status Date / Time lisinopril AdvReac Cough Verified 09/26/22 20:43 Physical Exam Vitals: Vital Signs Temp Pulse Resp BP Pulse Ox FiO2 09/27/22 19:30 40 09/27/22 19:00 54 L 21 105/52 93 L 40 09/27/22 18:30 55 L 20 98/46 93 L 09/27/22 18:00 54 L 20 106/72 92 L 09/27/22 17:30 54 L 20 98/48 93 L 09/27/22 17:00 54 L 21 97/51 93 L 09/27/22 16:30 53 L 20 99/47 93 L 09/27/22 16:00 99.6 F 53 L 20 89/55 94 L 40 09/27/22 15:30 52 L 20 88/48 94 L 09/27/22 15:00 51 L 20 84/46 94 L 40 09/27/22 14:30 56 L 20 89/45 94 L 09/27/22 14:00 48 L 20 103/55 94 L 09/27/22 13:45 60 20 103/55 96 09/27/22 13:30 74 20 88/46 09/27/22 13:00 72 20 87/46 96 12/02/22 12:30 72 20 112/56 95 09/27/22 12:00 98.9 F 75 20 112/60 97 09/27/22 11:41 40 09/27/22 11:32 50 09/27/22 11:31 50 09/27/22 11:30 75 20 86/49 96 09/27/22 11:15 73 20 86/49 96 09/27/22 11:00 73 20 92/54 96 09/27/22 10:30 73 20 91/50 96 09/27/22 10:00 71 16 92/49 97 09/27/22 09:30 70 16 94/51 97 09/27/22 09:00 78 19 99/49 97 50 09/27/22 08:30 71 17 104/54 97 09/27/22 08:00 98.6 F 72 17 93/59 97 50 09/27/22 07:30 70 18 97/59 50 09/27/22 07:00 70 17 98/55 97 09/27/22 06:45 71 16 98/55 97 09/27/22 06:30 69 17 107/60 97 09/27/22 06:15 67 17 107/60 98 09/27/22 06:00 97.3 F L 72 18 116/62 97 09/27/22 05:45 74 16 100/62 97 09/27/22 05:30 70 16 102/62 97 09/27/22 05:15 69 16 103/58 97 09/27/22 05:00 67 17 107/64 97 09/27/22 04:45 66 16 98/57 97 09/27/22 04:30 64 16 93/58 96 09/27/22 04:15 65 16 97/56 97 09/27/22 04:00 96.0 F L 64 17 95/62 97 50 09/27/22 03:45 63 16 84/52 02 03:30 61 16 96/60 09/27/22 03:15 63 16 107/58 97 50 09/27/22 03:10 62 16 107/58 98 09/27/22 03:00 60 16 98/65 98 09/27/22 02:50 60 17 98/65 98 09/27/22 02:40 63 16 109/71 99 09/27/22 02:30 62 16 109/62 99 09/27/22 02:20 64 16 109/62 98 09/27/22 02:10 62 16 112/59 98 09/27/22 02:00 64 16 111/72 98 09/27/22 01:50 63 16 111/72 99 09/27/22 01:40 66 16 131/78 99 09/27/22 01:30 63 16 133/67 98 09/27/22 01:20 65 16 133/67 99 09/27/22 01:10 64 16 129/77 99 09/27/22 01:00 65 16 114/75 99 09/27/22 00:50 65 16 114/75 99 09/27/22 00:40 68 16 142/74 99 09/27/22 00:30 96.0 F L 68 25 H 143/84 100 50 09/27/22 00:24 24 09/27/22 00:09 50 09/27/22 00:00 50 09/26/22 23:40 60 16 95/55 100 09/26/22 23:00 66 16 101/58 100 09/26/22 22:56 65 16 126/64 100 09/26/22 22:52 63 16 131/62 100 09/26/22 22:36 56 L 16 90/54 100 09/26/22 22:30 59 L 16 109/62 100 09/26/22 22:24 60 92/43 100 09/26/22 22:12 58 L 16 106/62 100 Intake and Output 09/27/22 09/27/22 09/27/22 06:59 14:59 22:59 Intake Total 725.024 817.467 837.150 Output Total 30 10 15 Balance 695.024 807.467 822.150 Intake: IV 700 800 700 Sodium Chloride 0.9% 1, 700 800 700 000 ml @ 100 mls/hr IV . Q10H [facility] Rx#:[id number] Intake, IV Titration 25.024 17.467 107.150 Amount Norepinephrine 4 mg In 25.024 17.467 107.150 Sodium Chloride 0.9% 250 ml @ 0.03 MCG/KG/MIN 8. 295 mls/hr IV .Q24H [facility] Rx#:[id number] Oral 30 Output: Urine 30 10 15 Other: Voiding Method Indwelling Catheter Indwelling Catheter Indwelling Catheter Weight 78.1 kg 78.4 kg General: elderly male, intubated, spontaneous facial twitching HEENT: NC/AT. Pupils unequal, nonreactive Neck: supple, no JVD CV: RRR, no murmur Lungs: Clear, no wheezes or rales Neuro: absent cough, gag reflex, pt not breathing over the ventillator Skin: warm and dry Results CBC & Chem 7: 09/27/22 06:07 09/27/22 06:07 Labs: Abnormal Lab Results - Last 24 Hours (Table) 09/26/22 09/27/22 09/27/22 Range/Units 22:25 00:23 04:49 WBC (3.8-10.6) k/uL RBC (4.30-5.90) m/uL Hgb (13.0-17.5) gm/dL Hct (39.0-53.0) % Neutrophils # (1.3-7.7) k/uL Lymphocytes # (1.0-4.8) k/uL ABG pH 7.21 L (7.35-7.45) ABG pCO2 (35-45) mmHg ABG pO2 332 H (83-108) mmHg ABG HCO3 18 L (21-25) mmol/L ABG O2 Saturation 98.9 H (94-97) % Sodium (137-145) mmol/L Chloride (98-107) mmol/L Carbon Dioxide (22-30) mmol/L BUN (9-20) mg/dL Creatinine (0.66-1.25) mg/dL Glucose (74-99) mg/dL POC Glucose (mg/dL) 194 H (70-110) mg/dL Calcium (8.4-10.2) mg/dL Urine Protein 2+ H (Negative) Urine Ketones 1+ H (Negative) Urine Blood Small H (Negative) Urine WBC 7 H (0-5) /hpf Amorphous Sediment Occasional H (None) /hpf Urine Bacteria Occasional H (None) /hpf Hyaline Casts 3 H (0-2) /lpf Urine Mucus Occasional H (None) /hpf 09/27/22 09/27/22 09/27/22 Range/Units 05:38 06:07 06:07 WBC 12.4 H (3.8-10.6) k/uL RBC 3.54 L (4.30-5.90) m/uL Hgb 10.7 L (13.0-17.5) gm/dL Hct 34.4 L (39.0-53.0) % Neutrophils # 10.5 H (1.3-7.7) k/uL Lymphocytes # 0.9 L (1.0-4.8) k/uL ABG pH 7.23 L (7.35-7.45) ABG pCO2 46 H (35-45) mmHg ABG pO2 138 H (83-108) mmHg ABG HCO3 19 L (21-25) mmol/L ABG O2 Saturation 98.0 H (94-97) % Sodium 135 L (137-145) mmol/L Chloride 111 H (98-107) mmol/L Carbon Dioxide 16 L (22-30) mmol/L BUN 26 H (9-20) mg/dL Creatinine 1.32 H (0.66-1.25) mg/dL Glucose 207 H (74-99) mg/dL POC Glucose (mg/dL) (70-110) mg/dL Calcium 6.7 L (8.4-10.2) mg/dL Urine Protein (Negative) Urine Ketones (Negative) Urine Blood (Negative) Urine WBC (0-5) /hpf Amorphous Sediment (None) /hpf Urine Bacteria (None) /hpf Hyaline Casts (0-2) /lpf Urine Mucus (None) /hpf 09/27/22 09/27/22 09/27/22 Range/Units 06:18 11:12 16:38 WBC (3.8-10.6) k/uL RBC (4.30-5.90) m/uL Hgb (13.0-17.5) gm/dL Hct (39.0-53.0) % Neutrophils # (1.3-7.7) k/uL Lymphocytes # (1.0-4.8) k/uL ABG pH (7.35-7.45) ABG pCO2 (35-45) mmHg ABG pO2 (83-108) mmHg ABG HCO3 (21-25) mmol/L ABG O2 Saturation (94-97) % Sodium (137-145) mmol/L Chloride (98-107) mmol/L Carbon Dioxide (22-30) mmol/L BUN (9-20) mg/dL Creatinine (0.66-1.25) mg/dL Glucose (74-99) mg/dL POC Glucose (mg/dL) 223 H 180 H 192 H (70-110) mg/dL Calcium (8.4-10.2) mg/dL Urine Protein (Negative) Urine Ketones (Negative) Urine Blood (Negative) Urine WBC (0-5) /hpf Amorphous Sediment (None) /hpf Urine Bacteria (None) /hpf Hyaline Casts (0-2) /lpf Urine Mucus (None) /hpf 09/27/22 09/27/22 Range/Units 18:45 20:56 WBC (3.8-10.6) k/uL RBC (4.30-5.90) m/uL Hgb (13.0-17.5) gm/dL Hct (39.0-53.0) % Neutrophils # (1.3-7.7) k/uL Lymphocytes # (1.0-4.8) k/uL ABG pH (7.35-7.45) ABG pCO2 (35-45) mmHg ABG pO2 (83-108) mmHg ABG HCO3 (21-25) mmol/L ABG O2 Saturation (94-97) % Sodium (137-145) mmol/L Chloride (98-107) mmol/L Carbon Dioxide (22-30) mmol/L BUN (9-20) mg/dL Creatinine (0.66-1.25) mg/dL Glucose (74-99) mg/dL POC Glucose (mg/dL) 210 H 212 H (70-110) mg/dL Calcium (8.4-10.2) mg/dL Urine Protein (Negative) Urine Ketones (Negative) Urine Blood (Negative) Urine WBC (0-5) /hpf Amorphous Sediment (None) /hpf Urine Bacteria (None) /hpf Hyaline Casts (0-2) /lpf Urine Mucus (None) /hpf Microbiology - Last 24 Hours (Table) 09/27/22 03:00 Gram Stain - Preliminary Sputum Sputum Culture - Preliminary Thrombosis Risk Factor Assmnt - Choose All That Apply Each Risk Factor Represents 3 Points: Age 75 years or older Thrombosis Risk Factor Assessment Total Risk Factor Score: 3 Thrombosis Risk Factor Assessment Level: Moderate Risk Assessment and Plan Plan: 1. Cardiac arrest, hypovolemic shock. VDRF. Continue with present ICU care. Pulmonology consult. Levophed as required. Continue with IV fluids, subq heparin 2. Anoxic brain injury. Neurology consult, EEG ordered. Ativan as needed for myoclonic twitching
[2022-09-27] MEDS: NOREPINEPHRINE 4 MG in SODIUM CHLORIDE 0.9% 250 ML IV SCH (22:19)
[2022-09-27] MEDS ORDERED: PHENYTOIN SODIUM INJ 500 MG in SODIUM CHLORIDE 0.9% 50 ML IVPB STA (23:22)
[2022-09-28] MEDS ORDERED: FUROSEMIDE 10 MG/ML 10 ML VIAL IV STA (03:22)
[2022-09-28] MEDS: SODIUM CHLORIDE 0.9% 500 ML 500 ML IV SCH (03:35)
[2022-09-28 06:12] LABS: ABG Base Excess -12.3 mmol/L; ABG HCO3 17 mmol/L (21-25); ABG PCO2 49 mmHg (35-45); ABG PO2 152 mmHg (83-108); ABG TCO2 18 mmol/L (19-24); Allen Test Performed? Yes
[2022-09-28 06:15] LABS: ABG PH 7.15 (7.35-7.45)
[2022-09-28] MEDS ORDERED: SODIUM BICARB 8.4% 50 ML SYR (1 MEQ/ML) IV STA (06:29)
[2022-09-28 06:42] LABS: Glucose,Whole Blood 258 mg/dL (70-110)
[2022-09-28 06:47] LABS: Basophils % (A) 0 %; Eosinophils % (A) 0 %; HCT 36.8 % (39.0-53.0); Hypochromasia Marked; Lymphocytes # (A) 1.4 k/uL (1.0-4.8); Lymphocytes % (A) 9 %; MCH 30.1 pg (25.0-35.0); MCV 100.3 fL (80.0-100.0); Mean Platelet Volume 8.3; Monocytes # (A) 0.9 k/uL (0-1.0); Monocytes % (A) 6 %; Neutrophils # (A) 12.9 k/uL (1.3-7.7); Neutrophils % (A) 82 %; Platelet Count 462 k/uL (150-450); RBC 3.67 m/uL (4.30-5.90); RDW 12.4 % (11.5-15.5); WBC 15.7 k/uL (3.8-10.6)
[2022-09-28] MEDS: DEXTROSE 5% IN WATER 1,000 ML with SODIUM BICARB (1 MEQ/ML) 150 ML IV SCH (07:02)
[2022-09-28 07:05] LABS: Calcium 6.8 mg/dL (8.4-10.2); Potassium 5.8 mmol/L (3.5-5.1)
[2022-09-28] MEDS: INSULIN ASPART (NovoLOG) 100 UNIT/ML VIAL SQ SCH ×4 (07:08→20:15)
--- NOTE | 2022-09-28 07:48 | XR ---
EXAMINATION TYPE: XR chest 1V portable DATE OF EXAM: 09/28/2022 6:12 AM COMPARISON: Chest radiographs from 09/27/2022. TECHNIQUE: XR chest 1V portable Portable AP radiograph of the chest. CLINICAL INDICATION:Male, 81 years old with history of Pt is intubated; FINDINGS: Patient is rotated on today's exam. Lungs/Pleura: Bibasilar atelectasis. No evidence for pneumothorax or focal consolidation. Blunting of the right costophrenic angle. Pulmonary vascularity: Unremarkable. Heart/mediastinum: Cardiomediastinal silhouette is unremarkable. Musculoskeletal: No acute osseous pathology. Right shoulder arthroplasty changes. Lines/Tubes: Endotracheal tube with distal tip 2.7 cm above the mark Nasogastric tube with its distal tip and side-port projecting under the diaphragm. IMPRESSION: 1. Bibasilar atelectasis with stable support tubes, no significant change from prior. 2. Small right pleural effusion.
[2022-09-28] MEDS: CHLORHEXIDINE GLUCONATE 15 ML CUP MUCOUS MEM SCH ×2 (08:06→20:15)
[2022-09-28] MEDS: PANTOPRAZOLE 40 MG/10 ML VIAL IVP SCH (08:06)
[2022-09-28] MEDS: HEPARIN SODIUM,PORCINE/PF 5,000 UNIT/0.5 ML SYRINGE SQ SCH ×3 (08:06→23:47)
[2022-09-28 08:16] LABS: Phenytoin (Dilantin) 10.6 ug/mL
[2022-09-28] MEDS: levETIRAcetam IV 1,000 MG in SALINE 1 100ML.BAG IVPB SCH ×2 (08:32→20:15)
[2022-09-28] MEDS: PHENYTOIN SODIUM INJ 200 MG in SODIUM CHLORIDE 0.9% 36 ML IVPB SCH ×2 (08:32→20:25)
[2022-09-28 09:49] VITALS: RESP 26
--- NOTE | 2022-09-28 10:25 | P.NPCON ---
History of Present Illness - Reason for Consult acute renal failure - History of Present Illness Patient is an 81-year-old male with history of COPD, type 2 diabetes, chronic A. fib, hypertension. He was admitted to the hospital as he was found by his collapsed in the garage. She heard a loud noise and found him on the floor. Patient's started CPR and called 911. He was intubated on site and brought into the ER. Patient has been hypotensive and has had poor urine output since admission. Current urine output 02 5 mL an hour. He is maintained on levo fed at 0.05 mcg/m Patient received 5 L of fluid bolus on admission. He has had significant diarrhea and currently has an FMS. Patient also had history of diarrhea prior to admission. He has had no significant purposeful movements. Patient has not been on any sedation. He has had twitching movements of his face and is maintained on Dilantin. Serum creatinine was 1.2 on initial admission and increased to 3.04 today. Potassium was elevated at 5.8. CO2 was 17. Patient was started on bicarb drip this morning. Received IV Lasix 60 mg this morning with minimum response. Maintained on tube feedings FiO2 is at 50% Review of Systems As per HPI Past Medical History Past Medical History: Atrial Fibrillation, Cancer, COPD, Diabetes Mellitus, Eye Disorder, GERD/Reflux, Hyperlipidemia, Hypertension, Prostate Disorder, Sleep Apnea/CPAP/BIPAP Additional Past Medical History / Comment(s): skin cancer- squamous and pre- melanoma, macular degeneration, fell off porch and had a brain bleed from this incident- February 2016, back problems-uses walker, cane as needed. covid 14 April 2021 History of Any Multi-Drug Resistant Organisms: None Reported Past Surgical History: Back Surgery, Heart Catheterization, Hernia Repair, Joint Replacement, Orthopedic Surgery, Tonsillectomy Additional Past Surgical History / Comment(s): total rt knee replacement, reverse total rt shoulder, lt knee benign tumor removed external, internal. back surgery with laminectomy and fusion. stevie cataracts, emma fundoplication Past Anesthesia/Blood Transfusion Reactions: Family History of Problems w/ Anesthesia Additional Past Anesthesia/Blood Transfusion Reaction / Comment(s): Takes longer to wake up. Mother had problems with N&V. Past Psychological History: Anxiety Smoking Status: Former smoker Past Alcohol Use History: Daily Additional Past Alcohol Use History / Comment(s): smoked 50 years 1ppd quit 2004. Past Drug Use History: None Reported Additional Drug Use History / Comment(s): CBD drops in his coffee in the morning. - Past Family History Mother Family Medical History: Cancer Additional Family Medical History / Comment(s): uterine cancer, pre-cancer colon had bowel resection Father Family Medical History: Cancer Additional Family Medical History / Comment(s): lymphoma Medications and Allergies Home Medications Medication Instructions Recorded Confirmed Type Cetirizine HCl 10 mg PO DAILY 04/28/17 09/26/22 History Cyanocobalamin [Vitamin B-12] 500 mcg PO DAILY 04/28/17 09/26/22 History DULoxetine HCL [Cymbalta] 60 mg PO DAILY 04/28/17 09/26/22 History Fluticasone Nasal [place] [Flonase 1 spr EA NOSTRIL BID 04/28/17 09/26/22 History Nasal [place]] Pregabalin [Lyrica] 50 mg PO BID 04/28/17 09/26/22 History dilTIAZem HCL [Cartia Xt] 120 mg PO DAILY 04/28/17 09/26/22 History hydroCHLOROthiazide 25 mg PO DAILY 04/28/17 09/26/22 History traMADol HCL [Ultram] 50 mg PO BID PRN 04/28/17 09/26/22 History Isosorbide Mononitrate ER [Imdur] 15 mg PO DAILY 06/05/20 09/26/22 History Atorvastatin [Lipitor] 40 mg PO DAILY 10/27/21 09/26/22 History Calcium/Magnesium/Zinc 1 tab PO DAILY 10/27/21 09/26/22 History [Fspvwjw-Janzybxav-Gckl Tablet] [place] Cinnamon 2000mg 1 cap PO DAILY 10/27/21 09/26/22 History Cholecalciferol [Vitamin D3 (25 25 mcg PO DAILY 10/27/21 09/26/22 History Mcg = 1000 Iu)] Ginkgo Biloba 500 mg PO DAILY 10/27/21 09/26/22 History Immune 24 Hour + 1 tab PO DAILY 10/27/21 09/26/22 History L.acidoph,Paracasei, B.lactis 1 cap PO DAILY 10/27/21 09/26/22 History [Probiotic] Multivitamins, Thera [Multivitamin 1 tab PO DAILY 10/27/21 09/26/22 History (formulary)] Neuriva 1 tab PO DAILY 10/27/21 09/26/22 History Pyridoxine HCl (Vitamin B6) 100 mg PO DAILY 10/27/21 09/26/22 History [Vitamin B-6] Turmeric Root Extract [Turmeric] 500 mg PO DAILY 10/27/21 09/26/22 History Ubidecarenone [Co Q-10] 100 mg PO DAILY 10/27/21 09/26/22 History Vit C/E/Zn/Coppr/Lutein/Zeaxan 1 cap PO DAILY 10/27/21 09/26/22 History [Preservision Areds 2 Softgel] Vitamin B Complex 1 cap PO DAILY 10/27/21 09/26/22 History metFORMIN HCL ER [Glucophage XR] 500 mg PO DAILY 10/27/21 09/26/22 History Cholestyramine (with Sugar) 4 gm PO BID 09/26/22 09/26/22 History [Cholestyramine Packet] Diphenox-Atrop 2.5-0.025 mg 1 tab PO BID PRN 09/26/22 09/26/22 History [Lomotil] Mirabegron [Myrbetriq] 50 mg PO DAILY 09/26/22 09/26/22 History Allergies Allergy/AdvReac Type Severity Reaction Status Date / Time lisinopril AdvReac Cough Verified 09/26/22 20:43 Physical Exam Vitals: Vital Signs Temp Pulse Resp BP Pulse Ox FiO2 09/28/22 09:30 70 26 H 94/53 96 09/28/22 09:00 74 20 120/55 96 09/28/22 08:30 73 26 H 133/53 99 09/28/22 08:00 98.2 F 70 26 H 117/60 99 60 09/28/22 07:30 71 26 H 111/55 99 09/28/22 07:03 60 09/28/22 07:00 76 20 132/64 99 60 09/28/22 06:45 76 20 113/48 98 60 09/28/22 06:30 64 20 106/34 98 60 09/28/22 06:15 65 20 99/45 99 60 09/28/22 06:13 60 09/28/22 06:00 68 20 118/50 99 80 09/28/22 05:45 69 20 121/51 98 80 09/28/22 05:30 55 L 16 115/55 99 80 09/28/22 05:15 65 20 120/53 99 80 09/28/22 05:00 61 20 112/55 99 80 09/28/22 04:45 61 20 119/50 99 80 09/28/22 04:30 61 20 123/54 99 80 09/28/22 04:15 51 L 20 121/53 99 80 09/28/22 04:00 98.8 F 65 20 126/59 98 80 09/28/22 03:45 55 L 20 116/52 99 100 09/28/22 03:44 80 09/28/22 03:30 52 L 20 123/52 98 100 09/28/22 03:17 100 09/28/22 03:15 57 L 20 124/53 88 L 40 09/28/22 03:00 50 L 20 124/57 85 L 40 09/28/22 02:45 65 20 107/56 87 L 40 09/28/22 02:30 57 L 20 107/56 89 L 40 09/28/22 02:15 53 L 20 107/56 95 40 09/28/22 02:00 53 L 20 108/53 93 L 40 09/28/22 01:45 53 L 20 108/49 95 40 09/28/22 01:30 53 L 20 104/54 95 40 09/28/22 01:15 53 L 20 101/49 94 L 40 09/28/22 01:00 51 L 20 95/52 94 L 40 09/28/22 00:45 50 L 20 95/50 93 L 40 09/28/22 00:30 50 L 20 88/52 93 L 40 09/28/22 00:15 50 L 20 88/46 95 40 09/28/22 00:00 98.7 F 56 L 20 106/57 93 L 40 09/27/22 23:45 51 L 20 114/60 93 L 40 09/27/22 23:30 51 L 20 114/53 94 L 40 09/27/22 23:24 40 09/27/22 23:15 53 L 20 111/50 94 L 40 09/27/22 23:00 53 L 20 117/51 94 L 40 09/27/22 22:45 53 L 20 117/52 95 40 09/27/22 22:30 54 L 20 106/57 94 L 40 09/27/22 22:15 53 L 20 110/51 94 L 40 09/27/22 22:00 54 L 20 103/48 94 L 40 09/27/22 21:45 53 L 20 91/41 93 L 40 09/27/22 21:30 54 L 20 103/46 94 L 40 09/27/22 21:15 54 L 20 101/48 95 40 09/27/22 21:00 55 L 20 112/50 94 L 40 09/27/22 20:45 54 L 20 108/53 92 L 40 09/27/22 20:30 55 L 20 100/53 92 L 40 09/27/22 20:15 54 L 20 108/57 94 L 40 09/27/22 20:00 99.7 F H 54 L 20 97/52 94 L 40 09/27/22 19:45 55 L 20 97/52 94 L 40 09/27/22 19:30 53 L 20 112/50 94 L 40 09/27/22 19:00 54 L 21 105/52 93 L 40 09/27/22 18:30 55 L 20 98/46 93 L 09/27/22 18:00 54 L 20 106/72 92 L 09/27/22 17:30 54 L 20 98/48 93 L 09/27/22 17:00 54 L 21 97/51 93 L 09/27/22 16:30 53 L 20 99/47 93 L 09/27/22 16:00 99.6 F 53 L 20 89/55 94 L 40 09/27/22 15:30 52 L 20 88/48 94 L 09/27/22 15:00 51 L 20 84/46 94 L 40 09/27/22 14:30 56 L 20 89/45 94 L 09/27/22 14:00 48 L 20 103/55 94 L 09/27/22 13:45 60 20 103/55 96 09/27/22 13:30 74 20 88/46 09/27/22 13:00 72 20 87/46 96 09/27/22 12:30 72 20 112/56 95 09/27/22 12:00 98.9 F 75 20 112/60 97 09/27/22 11:41 40 09/27/22 11:32 50 09/27/22 11:31 50 09/27/22 11:30 75 20 86/49 96 09/27/22 11:15 73 20 86/49 96 09/27/22 11:00 73 20 92/54 96 09/27/22 10:30 73 20 91/50 96 Intake and Output 09/27/22 09/28/22 09/28/22 22:59 06:59 14:59 Intake Total 945.445 921.521 160.773 Output Total 15 45 55 Balance 930.445 876.521 105.773 Intake: IV 800 800 120 Sodium Chloride 0.9% 1, 800 800 120 000 ml @ 100 mls/hr IV . Q10H [facility] Rx#:[id number] Intake, IV Titration 115.445 121.521 40.773 Amount Norepinephrine 4 mg In 115.445 Sodium Chloride 0.9% 250 ml @ 0.03 MCG/KG/MIN 8. 295 mls/hr IV .Q24H [facility] Rx#:[id number] Norepinephrine 4 mg In 121.521 40.773 Sodium Chloride 0.9% 250 ml @ 0.03 MCG/KG/MIN 8. 961 mls/hr IV .Q24H [facility] Rx#:[id number] Oral 30 Output: Urine 15 45 55 Other: Voiding Method Indwelling Catheter Indwelling Catheter Indwelling Catheter Patient is currently on the vent No sedation Twitching movements of the face noted No response to painful stimuli Examination of the heart shows S1 and S2 Examination of the lungs shows bilateral breath sounds are heard Abdomen is soft nontender Bilateral lower extremities with trace edema Results - Lab Results Most recent lab results ABG pH 7.15 (7.35-7.45) L* 09/28/22 06:01 ABG pCO2 49 mmHg (35-45) H 09/28/22 06:01 ABG pO2 152 mmHg (83-108) H 09/28/22 06:01 ABG HCO3 17 mmol/L (21-25) L 09/28/22 06:01 ABG O2 Saturation 98.0 % (94-97) H 09/28/22 06:01 Calcium 6.8 mg/dL (8.4-10.2) L 09/28/22 06:11 Magnesium 1.6 mg/dL (1.6-2.3) 09/27/22 06:07 09/28/22 06:11 09/28/22 06:11 Assessment and Plan Assessment: 1. Acute kidney injury ATN currently oliguric, ischemic. UA shows 2+ protein and small blood. Check ultrasound of the kidneys 2. Hyperkalemia associated with acute kidney injury and metabolic acidosis. Bl ood sugars have also been elevated contributing to the high potassium levels 3. Non-gap metabolic acidosis associated with acute kidney injury 4. Status post cardiac arrest 5. Acute hypoxic respiratory failure 6. Possible underlying seizures maintained on Dilantin 7. Chronic A. fib 8. Possible anoxic brain injury Plan: Repeat labs now Agree with bicarb drip Control blood sugars Change tube feeds to Nepro If aggressive medical care is desired patient will need renal replacement therapy if he continues to be oliguric with persistent hyperkalemia. Thank you for the consultation. We will continue to follow the patient with you during his hospitalization
[2022-09-28 10:37] LABS: Calcium 6.9 mg/dL (8.4-10.2)
--- NOTE | 2022-09-28 11:08 | P.PN ---
Subjective Progress Note Date: 09/28/22 Principal diagnosis: Cardiac arrest This is an 81-year-old white male with history of multiple medical problems including hypertension, chronic atrial fibrillation, COPD, type 2 diabetes, dyslipidemia, obstructive sleep apnea syndrome, history of brain bleed secondary to previous fall off the portion. Patient had a witnessed cardiac arrest yesterday by his , and he went pulseless and noted not breathing. His initiated CPR, until EMS arrived, patient received 2 rounds of epinephrine, and 3 rounds of CPR, with return of spontaneous circulation. Patient was intubated in the field by EMS, brought into the ER, he was hypotensive, placed on norepinephrine initially, patient was given significant amount of fluids as it was felt that the patient was hypovolemic. Patient had a central line placed by the ER physician, admitted to the ICU and this consult was initiated. Presently the patient is intubated and mechanically ventilated, his ventilator settings are assist control rate 16 the volume 400 FiO2 50% and PEEP of 5 ABG showed a pO2 of 138 pCO2 46 pH of 7.23, hence I recommended increasing the rate up to 20 and cutting down the FiO2 to 40%. Patient is having significant amount of facial twitching, neurological consultation is pending, EEG is pending, and I recommended a trial of 1 mg of Ativan just in case of the findings are consistent with ongoing seizures. Chest x-ray was reviewed, no active disease and I recommended advancing the endotracheal tube down to see him. Patient is now off norepinephrine, hemodynamically stable, however the patient is not responsive to any stimuli including painful stimuli. His pupils are nonreactive and fixed. Obviously the patient may have sustained a significant anoxic brain injury, CPR was done for about 15 minutes. Reevaluated today on , patient remains mechanically ventilated. Patient is on assist control rate of 20, tidal volume 400 FiO2 50% and PEEP of 8. ABG showed a pO2 of 152 pCO2 48 pH of 7.15, hence his rate was increased to 26, patient was given 1 amp of bicarb, and he was placed on a bicarb drip at 50 MLS per hour. Patient remains on norepinephrine at 0.03 mcg/kg/m, he is receiving Glucerna/enteral feeding, today I establish a left radial arterial line, and I recommended that we continue supportive care measures, apparently the neurologist did discuss the findings with the family, and gave them the picture that the patient has poor prognosis, in the meantime the patient remains full code. Chest x-ray showed bibasilar atelectasis, no significant abnormality, endotracheal tube seems to be in the proper position. Nasogastric tube is also in proper position. WBC count is 15.7 hemoglobin is 11. Basic metabolic profile is normal however his BUN is 46 creatinine 2.90, patient had very poor urine output over the last 24 hours, nephrology was consulted, patient did not improve much with diuretics. His IV fluid total today including the bicarb drip is about 70 mL per hour Objective - Vital Signs Vital signs: Vital Signs Temp 98.2 F 09/28/22 08:00 Pulse 71 09/28/22 10:00 Resp 26 H 09/28/22 10:00 BP 94/53 09/28/22 09:30 Pulse Ox 97 09/28/22 10:00 FiO2 50 09/28/22 10:56 Intake & Output 09/27/22 09/28/22 09/28/22 18:59 06:59 18:59 Intake Total 1538.057 1504.292 170.773 Output Total 15 55 75 Balance 0142.925 7153.292 95.773 Weight 78.4 kg Intake: IV 1300 1100 130 Sodium Chloride 0.9% 1, 1300 1100 130 000 ml @ 100 mls/hr IV . Q10H [facility] Rx#:[id number] Intake, IV Titration 30.141 224.292 40.773 Amount Norepinephrine 4 mg In 30.141 102.771 Sodium Chloride 0.9% 250 ml @ 0.03 MCG/KG/MIN 8. 295 mls/hr IV .Q24H [facility] Rx#:[id number] Norepinephrine 4 mg In 121.521 40.773 Sodium Chloride 0.9% 250 ml @ 0.03 MCG/KG/MIN 8. 961 mls/hr IV .Q24H [facility] Rx#:[id number] Oral 30 Output: Urine 15 55 75 Other: Voiding Method Indwelling Catheter Indwelling Catheter Indwelling Catheter ABP, PAP, CO, CI - Last Documented Arterial Blood Pressure 103/50 - Exam Physical Exam: Revealed an 81-year-old white male intubated mechanically ventilated, in no distress. Not much of a change noted in the last 24 hours in his overall clinical status Head: Atraumatic, normocephalic. HEENT:[Neck is supple.] [No neck masses.] [No thyromegaly.] [No JVD.] Pupils are fixed, nonreactive, patient has endotracheal tube in place, and orogastric tube in place. Chest: [Symmetrical chest expansion diminished breath sounds at the bases no crackles or rhonchi or wheezes Cardiac Exam: Irregular irregular rhythm, no S3 gallop, no murmur, Abdomen: [Soft, nontender, no megaly, no rebound, no guarding, normal bowel sounds.] Extremities: [No clubbing, no edema, no cyanosis.] Neurological Exam: Patient is unresponsive to any verbal or painful stimuli. Noted to have significant twitching of the face and periorbital area, pupils nonreactive. No spontaneous movement noted whatsoever Psychiatric: Could not assess - Labs CBC & Chem 7: 09/28/22 06:11 09/28/22 10:18 Labs: Abnormal Lab Results - Last 24 Hours (Table) 09/27/22 09/27/22 09/27/22 Range/Units 11:12 16:38 18:45 WBC (3.8-10.6) k/uL RBC (4.30-5.90) m/uL Hgb (13.0-17.5) gm/dL Hct (39.0-53.0) % MCV (80.0-100.0) fL MCHC (31.0-37.0) g/dL Plt Count (150-450) k/uL Neutrophils # (1.3-7.7) k/uL ABG pH (7.35-7.45) ABG pCO2 (35-45) mmHg ABG pO2 (83-108) mmHg ABG HCO3 (21-25) mmol/L ABG Total CO2 (19-24) mmol/L ABG O2 Saturation (94-97) % Potassium (3.5-5.1) mmol/L Chloride (98-107) mmol/L Carbon Dioxide (22-30) mmol/L BUN (9-20) mg/dL Creatinine (0.66-1.25) mg/dL Glucose (74-99) mg/dL POC Glucose (mg/dL) 180 H 192 H 210 H (70-110) mg/dL Calcium (8.4-10.2) mg/dL 09/27/22 09/28/22 09/28/22 Range/Units 20:56 06:01 06:11 WBC 15.7 H (3.8-10.6) k/uL RBC 3.67 L (4.30-5.90) m/uL Hgb 11.0 L (13.0-17.5) gm/dL Hct 36.8 L (39.0-53.0) % MCV 100.3 H (80.0-100.0) fL MCHC 30.0 L (31.0-37.0) g/dL Plt Count 462 H (150-450) k/uL Neutrophils # 12.9 H (1.3-7.7) k/uL ABG pH 7.15 L* (7.35-7.45) ABG pCO2 49 H (35-45) mmHg ABG pO2 152 H (83-108) mmHg ABG HCO3 17 L (21-25) mmol/L ABG Total CO2 18 L (19-24) mmol/L ABG O2 Saturation 98.0 H (94-97) % Potassium (3.5-5.1) mmol/L Chloride (98-107) mmol/L Carbon Dioxide (22-30) mmol/L BUN (9-20) mg/dL Creatinine (0.66-1.25) mg/dL Glucose (74-99) mg/dL POC Glucose (mg/dL) 212 H (70-110) mg/dL Calcium (8.4-10.2) mg/dL 09/28/22 09/28/22 09/28/22 Range/Units 06:11 06:40 10:18 WBC (3.8-10.6) k/uL RBC (4.30-5.90) m/uL Hgb (13.0-17.5) gm/dL Hct (39.0-53.0) % MCV (80.0-100.0) fL MCHC (31.0-37.0) g/dL Plt Count (150-450) k/uL Neutrophils # (1.3-7.7) k/uL ABG pH (7.35-7.45) ABG pCO2 (35-45) mmHg ABG pO2 (83-108) mmHg ABG HCO3 (21-25) mmol/L ABG Total CO2 (19-24) mmol/L ABG O2 Saturation (94-97) % Potassium 5.8 H (3.5-5.1) mmol/L Chloride 109 H 112 H (98-107) mmol/L Carbon Dioxide 17 L 19 L (22-30) mmol/L BUN 38 H 46 H (9-20) mg/dL Creatinine 3.04 H 2.90 H (0.66-1.25) mg/dL Glucose 240 H 250 H (74-99) mg/dL POC Glucose (mg/dL) 258 H (70-110) mg/dL Calcium 6.8 L 6.9 L (8.4-10.2) mg/dL Microbiology - Last 24 Hours (Table) 09/27/22 03:00 Gram Stain - Preliminary Sputum Sputum Culture - Preliminary Assessment and Plan Assessment: Impression: Cardiac arrest Acute hypoxic respiratory failure secondary to cardiac arrest Suspect anoxic brain injury acute kidney injury secondary to acute tubular necrosis, patient is oliguric, Non-anion gap metabolic acidosis associated with kidney injury. Chronic atrial fibrillation History of benign essential hypertension Dyslipidemia History of obstructive sleep apnea syndrome History of previous head injury and intercerebral bleed. Recent history of gastroenteritis and hypovolemia on presentation Recommendation: Continue ventilatory support, vent setting changes were made. Continue bicarb drip. Hemodynamic support if necessary.Continue norepinephrine for now, patient may still be a bit hypovolemic. We are continuing IV fluids. Continue IV fluidsContinue to monitor renal profile and renal output. Neurological consultation as the patient may have severe anoxic brain injury EEG, results are pending GI and DVT prophylaxis. Nutritional support Cardiac consultation. We will continue to follow prognosis is extremely poor, Critical care time is over 30 minutes not including the time spent on procedures Time with Patient: Greater than 30
[2022-09-28 11:25] LABS: Glucose,Whole Blood 257 mg/dL (70-110)
[2022-09-28 12:27] VITALS: BMI 25.0
[2022-09-28] MEDS ORDERED: MIDAZOLAM 1 MG/ML 5 ML VIAL IV STA (12:45)
[2022-09-28] MEDS: MIDAZOLAM HCL 50 MG in SODIUM CHLORIDE 0.9% 40 ML IV SCH (14:35)
[2022-09-28] MEDS: NOREPINEPHRINE 4 MG in SODIUM CHLORIDE 0.9% 250 ML IV SCH (15:37)
[2022-09-28 16:58] LABS: Glucose,Whole Blood 263 mg/dL (70-110)
--- NOTE | 2022-09-28 17:54 | OP ---
OPERATIVE REPORT PROCEDURE PERFORMED: Placement of left radial arterial line. PREOPERATIVE DIAGNOSES: 1. Acute cardiac arrest. 2. Acute hypoxic respiratory failure. POSTOPERATIVE DIAGNOSES: 1. Acute cardiac arrest. 2. Acute hypoxic respiratory failure. ANESTHESIA USED: None deployed. DESCRIPTION OF PROCEDURE: The left wrist was prepared in a sterile fashion and drapes were applied. The left radial artery was palpated via Doppler, and it was cannulated easily, a guidewire was placed. A Cook catheter was inserted over the guidewire, and the guidewire was removed. Good blood flow, good waveform noted. No complications. Line was secured using 3.0 silk sutures. MMODL / IJN: [id number] /
[2022-09-28 20:00] LABS: Glucose,Whole Blood 265 mg/dL (70-110)
--- NOTE | 2022-09-29 00:24 | P.PN ---
Subjective Progress Note Date: 09/28/22 Patient was seen for follow-up. Patient's family members were not present today. Patient clinically not much change. Continues to have low amplitude intermittent facial twitching. Objective - Vital Signs Vital signs: Vital Signs Temp 98.2 F 09/28/22 12:00 Pulse 73 09/28/22 12:00 Resp 26 H 09/28/22 12:00 BP 120/61 09/28/22 11:00 Pulse Ox 97 09/28/22 12:00 FiO2 60 09/28/22 12:00 Intake & Output 09/27/22 09/28/22 09/28/22 18:59 06:59 18:59 Intake Total 7219.808 2850.292 190.773 Output Total 15 55 120 Balance 2813.992 9684.292 70.773 Weight 78.4 kg 79 kg Intake: IV 1300 1100 150 Sodium Chloride 0.9% 1, 1300 1100 150 000 ml @ 100 mls/hr IV . Q10H [facility] Rx#:[id number] Intake, IV Titration 30.141 224.292 40.773 Amount Norepinephrine 4 mg In 30.141 102.771 Sodium Chloride 0.9% 250 ml @ 0.03 MCG/KG/MIN 8. 295 mls/hr IV .Q24H [facility] Rx#:[id number] Norepinephrine 4 mg In 121.521 40.773 Sodium Chloride 0.9% 250 ml @ 0.03 MCG/KG/MIN 8. 961 mls/hr IV .Q24H [facility] Rx#:[id number] Oral 30 Output: Urine 15 55 120 Other: Voiding Method Indwelling Catheter Indwelling Catheter Indwelling Catheter ABP, PAP, CO, CI - Last Documented Arterial Blood Pressure 98/48 - Exam Patient's examination is unchanged. Patient continues to have lower amplitude intermittent facial twitching. Patient is comatose. Examination is unchanged. - Labs CBC & Chem 7: 09/28/22 06:11 09/28/22 10:18 Labs: Abnormal Lab Results - Last 24 Hours (Table) 09/27/22 09/27/22 09/27/22 Range/Units 16:38 18:45 20:56 WBC (3.8-10.6) k/uL RBC (4.30-5.90) m/uL Hgb (13.0-17.5) gm/dL Hct (39.0-53.0) % MCV (80.0-100.0) fL MCHC (31.0-37.0) g/dL Plt Count (150-450) k/uL Neutrophils # (1.3-7.7) k/uL ABG pH (7.35-7.45) ABG pCO2 (35-45) mmHg ABG pO2 (83-108) mmHg ABG HCO3 (21-25) mmol/L ABG Total CO2 (19-24) mmol/L ABG O2 Saturation (94-97) % Potassium (3.5-5.1) mmol/L Chloride (98-107) mmol/L Carbon Dioxide (22-30) mmol/L BUN (9-20) mg/dL Creatinine (0.66-1.25) mg/dL Glucose (74-99) mg/dL POC Glucose (mg/dL) 192 H 210 H 212 H (70-110) mg/dL Calcium (8.4-10.2) mg/dL 09/28/22 09/28/22 09/28/22 Range/Units 06:01 06:11 06:11 WBC 15.7 H (3.8-10.6) k/uL RBC 3.67 L (4.30-5.90) m/uL Hgb 11.0 L (13.0-17.5) gm/dL Hct 36.8 L (39.0-53.0) % MCV 100.3 H (80.0-100.0) fL MCHC 30.0 L (31.0-37.0) g/dL Plt Count 462 H (150-450) k/uL Neutrophils # 12.9 H (1.3-7.7) k/uL ABG pH 7.15 L* (7.35-7.45) ABG pCO2 49 H (35-45) mmHg ABG pO2 152 H (83-108) mmHg ABG HCO3 17 L (21-25) mmol/L ABG Total CO2 18 L (19-24) mmol/L ABG O2 Saturation 98.0 H (94-97) % Potassium 5.8 H (3.5-5.1) mmol/L Chloride 109 H (98-107) mmol/L Carbon Dioxide 17 L (22-30) mmol/L BUN 38 H (9-20) mg/dL Creatinine 3.04 H (0.66-1.25) mg/dL Glucose 240 H (74-99) mg/dL POC Glucose (mg/dL) (70-110) mg/dL Calcium 6.8 L (8.4-10.2) mg/dL 09/28/22 09/28/22 09/28/22 Range/Units 06:40 10:18 11:24 WBC (3.8-10.6) k/uL RBC (4.30-5.90) m/uL Hgb (13.0-17.5) gm/dL Hct (39.0-53.0) % MCV (80.0-100.0) fL MCHC (31.0-37.0) g/dL Plt Count (150-450) k/uL Neutrophils # (1.3-7.7) k/uL ABG pH (7.35-7.45) ABG pCO2 (35-45) mmHg ABG pO2 (83-108) mmHg ABG HCO3 (21-25) mmol/L ABG Total CO2 (19-24) mmol/L ABG O2 Saturation (94-97) % Potassium (3.5-5.1) mmol/L Chloride 112 H (98-107) mmol/L Carbon Dioxide 19 L (22-30) mmol/L BUN 46 H (9-20) mg/dL Creatinine 2.90 H (0.66-1.25) mg/dL Glucose 250 H (74-99) mg/dL POC Glucose (mg/dL) 258 H 257 H (70-110) mg/dL Calcium 6.9 L (8.4-10.2) mg/dL Microbiology - Last 24 Hours (Table) 09/27/22 03:00 Gram Stain - Preliminary Sputum Sputum Culture - Preliminary Assessment and Plan Assessment: * Status post cardiac arrest with prolonged downtime of 23 minutes. * Severe anoxic encephalopathy. Patient still comatose with GCS of 3. * Myoclonic twitching of the face. Possible seizure activity. * EEG with burst suppressed pattern. * Anisocoria, known in the past from previous cataract surgery. * Hypertension * Hyperlipidemia * Diabetes * Atrial fibrillation * X tobacco use Plan: * Patient continues to be comatose. Patient has low amplitude facial myoclonic activity, suggestive of possible seizure activity. Patient has failed two different antiepileptic medications. Patient's family was informed that sometimes seizures in the setting of severe anoxic encephalopathy are often difficult to treat and refractory to seizure medications. * Patient will be started on Versed 5 mg loading dose followed by 2 mg per hour to control seizure like activity. * Initial EEG EEG revealed bursts suppressed pattern. The suppressed pattern consists of isoelectric EEG, with intermittent burst of high amplitude 5 Hz generalized sharp waves lasting for 0.25-1 second intermittently. * Repeat EEG in the morning. * Repeat CT head in the morning. * Continue Dilantin 200 mg twice a day. Dilantin level was 12.4 last night. P atient given loading dose of Dilantin 500 mg at night. * Continue Keppra 1000 mg twice a day. * Patient has atrial fibrillation, but not a candidate for anticoagulation because of recent cardiac arrest with prolonged down time. * Neurology will follow. Prognosis is poor.
[2022-09-29] MEDS: SODIUM CHLORIDE 0.9% 500 ML 500 ML IV SCH (03:30)
[2022-09-29] MEDS: MIDAZOLAM HCL 50 MG in SODIUM CHLORIDE 0.9% 40 ML IV SCH (03:39)
[2022-09-29] MEDS: NOREPINEPHRINE 4 MG in SODIUM CHLORIDE 0.9% 250 ML IV SCH (05:00)
[2022-09-29 05:03] LABS: Basophils % (A) 0 %; Eosinophils % (A) 0 %; HCT 32.7 % (39.0-53.0); HGB 10.8 gm/dL (13.0-17.5); Hypochromasia Slight; Lymphocytes # (A) 1.1 k/uL (1.0-4.8); Lymphocytes % (A) 6 %; Mean Platelet Volume 8.5; Monocytes % (A) 6 %; Neutrophils # (A) 14.8 k/uL (1.3-7.7); Neutrophils % (A) 86 %; Platelet Count 388 k/uL (150-450); RBC 3.48 m/uL (4.30-5.90); RDW 12.2 % (11.5-15.5); WBC 17.3 k/uL (3.8-10.6)
[2022-09-29 05:05] LABS: MCV 94.1 fL (80.0-100.0)
[2022-09-29 05:13] LABS: Calcium 7.2 mg/dL (8.4-10.2); Potassium 4.2 mmol/L (3.5-5.1)
[2022-09-29] MEDS: DEXTROSE 5% IN WATER 1,000 ML with SODIUM BICARB (1 MEQ/ML) 150 ML IV SCH (05:19)
[2022-09-29 06:06] LABS: ABG Base Excess -1.5 mmol/L; ABG HCO3 24 mmol/L (21-25); ABG Oxygen Saturation 97.4 % (94-97); ABG PCO2 41 mmHg (35-45); ABG PH 7.38 (7.35-7.45); ABG PO2 92 mmHg (83-108); ABG TCO2 25 mmol/L (19-24); Allen Test Performed? Yes
[2022-09-29 06:15] LABS: Glucose,Whole Blood 344 mg/dL (70-110)
--- NOTE | 2022-09-29 06:47 | PN ---
PROGRESS NOTE DATE OF SERVICE: 09/28/2022 HISTORY OF PRESENT ILLNESS: This 81-year-old gentleman, who was admitted after cardiac arrest, is being closely monitored in ICU. The patient is on mechanical intubation intubation. The patient is also being evaluated for anoxic brain injury, neurology. The patient also had chronic atrial fibrillation, multiple other medical issues. PAST MEDICAL HISTORY: Reviewed. REVIEW OF SYSTEMS: Could not be taken as the patient is mechanically sedated. CURRENT MEDICATIONS: Reviewed. Include Keppra and PHYSICAL EXAMINATION: VITAL SIGNS: Pulse is 77, blood pressure ntd, respirations ntd HEENT: Conjunctivae normal. NECK: No carotid bruits. CARDIOVASCULAR: S1 and S2. RESPIRATIONS: Bilateral scattered rhonchi and crackles. ABDOMEN: Soft. NERVOUS SYSTEM: Sedated. LABORATORY DATA: Reviewed. ABGs noted, creatinine is 2.90. ASSESSMENT: 1. Cardiac arrest and ventilator-dependent respiratory failure, on mechanical ventilation. 2. Acute hypoxic respiratory failure. 3. Rule out anoxic brain injury. 4. Chronic atrial fibrillation. 5. Acute renal failure. 6. Dyslipidemia. 7. Obstructive sleep apnea. RECOMMENDATIONS AND DISCUSSION: I recommend to continue the current management and continue with Cardiology consultation. Continue with pulmonary consultation. Vent settings are noted. The prognosis is guarded. The patient is on pressor support. The cultures are. The sputum culture, final reports are pending. Once again, the prognosis guarded. Further recommendations to follow. EVIL / ASHUTOSHN: [id number] / MTDD
[2022-09-29 07:00] LABS: Glucose,Whole Blood 313 mg/dL (70-110)
[2022-09-29] MEDS: INSULIN ASPART (NovoLOG) 100 UNIT/ML VIAL SQ SCH ×3 (07:03→17:55)
--- NOTE | 2022-09-29 07:15 | XR ---
EXAMINATION TYPE: XR chest 1V portable DATE OF EXAM: 09/29/2022 5:31 AM COMPARISON: Chest radiograph from one day prior. TECHNIQUE: XR chest 1V portable Portable AP radiograph of the chest. CLINICAL INDICATION:Male, 81 years old with history of Pt is intubated; FINDINGS: Lungs/Pleura: Bibasilar atelectasis. No evidence for pneumothorax pleural effusion or focal consolida tion. Pulmonary vascularity: Unremarkable. Heart/mediastinum: Cardiomediastinal silhouette is unremarkable. Musculoskeletal: No acute osseous pathology. Right shoulder arthroplasty changes Lines/Tubes: Endotracheal tube with distal tip 4.6cm above the mark Nasogastric tube with its distal tip and side-port projecting under the diaphragm. IMPRESSION: 1. Bibasilar atelectasis with stable support tubes, no significant change from prior. 2. Small right pleural effusion.
[2022-09-29] MEDS: HEPARIN SODIUM,PORCINE/PF 5,000 UNIT/0.5 ML SYRINGE SQ SCH ×3 (07:34→15:24)
--- NOTE | 2022-09-29 10:25 | P.PN ---
Subjective Progress Note Date: 09/29/22 Patient was seen for follow-up. Patient's family members were not present today. Patient's twitching has resolved. He is on Versed drip at 2 mg per hour.patient is not clearly breathing over the ventilator. On painful stimuli, patient does not respond to any in the upper limbs. Only with the left lower limb, he did have some reflexive movement of left more than right lower extremity. Objective - Vital Signs Vital signs: Vital Signs Temp 98.4 F 09/29/22 04:00 Pulse 94 09/29/22 07:00 Resp 26 H 09/29/22 07:00 BP 116/72 09/29/22 07:00 Pulse Ox 100 09/29/22 07:00 FiO2 40 09/29/22 09:47 Intake & Output 09/28/22 09/29/22 09/29/22 18:59 06:59 18:59 Intake Total 1009.033 960.943 50 Output Total 242 370 30 Balance 767.033 590.943 20 Weight 79 kg 79.7 kg Intake: IV 220 706 50 Dextrose 5% in Water 1, 500 50 000 ml @ 50 mls/hr IV . Q23H [facility] with Sodium Bicarb (1 Meq/ml) 150 ml Rx#:[id number] Phenytoin Sodium Inj 200 36 mg In Sodium Chloride 0.9 % 36 ml @ 80 mls/hr IVPB Q12HR [facility] Rx#:[id number] Sodium Chloride 0.9% 1, 220 70 000 ml @ 100 mls/hr IV . Q10H [facility] Rx#:[id number] levETIRAcetam IV 1,000 mg 100 In Saline 1 100ml.bag @ 400 mls/hr IVPB Q12HR [facility] Rx#:[id number] Intake, IV Titration 789.033 254.943 Amount Dextrose 5% in Water 1, 600 000 ml @ 50 mls/hr IV . Q23H [facility] with Sodium Bicarb (1 Meq/ml) 150 ml Rx#:[id number] Midazolam HCl 50 mg In 26.133 Sodium Chloride 0.9% 40 ml @ 2 MG/HR 2 mls/hr IV .Q24H [facility] Rx#:[id number] Norepinephrine 4 mg In 189.033 228.810 Sodium Chloride 0.9% 250 ml @ 0.03 MCG/KG/MIN 8. 961 mls/hr IV .Q24H [facility] Rx#:[id number] Output: Urine 242 370 30 Other: Voiding Method Indwelling Catheter Indwelling Catheter ABP, PAP, CO, CI - Last Documented Arterial Blood Pressure 100/49 - Exam Patient does not have any twitches noted. Patient's pupils are unequal as baseline. Not clearly reactive. Oculocephalics and corneals are absent. Patient has no gag and cough. - Labs CBC & Chem 7: 09/29/22 04:23 09/29/22 04:23 Labs: Abnormal Lab Results - Last 24 Hours (Table) 09/28/22 09/28/22 09/28/22 Range/Units 10:18 11:24 16:56 WBC (3.8-10.6) k/uL RBC (4.30-5.90) m/uL Hgb (13.0-17.5) gm/dL Hct (39.0-53.0) % Neutrophils # (1.3-7.7) k/uL ABG Total CO2 (19-24) mmol/L ABG O2 Saturation (94-97) % Chloride 112 H (98-107) mmol/L Carbon Dioxide 19 L (22-30) mmol/L BUN 46 H (9-20) mg/dL Creatinine 2.90 H (0.66-1.25) mg/dL Glucose 250 H (74-99) mg/dL POC Glucose (mg/dL) 257 H 263 H (70-110) mg/dL Calcium 6.9 L (8.4-10.2) mg/dL 09/28/22 09/29/22 09/29/22 Range/Units 19:59 04:23 04:23 WBC 17.3 H (3.8-10.6) k/uL RBC 3.48 L (4.30-5.90) m/uL Hgb 10.8 L (13.0-17.5) gm/dL Hct 32.7 L (39.0-53.0) % Neutrophils # 14.8 H (1.3-7.7) k/uL ABG Total CO2 (19-24) mmol/L ABG O2 Saturation (94-97) % Chloride 109 H (98-107) mmol/L Carbon Dioxide (22-30) mmol/L BUN 47 H (9-20) mg/dL Creatinine 2.19 H (0.66-1.25) mg/dL Glucose 302 H (74-99) mg/dL POC Glucose (mg/dL) 265 H (70-110) mg/dL Calcium 7.2 L (8.4-10.2) mg/dL 09/29/22 09/29/22 09/29/22 Range/Units 06:02 06:13 06:59 WBC (3.8-10.6) k/uL RBC (4.30-5.90) m/uL Hgb (13.0-17.5) gm/dL Hct (39.0-53.0) % Neutrophils # (1.3-7.7) k/uL ABG Total CO2 25 H (19-24) mmol/L ABG O2 Saturation 97.4 H (94-97) % Chloride (98-107) mmol/L Carbon Dioxide (22-30) mmol/L BUN (9-20) mg/dL Creatinine (0.66-1.25) mg/dL Glucose (74-99) mg/dL POC Glucose (mg/dL) 344 H 313 H (70-110) mg/dL Calcium (8.4-10.2) mg/dL Microbiology - Last 24 Hours (Table) 09/27/22 03:00 Gram Stain - Final Sputum Sputum Culture - Final Assessment and Plan Assessment: * Status post cardiac arrest with prolonged downtime of 23 minutes. * Severe anoxic encephalopathy. Patient still comatose with GCS of 3. * Myoclonic twitching of the face. Possible seizure activity, now resolved with Versed drip. * EEG with burst suppressed pattern. * Anisocoria, known in the past from previous cataract surgery. * Hypertension * Hyperlipidemia * Diabetes * Atrial fibrillation * X tobacco use Plan: * Patient continues to be comatose. patient's seizure like activity/myoclonic twitching has resolved. Continue Versed 2 mg/h. * Initial EEG EEG revealed bursts suppressed pattern. The suppressed pattern consists of isoelectric EEG, with intermittent burst of high amplitude 5 Hz generalized sharp waves lasting for 0.25-1 second intermittently. * Repeat EEG in the morning. * Repeat CT head in the morning. * Continue Dilantin 200 mg twice a day. * Continue Keppra 1000 mg twice a day. * Patient has atrial fibrillation, but not a candidate for anticoagulation because of recent cardiac arrest with prolonged down time. * discussed with patient's in detail. Patient's daughter is arriving from [place] at 1:30 PM. Patient will undergo above testing in the morning, and may consider further care based upon above test results. * Dr. Daniel Rodrigez Will resume neurology service in the morning.
[2022-09-29] MEDS ORDERED: LACTATED RINGERS 1,000 ML IV SCH (10:30)
[2022-09-29] MEDS: levETIRAcetam IV 1,000 MG in SALINE 1 100ML.BAG IVPB SCH (10:37)
[2022-09-29] MEDS: PANTOPRAZOLE 40 MG/10 ML VIAL IVP SCH (10:37)
[2022-09-29] MEDS: CHLORHEXIDINE GLUCONATE 15 ML CUP MUCOUS MEM SCH (10:37)
[2022-09-29] MEDS: PHENYTOIN SODIUM INJ 200 MG in SODIUM CHLORIDE 0.9% 36 ML IVPB SCH (10:57)
--- NOTE | 2022-09-29 11:49 | P.PN ---
Subjective Progress Note Date: 09/29/22 Principal diagnosis: Cardiac arrest This is an 81-year-old white male with history of multiple medical problems including hypertension, chronic atrial fibrillation, COPD, type 2 diabetes, dyslipidemia, obstructive sleep apnea syndrome, history of brain bleed secondary to previous fall off the portion. Patient had a witnessed cardiac arrest yesterday by his , and he went pulseless and noted not breathing. His initiated CPR, until EMS arrived, patient received 2 rounds of epinephrine, and 3 rounds of CPR, with return of spontaneous circulation. Patient was intubated in the field by EMS, brought into the ER, he was hypotensive, placed on norepinephrine initially, patient was given significant amount of fluids as it was felt that the patient was hypovolemic. Patient had a central line placed by the ER physician, admitted to the ICU and this consult was initiated. Presently the patient is intubated and mechanically ventilated, his ventilator settings are assist control rate 16 the volume 400 FiO2 50% and PEEP of 5 ABG showed a pO2 of 138 pCO2 46 pH of 7.23, hence I recommended increasing the rate up to 20 and cutting down the FiO2 to 40%. Patient is having significant amount of facial twitching, neurological consultation is pending, EEG is pending, and I recommended a trial of 1 mg of Ativan just in case of the findings are consistent with ongoing seizures. Chest x-ray was reviewed, no active disease and I recommended advancing the endotracheal tube down to see him. Patient is now off norepinephrine, hemodynamically stable, however the patient is not responsive to any stimuli including painful stimuli. His pupils are nonreactive and fixed. Obviously the patient may have sustained a significant anoxic brain injury, CPR was done for about 15 minutes. Reevaluated today on , patient remains mechanically ventilated. Patient is on assist control rate of 20, tidal volume 400 FiO2 50% and PEEP of 8. ABG showed a pO2 of 152 pCO2 48 pH of 7.15, hence his rate was increased to 26, patient was given 1 amp of bicarb, and he was placed on a bicarb drip at 50 MLS per hour. Patient remains on norepinephrine at 0.03 mcg/kg/m, he is receiving Glucerna/enteral feeding, today I establish a left radial arterial line, and I recommended that we continue supportive care measures, apparently the neurologist did discuss the findings with the family, and gave them the picture that the patient has poor prognosis, in the meantime the patient remains full code. Chest x-ray showed bibasilar atelectasis, no significant abnormality, endotracheal tube seems to be in the proper position. Nasogastric tube is also in proper position. WBC count is 15.7 hemoglobin is 11. Basic metabolic profile is normal however his BUN is 46 creatinine 2.90, patient had very poor urine output over the last 24 hours, nephrology was consulted, patient did not improve much with diuretics. His IV fluid total today including the bicarb drip is about 70 mL per hour Reevaluated today on 10/17, remains in the ICU, intubated and mechanically ventilated. Patient is on assist control rate of 26, tidal volume 400 FiO2 40% and PEEP is at 8. His ABG showed a pO2 of 92 pCO2 of 41 pH of 7.38. Chest x- ray shows minimal basilar atelectasis. His electrolytes are normal BUN is 47 creatinine 2.19. Patient remains on first set at 2.0 mg per hour,is also on no repinephrine at 0.05 mcg/kg/m. Patient remains comatose, he does not respond to any painful stimuli, however according to the neurologist on the left lower limb he did have some reflexive movement on the left more so than the right lower extremity. His a twitching has completely resolved. And the patient will remain on first set seems to be helping his twitching which is related to ongoing seizure has resolved. Patient is also on Keppra, and he was given loading dose of Dilantin yesterday, remains on Dilantin today. Overall basically the patient is about the same, not much is happening since admission, and his neurological status is very poor. Today I discussed his condition with the neurologist was planning to repeat his EEG tomorrow, and eventually somewhat along the line we have to address the poor prognostic picture with the family and possibly consider comfort care measures in this patient Objective - Vital Signs Vital signs: Vital Signs Temp 98.3 F 09/29/22 08:00 Pulse 89 09/29/22 11:00 Resp 26 H 09/29/22 11:00 BP 110/72 09/29/22 11:00 Pulse Ox 99 09/29/22 11:00 FiO2 40 09/29/22 11:09 Intake & Output 09/28/22 09/29/22 09/29/22 18:59 06:59 18:59 Intake Total 1009.033 960.943 430 Output Total 242 370 155 Balance 767.033 590.943 275 Weight 79 kg 79.7 kg Intake: IV 220 706 430 Dextrose 5% in Water 1, 500 200 000 ml @ 50 mls/hr IV . Q23H [facility] with Sodium Bicarb (1 Meq/ml) 150 ml Rx#:[id number] Lactated Ringers 1,000 ml 50 @ 50 mls/hr IV .Q20H [facility] Rx#:[id number] Phenytoin Sodium Inj 200 36 80 mg In Sodium Chloride 0.9 % 36 ml @ 80 mls/hr IVPB Q12HR [facility] Rx#:[id number] Sodium Chloride 0.9% 1, 220 70 000 ml @ 100 mls/hr IV . Q10H [facility] Rx#:[id number] levETIRAcetam IV 1,000 mg 100 100 In Saline 1 100ml.bag @ 400 mls/hr IVPB Q12HR [facility] Rx#:[id number] Intake, IV Titration 789.033 254.943 Amount Dextrose 5% in Water 1, 600 000 ml @ 50 mls/hr IV . Q23H [facility] with Sodium Bicarb (1 Meq/ml) 150 ml Rx#:[id number] Midazolam HCl 50 mg In 26.133 Sodium Chloride 0.9% 40 ml @ 2 MG/HR 2 mls/hr IV .Q24H [facility] Rx#:[id number] Norepinephrine 4 mg In 189.033 228.810 Sodium Chloride 0.9% 250 ml @ 0.03 MCG/KG/MIN 8. 961 mls/hr IV .Q24H [facility] Rx#:[id number] Output: Urine 242 370 155 Other: Voiding Method Indwelling Catheter Indwelling Catheter ABP, PAP, CO, CI - Last Documented Arterial Blood Pressure 127/58 - Exam Physical Exam: Revealed an 81-year-old white male intubated mechanically ventilated, in no distress. Not much of a change noted in the last 24 hours in his overall clinical status Head: Atraumatic, normocephalic. HEENT:[Neck is supple.] [No neck masses.] [No thyromegaly.] [No JVD.] Pupils are fixed, nonreactive, patient has endotracheal tube in place, and orogastric tube in place. Chest: [Symmetrical chest expansion diminished breath sounds at the bases no crackles or rhonchi or wheezes Cardiac Exam: Irregular irregular rhythm, no S3 gallop, no murmur, Abdomen: [Soft, nontender, no megaly, no rebound, no guarding, normal bowel sounds.] Extremities: [No clubbing, no edema, no cyanosis.] Neurological Exam: Patient is unresponsive to any verbal or painful stimuli. Facial twitching has resolved patient was felt to have myoclonic twitching of the face, possible seizures. Resolved. Patient has oculocephalic and corneals are absent. Psychiatric: Could not assess - Labs CBC & Chem 7: 09/29/22 04:23 09/29/22 04:23 Labs: Abnormal Lab Results - Last 24 Hours (Table) 09/28/22 09/28/22 09/29/22 Range/Units 16:56 19:59 04:23 WBC 17.3 H (3.8-10.6) k/uL RBC 3.48 L (4.30-5.90) m/uL Hgb 10.8 L (13.0-17.5) gm/dL Hct 32.7 L (39.0-53.0) % Neutrophils # 14.8 H (1.3-7.7) k/uL ABG Total CO2 (19-24) mmol/L ABG O2 Saturation (94-97) % Chloride (98-107) mmol/L BUN (9-20) mg/dL Creatinine (0.66-1.25) mg/dL Glucose (74-99) mg/dL POC Glucose (mg/dL) 263 H 265 H (70-110) mg/dL Calcium (8.4-10.2) mg/dL 09/29/22 09/29/22 09/29/22 Range/Units 04:23 06:02 06:13 WBC (3.8-10.6) k/uL RBC (4.30-5.90) m/uL Hgb (13.0-17.5) gm/dL Hct (39.0-53.0) % Neutrophils # (1.3-7.7) k/uL ABG Total CO2 25 H (19-24) mmol/L ABG O2 Saturation 97.4 H (94-97) % Chloride 109 H (98-107) mmol/L BUN 47 H (9-20) mg/dL Creatinine 2.19 H (0.66-1.25) mg/dL Glucose 302 H (74-99) mg/dL POC Glucose (mg/dL) 344 H (70-110) mg/dL Calcium 7.2 L (8.4-10.2) mg/dL 09/29/22 Range/Units 06:59 WBC (3.8-10.6) k/uL RBC (4.30-5.90) m/uL Hgb (13.0-17.5) gm/dL Hct (39.0-53.0) % Neutrophils # (1.3-7.7) k/uL ABG Total CO2 (19-24) mmol/L ABG O2 Saturation (94-97) % Chloride (98-107) mmol/L BUN (9-20) mg/dL Creatinine (0.66-1.25) mg/dL Glucose (74-99) mg/dL POC Glucose (mg/dL) 313 H (70-110) mg/dL Calcium (8.4-10.2) mg/dL Microbiology - Last 24 Hours (Table) 09/27/22 03:00 Gram Stain - Final Sputum Sputum Culture - Final Assessment and Plan Assessment: Impression: Cardiac arrest, supposedly down time is about 15 minutes. Acute hypoxic respiratory failure secondary to cardiac arrest Suspect anoxic brain injury acute kidney injury secondary to acute tubular necrosis, patient is oliguric, Non-anion gap metabolic acidosis associated with kidney injury. Resolved. Chronic atrial fibrillation History of benign essential hypertension Dyslipidemia History of obstructive sleep apnea syndrome History of previous head injury and intercerebral bleed. Recent history of gastroenteritis and hypovolemia on presentation Recommendation: Continue ventilatory support, no changes made today on the ventilator settings. Sodium bicarb has been discontinued. Hemodynamic support patient remains on a small dose of norepinephrine at 0.05 mcg/kg/m Continue IV fluidsContinue to monitor renal profile and renal output. Neurological consultation as the patient may have severe anoxic brain injury EEG, results are pending GI and DVT prophylaxis. Nutritional support, patient is on enteral feeding using Nepro at 40 mL/h Repeat EEG in a.m. After EEG findings tomorrow, family may have to be approached regarding his overall clinical condition and poor neurological recovery, and should seriously consider comfort care measures on this patient. Discussed this with the neurol ogist on the case Patient is definitely critically ill. Critical care time is over 30 minutes Time with Patient: Greater than 30
--- NOTE | 2022-09-29 11:53 | P.PN ---
Subjective patient is seen for follow-up for acute kidney injury mostly associated with hypotension and status post cardiac arrest. Urine output has picked up and is currently at about 30-40 mL an hour. Patient remains on levo fed at 0.05 g FiO2 is at 40%. Patient remains unresponsive. Currently not on any sedation. Concern for underlying anoxic encephalopathy. Patient is being followed by Neurology Objective - Vital Signs Vital signs: Vital Signs Temp 98.3 F 09/29/22 08:00 Pulse 89 09/29/22 11:00 Resp 26 H 09/29/22 11:00 BP 110/72 09/29/22 11:00 Pulse Ox 99 09/29/22 11:00 FiO2 40 09/29/22 11:09 Intake & Output 09/28/22 09/29/22 09/29/22 18:59 06:59 18:59 Intake Total 1009.033 960.943 430 Output Total 242 370 155 Balance 767.033 590.943 275 Weight 79 kg 79.7 kg Intake: IV 220 706 430 Dextrose 5% in Water 1, 500 200 000 ml @ 50 mls/hr IV . Q23H [facility] with Sodium Bicarb (1 Meq/ml) 150 ml Rx#:[id number] Lactated Ringers 1,000 ml 50 @ 50 mls/hr IV .Q20H [facility] Rx#:[id number] Phenytoin Sodium Inj 200 36 80 mg In Sodium Chloride 0.9 % 36 ml @ 80 mls/hr IVPB Q12HR [facility] Rx#:[id number] Sodium Chloride 0.9% 1, 220 70 000 ml @ 100 mls/hr IV . Q10H [facility] Rx#:[id number] levETIRAcetam IV 1,000 mg 100 100 In Saline 1 100ml.bag @ 400 mls/hr IVPB Q12HR [facility] Rx#:[id number] Intake, IV Titration 789.033 254.943 Amount Dextrose 5% in Water 1, 600 000 ml @ 50 mls/hr IV . Q23H [facility] with Sodium Bicarb (1 Meq/ml) 150 ml Rx#:[id number] Midazolam HCl 50 mg In 26.133 Sodium Chloride 0.9% 40 ml @ 2 MG/HR 2 mls/hr IV .Q24H [facility] Rx#:[id number] Norepinephrine 4 mg In 189.033 228.810 Sodium Chloride 0.9% 250 ml @ 0.03 MCG/KG/MIN 8. 961 mls/hr IV .Q24H [facility] Rx#:[id number] Output: Urine 242 370 155 Other: Voiding Method Indwelling Catheter Indwelling Catheter ABP, PAP, CO, CI - Last Documented Arterial Blood Pressure 127/58 - Exam patient is on the vent. He remains unresponsive. Occasionally having twitching movements of the lower extremity and face Examination of the heart S1 and S2 Examination of the lower extremities shows no evidence of edema Abdomen is soft nontender Bilateral breath sounds are heard - Labs CBC & Chem 7: 09/29/22 04:23 09/29/22 04:23 Labs: Abnormal Lab Results - Last 24 Hours (Table) 09/28/22 09/28/22 09/29/22 Range/Units 16:56 19:59 04:23 WBC 17.3 H (3.8-10.6) k/uL RBC 3.48 L (4.30-5.90) m/uL Hgb 10.8 L (13.0-17.5) gm/dL Hct 32.7 L (39.0-53.0) % Neutrophils # 14.8 H (1.3-7.7) k/uL ABG Total CO2 (19-24) mmol/L ABG O2 Saturation (94-97) % Chloride (98-107) mmol/L BUN (9-20) mg/dL Creatinine (0.66-1.25) mg/dL Glucose (74-99) mg/dL POC Glucose (mg/dL) 263 H 265 H (70-110) mg/dL Calcium (8.4-10.2) mg/dL 09/29/22 09/29/22 09/29/22 Range/Units 04:23 06:02 06:13 WBC (3.8-10.6) k/uL RBC (4.30-5.90) m/uL Hgb (13.0-17.5) gm/dL Hct (39.0-53.0) % Neutrophils # (1.3-7.7) k/uL ABG Total CO2 25 H (19-24) mmol/L ABG O2 Saturation 97.4 H (94-97) % Chloride 109 H (98-107) mmol/L BUN 47 H (9-20) mg/dL Creatinine 2.19 H (0.66-1.25) mg/dL Glucose 302 H (74-99) mg/dL POC Glucose (mg/dL) 344 H (70-110) mg/dL Calcium 7.2 L (8.4-10.2) mg/dL 09/29/22 Range/Units 06:59 WBC (3.8-10.6) k/uL RBC (4.30-5.90) m/uL Hgb (13.0-17.5) gm/dL Hct (39.0-53.0) % Neutrophils # (1.3-7.7) k/uL ABG Total CO2 (19-24) mmol/L ABG O2 Saturation (94-97) % Chloride (98-107) mmol/L BUN (9-20) mg/dL Creatinine (0.66-1.25) mg/dL Glucose (74-99) mg/dL POC Glucose (mg/dL) 313 H (70-110) mg/dL Calcium (8.4-10.2) mg/dL Microbiology - Last 24 Hours (Table) 09/27/22 03:00 Gram Stain - Final Sputum Sputum Culture - Final Assessment and Plan Assessment: 1. Acute kidney injury ATN currently oliguric, ischemic. UA shows 2+ protein and small blood. Check ultrasound of the kidneys if aggressive care is desired. 2. Hyperkalemia associated with acute kidney injury and metabolic acidosis. Blood sugars have also been elevated contributing to the high potassium levels, currently improved 3. Non-gap metabolic acidosis associated with acute kidney injury, maintained on IV bicarb 4. Status post cardiac arrest 5. Acute hypoxic respiratory failure 6. Possible underlying seizures maintained on Dilantin 7. Chronic A. fib 8. Anoxic encephalopathy Plan: change IV bicarb to Ringer lactate Check ultrasound of the kidneys if aggressive care is desired. Renal function is currently slowly improving
--- NOTE | 2022-09-29 13:25 | CT ---
EXAMINATION TYPE: CT brain wo con CT DLP: 1063.4 mGycm, Automated exposure control for dose reduction was used. DATE OF EXAM: 09/29/2022 1:05 PM COMPARISON: 09/26/2021 CLINICAL INDICATION:Male, 81 years old with history of New neuro deficit, New Neuro deficit TECHNIQUE: Brain: Axial CT images of the brain were obtained with coronal and sagittal reformats created and rev iewed. Contrast used: None. Oral contrast used: None. FINDINGS: Brain: Extra-axial spaces: No abnormal extra-axial fluid collections. Ventricular system: High density blood products in the posterior horns of lateral ventricles Cerebral parenchyma: Right rib loss white matter differentiation the a bilateral occipital lobes series 201 image 34, left basal ganglia image 25, enlarging right basal ganglia image 26, left temporal lobe image 27 No acute intraparenchymal hemorrhage or mass effect. The remainder of the hogan-white junctions are well diff erentiated. Scattered hypoattenuating areas are seen within the white matter. Cerebellum: Hogan-white loss matter differentiation involving the medial posterior aspect of the right cerebellar hemisphere and left cerebral hemisphere posteriorly to lesser extent. This is new from . Mass effect: No evidence of midline shift. Intracranial vasculature: Atherosclerotic calcifications of the intracranial vessels. Soft tissues: Normal. Calvarium/osseous structures: No depressed skull fracture. Paranasal sinuses and mastoid air cells: Mild scattered paranasal sinus disease. Layering secretions seen within the maxillary sinuses and sphenoid sinuses. Visualized orbits: Bilateral aphakia Findings communicated to Wes Leonard on 09/29/2022 1:[address] Reese Hightower. IMPRESSION: 1. New scattered acute/subacute CVA's. These areas include the bilateral cerebellar hemispheres, stevie ateral occipital lobes, and bilateral basal ganglia. Findings suggest embolic phenomenon. Consider MR I for further evaluation. 2. New subarachnoid hemorrhage involving the bilateral posterior horns of lateral ventricles.
[2022-09-29 13:30] LABS: Glucose,Whole Blood 278 mg/dL (70-110)
--- NOTE | 2022-09-29 13:44 | CONS ---
CONSULTATION CHIEF COMPLAINT: Cardiac arrest. HISTORY OF PRESENT ILLNESS: This is an 81-year-old gentleman who has been having episodes of diarrhea for the last several days, came in having had an episode of cardiac arrest at home. He went in to the garage, heard a thud, collapsed on the floor. initiated the CPR. EMS arrived, continued with it, intubated, currently on the vent and in the ICU. I have been consulted for the same. At the time of my evaluation, patient was intubated on vent and not responsive. PAST MEDICAL HISTORY: Significant for diabetes, hypertension, and dyslipidemia. MEDICATIONS: As charted. ALLERGIES: To lisinopril. FAMILY HISTORY: Negative for premature coronary artery disease. SOCIAL HISTORY: Negative for current smoking, EtOH or drug abuse. REVIEW OF SYSTEMS: I am unable to obtain from the patient. PHYSICAL EXAMINATION: GENERAL: The patient is intubated on vent, unresponsive. VITAL SIGNS: Stable. CHEST: Reveals diminished air entry at the bases. HEART: Reveals first and second heart sounds, irregular rhythm. Systolic murmur at the apex. EXTREMITIES: Did not reveal any edema. Peripheral pulses are palpable. LABORATORY DATA: Show that the hemoglobin is 10.8, potassium is 4.2, BUN is 47, creatinine is 2.19. An echocardiogram in October 2021 showed normal LV systolic function. The patient had a cardiac catheterization on June 15 that revealed 50% stenosis involving LAD, there is history of intracranial bleed and a Watchman device. ASSESSMENT: 1. Status post cardiac arrest. 2. Persistent atrial fibrillation with controlled ventricular rate. PLAN: Continue supportive care. The patient probably suffered hypoxic encephalopathy. Neurologist is on the case. MMODL / IJN: [id number] /
[2022-09-29 15:37] VITALS: BP 112/63
[2022-09-29 16:47] LABS: Glucose,Whole Blood 225 mg/dL (70-110)
[2022-09-29 16:53] VITALS: TEMP 97.9
[2022-09-29] MEDS ORDERED: MORPHINE SULFATE 4 MG/ML SYRINGE IV PRN (19:42)
[2022-09-29] MEDS ORDERED: LORazepam 2 MG/ML INJ IV PRN (19:42)
[2022-09-29] MEDS ORDERED: MORPHINE SULFATE 2 MG/ML SYRINGE IV PRN (19:42)
[2022-09-29 20:57] VITALS: PULSE 98
--- NOTE | 2022-09-30 01:08 | PN ---
PROGRESS NOTE DATE OF SERVICE: 09/29/2022 HISTORY OF PRESENT ILLNESS: This 81-year-old gentleman admitted after cardiac arrest, also was suspected to have anoxic encephalopathy. Multiple consults following the patient closely. Neurology is also evaluate the patient with EEG and a CAT scan. Cardiology has seen the patient. The patient is noted to have atrial fibrillation with controlled ventricular rate PAST MEDICAL HISTORY: Reviewed. REVIEW OF SYSTEMS: Could not be taken because the patient is mechanically sedated. CURRENT MEDICATIONS: Reviewed include NovoLog, heparin, and dose and rest of medication noted. PHYSICAL EXAMINATION: VITAL SIGNS: Pulse is 106, blood pressure , respiration 22. HEENT: Conjunctivae normal. NECK: No carotid bruits. CARDIOVASCULAR: S1 and S2. RESPIRATIONS: A few scattered rhonchi. ABDOMEN: Soft. NERVOUS SYSTEM: Unresponsive. Vent settings are noted. LABS: Reviewed. Chest x-ray reviewed personally. Blood sugars noted. ASSESSMENT: 1. Cardiac arrest and ventilator-dependent respiratory failure, acute on mechanical ventilation. 2. Acute hypoxic respiratory failure. 3. Rule out anoxic brain injury. 4. Chronic atrial fibrillation. 5. Acute renal failure. 6. Dyslipidemia. 7. Obstructive sleep apnea. RECOMMENDATIONS AND DISCUSSION: I recommend to continue the current management and continue with vent settings, mechanical ventilation. Neurology evaluation for possible anoxic encephalopathy. Cardiology input appreciated. Prognosis guarded because of the multiple complex medical issues and further recommendations to follow. We will repeat the labs tomorrow. WENCESLAO / YAAKOV: [id number] /
--- NOTE | 2022-10-02 10:18 | CDI ---
Documentation Clarification Form Date: 10/02/2022 09:55:00 AM From: Essie Pretty Admit Date: 09/26/2022 11:03:00 PM Patient Name: Taye August Visit Number: [id number] Discharge Date: 09/29/2022 11:27:00 PM ATTENTION: The Clinical Documentation Specialists (CDI) and [facility] Coding Staff appreciate your assistance in clarifying documentation. Please respond to the clarification below the line at the bottom and electronically sign. The CDI & [facility] Coding staff will review the response and follow-up if needed. Please note: Queries are made part of the Legal Health Record. If you have any questions, please contact the author of this message via ITS. Dr. Funmilayo Hammonds, The patients principal diagnosis the diagnosis that was chiefly responsible for the admission - has not been clearly identified and clarification is requested. The patient presented with the following presents s/p cardiac arrest, History/Risk factors: persistent a fib, COPD, T2DM, Clinical Indicators: Presents s/p cardiac arrest, hypovolemia shock. Lab findings: Na 132, CO2 18, BUN 24, Lactic acid 6.7, Ca 8.2, AST 67, Glucose 223 Brain: Multilevel cervical spondylotic changes. No fracture. Cerebral atrophy and chronic small vessel ischemia. No acute intracranial abnormality. Vital Signs: T 96.0, P 90, R 16, BP 76/54, on mechanical ventilation O2 100% Treatment: Mechanical ventilation, vasopressors, gastric feeding tube, IV Keppra In your professional opinion, can you please clarify the cause of the cardiac arrest after study, was the reason chiefly responsible for the admission? [ x ] Hypovolemic shock [ ] SEMI [ ] Chronic diarrhea [ ] Other, please specify [ ] Unable to determine possible hypovolemic shock secondary to chronic diarrhea MTDD
--- NOTE | 2022-10-02 10:50 | CDI ---
Documentation Clarification Form Date: 09/29/22 From: Essie Pretty Admit Date: 09/26/2022 11:03:00 PM Patient Name: Taye August Visit Number: [id number] Discharge Date: 09/29/2022 11:27:00 PM ATTENTION: The Clinical Documentation Specialists (CDI) and [facility] Coding Staff appreciate your assistance in clarifying documentation. Please respond to the clarification below the line at the bottom and electronically sign. The CDI & [facility] Coding staff will review the response and follow-up if needed. Please note: Queries are made part of the Legal Health Record. If you have any questions, please contact the author of this message via ITS. Dr. Funmilayo Hammonds, New subarachnoid hemorrhage is documented in the 09/29 PN. For each diagnosis, documentation must be clear to determine if the condition was present at the time of the patients inpatient admission or developed during the hospital stay. Additional clarification regarding the subarachnoid hemorrhage is requested. History/Risk Factors: cardiac shock, persistent a fib, COPD, T2DM, acute & chronic hypoxic & hypercapnia respiratory failure, HTN, GERD, TEQUILA , seizures Clinical Indicators: Patient fell down steps in the garage while having a cardiac arrest. Treatment: Mechanical ventilation, vasopressors, gastric feeding tube, IV Keppra Definition of Present on Admission (POA): A diagnosis present at the time the order for admission to inpatient status was written. Please clarify if the subarachnoid hemorrhage was POA [ ] Y = Yes, the condition was present at the time of the order for inpatient admission. [ x ] N = No, the condition was not present at the time of the order for inpatient admission. [ ] W = Clinically undetermined if the condition was present at the time of the order for inpatient admission. MTDD
--- NOTE | 2022-10-07 12:45 | CDI ---
Documentation Clarification Form Date: 10/07/2022 From: Essie Pretty Admit Date: 09/26/2022 11:03:00 PM Patient Name: Taye August Visit Number: [id number] Discharge Date: 09/29/2022 11:27:00 PM ATTENTION: The Clinical Documentation Specialists (CDI) and [facility] Coding Staff appreciate your assistance in clarifying documentation. Please respond to the clarification below the line at the bottom and electronically sign. The CDI & [facility] Coding staff will review the response and follow-up if needed. Please note: Queries are made part of the Legal Health Record. If you have any questions, please contact the author of this message via ITS. Dr. Funmilayo Hammonds, SEMI is documented in which may lack sufficient clinical evidence/support in the medical record. Additional clarification is requested. 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 No Troponin I. Treatment: Mechanical ventilation, vasopressors, gastric feeding tube, IV Keppra Please clarify if SEMI is a valid diagnosis? [ ] Yes, SEMI is present as evidence by (additional clinical support): [ ] No, SEMI is ruled out [ ] Other (please specify diagnosis) [ ] Unable to determine Unable to determine MTDD
== END 2022-09-29 23:27 | disposition expired | DRG 871 ==
LOC: EC 20:40 → 2SICU 23:03
PROVIDERS: ADMIT Family Medicine; ATTEND Family Medicine
PROC: 5A1945Z Respiratory Ventilation, 24-96 Consecutive Hours (ICD-10-PCS; principal; 2022-09-26)
PROC: 3E033XZ Introduction of Vasopressor into Peripheral Vein, Percutaneous Approach (ICD-10-PCS; 2022-09-26)
PROC: 06HM33Z Insertion of Infusion Device into Right Femoral Vein, Percutaneous Approach (ICD-10-PCS; 2022-09-26)
PROC: 0DH67UZ Insertion of Feeding Device into Stomach, Via Natural or Artificial Opening (ICD-10-PCS; 2022-09-27)
PROC: 03HY32Z Insertion of Monitoring Device into Upper Artery, Percutaneous Approach (ICD-10-PCS; 2022-09-28)
PROC: 4A133B1 Monitoring of Arterial Pressure, Peripheral, Percutaneous Approach (ICD-10-PCS; 2022-09-28)
PROC: 4A133J1 Monitoring of Arterial Pulse, Peripheral, Percutaneous Approach (ICD-10-PCS; 2022-09-28)
DX: R57.1 Hypovolemic shock (principal); I60.9 Nontraumatic subarachnoid hemorrhage, unspecified; J96.01 Acute respiratory failure with hypoxia; N17.0 Acute kidney failure with tubular necrosis; I63.443 Cerebral infarction due to embolism of bilateral cerebellar arteries; G93.1 Anoxic brain damage, not elsewhere classified; E87.20 Acidosis, unspecified; I48.19 Other persistent atrial fibrillation; I67.89 Other cerebrovascular disease; J98.11 Atelectasis; I46.9 Cardiac arrest, cause unspecified; G25.3 Myoclonus; R56.9 Unspecified convulsions; J44.9 Chronic obstructive pulmonary disease, unspecified; E11.9 Type 2 diabetes mellitus without complications; Z66 Do not resuscitate; Z51.5 Encounter for palliative care; E86.1 Hypovolemia; E87.5 Hyperkalemia; I10 Essential (primary) hypertension; E78.5 Hyperlipidemia, unspecified; K52.9 Noninfective gastroenteritis and colitis, unspecified; K21.9 Gastro-esophageal reflux disease without esophagitis; G47.33 Obstructive sleep apnea (adult) (pediatric); N42.9 Disorder of prostate, unspecified; F41.9 Anxiety disorder, unspecified; H57.02 Anisocoria; H35.30 Unspecified macular degeneration; Z79.84 Long term (current) use of oral hypoglycemic drugs; Z79.899 Other long term (current) drug therapy; Z87.891 Personal history of nicotine dependence; Z86.16 Personal history of COVID-19; Z96.651 Presence of right artificial knee joint; Z96.611 Presence of right artificial shoulder joint; Z98.1 Arthrodesis status; Z87.828 Personal history of other (healed) physical injury and trauma; Z85.820 Personal history of malignant melanoma of skin; Z71.3 Dietary counseling and surveillance; Z88.8 Allergy status to other drugs, medicaments and biological substances; W10.9XXA Fall (on) (from) unspecified stairs and steps, initial encounter
CPT/HCPCS: 36415; 36556; 36600; 70450; 71045; 72125; 80048; 80053; 80185; 81001; 82805; 83605; 83735; 85025; 87070; 87205; 87324; 93005; 94002; 94003; 95822; 96365; 96366; 99291